=== PATIENT | female | born 1940 | race Caucasian/White ===

== ENCOUNTER 2018-08-25 11:48 | Observation (INO) | payer MEDICARE ==
[2018-08-25] MEDS ORDERED: FEVERALL 650 MG PR PRN (12:15)
--- NOTE | 2018-08-25 12:20 | PCM.HP.ADD ---
Addendum to History & Physical - History & Physical Addendum Addendum to History & Physical: This certifies that the History & Physical in the electronic chart reflects the current health status of the patient. If there are changes in the H&P these changes/exceptions are listed as follows.
[2018-08-25 12:34] LABS: Hematocrit 42.7 % (35-47); Hemoglobin 15.4 gm/dl (12.0-16.0); Mean Cell Volume 86.8 fl (78-100); Mean Corpuscular Hemoglobin 31.3 pg (26-32); Mean Corpuscular Hgb Concent. 36.1 g/dl (32-36); Mean Platelet Volume 9.8 fl (6-9.5); Platelet Count 214 K/mm3 (150-450); Red Blood Count 4.92 M/mm3 (4.1-5.4); Red Cell Distribution Width 13.1 % (11.5-14.0); White Blood Count 10.4 K/mm3 (4.0-10.5)
[2018-08-25] MEDS: Sodium Chloride 0.9% 1000 ML 1,000 ML IV SCH (12:47)
[2018-08-25 12:56] LABS: ALBUMIN 4.8 g/dL (3.5-5.0); ALKALINE PHOSPHATASE 109 U/L (38-126); ANION GAP 19.1 MEQ/L (5-15); BLOOD UREA NITROGEN 17 mg/dL (7-17); CHLORIDE 92 mmol/L (98-107); Calcium 10.4 mg/dL (8.4-10.2); Carbon Dioxide 22 mmol/L (22-30); Creatinine 1 0.95 mg/dL (0.52-1.04); Glucose 108 mg/dL (74-106); NT PRO BNP 66.1 pg/mL (0-1800); Potassium 4.8 mmol/L (3.5-5.1); SGOT/AST 48 U/L (14-36); SGPT/ALT 43 U/L (0-35); SODIUM 127 mmol/L (137-145); Total Protein 8.9 g/dL (6.3-8.2)
[2018-08-25] MEDS: BUMEX 1 MG IV SCH ×2 (13:00→17:23)
[2018-08-25 13:03] LABS: TROPONIN < 0.012 ng/mL (0.000-0.034)
--- NOTE | 2018-08-25 14:30 | XRAY ---
Indication: CHF. Comparison: None PA/lateral chest is clear. Heart is not enlarged with left-sided AICD. Vascularity normal. Bony thorax intact with mild osteopenia and degenerative changes. Impression: Nonacute chest with chronic features.
[2018-08-25] MEDS ORDERED: ZOVIRAX 200 MG PO PRN (17:00)
[2018-08-25] MEDS ORDERED: MEDICATION INTERVENTION PO SCH (17:00)
[2018-08-25] MEDS: THERAGRAN MULTIVITAMIN PO SCH (17:22)
[2018-08-25] MEDS: ZYLOPRIM 100 MG PO SCH (17:22)
[2018-08-25] MEDS: Zocor 10MG PO SCH (17:23)
[2018-08-25] MEDS: ECOTRIN 81 MG PO SCH (17:23)
[2018-08-25] MEDS ORDERED: CANNABIDIOL PO SCH (22:00)
[2018-08-25] MEDS: Coreg 3.125 MG PO SCH (23:36)
[2018-08-25] MEDS: Aldactone 25 MG PO SCH (23:36)
[2018-08-25] MEDS: Ditropan 5 MG PO SCH (23:37)
[2018-08-25] MEDS: Namenda 5 MG PO SCH (23:37)
[2018-08-26 04:18] LABS: Appearance TURBID (CLEAR); Bacteria MODERATE /HPF (NEGATIVE); Bilirubin NEGATIVE (NEGATIVE); Blood SMALL Ery/ul (0-5); Epithelial Cells RARE /HPF (FEW); Glucose NEGATIVE (NEGATIVE); Ketones NEGATIVE (NEGATIVE); Leukocyte Esterase LARGE (NEGATIVE); Nitrite NEGATIVE (NEGATIVE); Protein,Urine Dip 30 (Negative); Specific Gravity 1.006 (1.005-1.025); Urobilinogen NEGATIVE mg/dL (0-1); WBC >100 /HPF (0-5)
[2018-08-26] MEDS: Sodium Chloride 0.9% 1000 ML 1,000 ML IV SCH (08:00)
[2018-08-26] MEDS ORDERED: NON-FORMULARY ITEM (Rosuvastatin Calcium [Rosuvastatin Calcium] 5 MG) PO SCH (10:00)
[2018-08-26] MEDS ORDERED: VITAMIN D2 PO SCH (10:00)
[2018-08-26] MEDS ORDERED: NON-FORMULARY ITEM (Multivitamin [Multivitamins] 1 EACH) PO SCH (10:00)
[2018-08-26] MEDS: THERAGRAN MULTIVITAMIN PO SCH (10:33)
[2018-08-26] MEDS: Coreg 3.125 MG PO SCH ×2 (10:34→22:12)
[2018-08-26] MEDS: ECOTRIN 81 MG PO SCH (10:34)
[2018-08-26] MEDS: ZYLOPRIM 100 MG PO SCH (10:34)
[2018-08-26] MEDS: Namenda 5 MG PO SCH ×2 (10:34→22:12)
[2018-08-26] MEDS: Zocor 10MG PO SCH (10:34)
[2018-08-26] MEDS: Ditropan 5 MG PO SCH ×2 (10:36→22:12)
[2018-08-26] MEDS: Imdur 30 MG PO SCH (10:36)
[2018-08-26] MEDS: Aldactone 25 MG PO SCH ×3 (10:41→22:12)
[2018-08-26] MEDS: BUMEX 1 MG IV SCH ×2 (11:00→17:17)
[2018-08-26 11:30] LABS: ANION GAP 16.2 MEQ/L (5-15); Calcium 9.8 mg/dL (8.4-10.2); Creatinine 1 1.04 mg/dL (0.52-1.04); Potassium 4.5 mmol/L (3.5-5.1)
--- NOTE | 2018-08-26 13:17 | PCM.NOTE ---
Date and Time: 08/26/18 1316 Subjective Assessment: doing better - Review of Systems Constitutional: No Fever, No Chills Eyes: No Symptoms Ears, Nose, & Throat: No Symptoms Respiratory: No Cough, No Short Of Breath Cardiac: No Chest Pain, No Edema, No Syncope Abdominal/Gastrointestinal: No Abdominal Pain, No Nausea, No Vomiting, No Diarrhea Genitourinary Symptoms: No Dysuria Musculoskeletal: No Back Pain, No Neck Pain Skin: No Rash Neurological: No Dizziness, No Focal Weakness, No Sensory Changes Psychological: No Symptoms Endocrine: No Symptoms Hematologic/Lymphatic: No Symptoms Immunological/Allergic: No Symptoms Objective Exam General Appearance: no apparent distress, alert Neurologic Exam: alert, oriented x 3, cooperative, normal mood/affect, nml cerebellar function, sensation nml, No motor deficits Skin Exam: normal color, warm, dry Eye Exam: PERRL, EOMI, eyes nml inspection Ears, Nose, Throat Exam: normal ENT inspection, pharynx normal, moist mucous membranes Neck Exam: normal inspection, non-tender, supple, full range of motion Respiratory Exam: normal breath sounds, lungs clear, No respiratory distress Cardiovascular Exam: regular rate/rhythm, normal heart sounds Gastrointestinal/Abdomen Exam: soft, No tenderness, No mass Extremity Exam: normal inspection, normal range of motion Back Exam: normal inspection, normal range of motion, No CVA tenderness, No vertebral tenderness Pelvic Exam: deferred Rectal Exam: deferred OBJECTIVE DATA Vital Signs: Vital Signs - 24 hr Temp Pulse Resp BP Pulse Ox 08/26/18 12:00 18 08/26/18 11:47 98.1 F 72 18 114/63 96 08/26/18 10:22 88 L 08/26/18 08:00 20 08/26/18 07:25 97.8 F 77 20 129/61 96 08/26/18 06:48 96 08/26/18 04:05 97.6 F 72 20 129/84 94 L 08/26/18 04:00 22 08/26/18 00:00 20 08/25/18 23:38 98.4 F 86 22 119/59 95 08/25/18 23:25 94 L 08/25/18 20:00 22 08/25/18 19:38 97.7 F 80 22 136/70 95 08/25/18 16:03 98.4 F 70 18 117/66 95 08/25/18 13:51 60 18 98 Pain Assessment - Last Documented Pain Intensity 0 Pain Scale Used 0-10 Pain Scale Intake and Output: Intake & Output 08/24/18 08/25/18 08/26/18 08/27/18 11:59 11:59 11:59 11:59 Intake Total 2215 Output Total 2700 Balance -485 Weight 78.2 kg Lab Results: Lab Results-Last 24 Hours 08/26/18 08/26/18 Range/Units 03:58 10:56 Sodium 131 L (137-145) mmol/L Potassium 4.5 (3.5-5.1) mmol/L Chloride 94 L (98-107) mmol/L Carbon Dioxide 25 (22-30) mmol/L Anion Gap 16.2 H (5-15) MEQ/L BUN 23 H (7-17) mg/dL Creatinine 1.04 (0.52-1.04) mg/dL Estimated GFR 54.5 ML/MIN Glucose 123 H (74-106) mg/dL Calcium 9.8 (8.4-10.2) mg/dL Urine Color YELLOW (YELLOW) Urine Appearance TURBID (CLEAR) Urine pH 6.0 (5-6) Ur Specific [place] 1.006 (1.005-1.025) Urine Protein 30 (Negative) Urine Ketones NEGATIVE (NEGATIVE) Urine Blood SMALL (0-5) Joao/ul Urine Nitrite NEGATIVE (NEGATIVE) Urine Bilirubin NEGATIVE (NEGATIVE) Urine Urobilinogen NEGATIVE (0-1) mg/dL Ur Leukocyte Esterase LARGE (NEGATIVE) Urine WBC (Auto) >100 (0-5) /HPF Urine RBC (Auto) 6-10 (0-2) /HPF U Epithel Cells (Auto) RARE (FEW) /HPF Urine Bacteria (Auto) MODERATE (NEGATIVE) /HPF Urine Culture Reflexed YES (NO) Urine Glucose NEGATIVE (NEGATIVE) mg/dL Radiology Exams: Radiology Procedures Category Date Time Status CHEST 2 VIEWS (PA AND LAT) Stat Exams 08/25/18 12:16 Completed Multi-Disciplinary Progress Notes: Multi-Disciplinary Progress Notes 08/26/18 09:34 Respiratory Note by Chrystal Chauhan PATIENTS O2 SAT ON ROOM AIR WHILE AT REST WAS 88%. PATIENT WAS THEN PLACED ON 2 LPM NASAL CANNULA. O2 SAT INCREASED TO 96%. Josh CHAUHAN BAND LINING BANDER Initialized on 08/26/18 09:34 - END OF NOTE Assessment/Plan (1) CHF (congestive heart failure), NYHA class III Current Visit: Yes Status: Acute Code(s): I50.9 - HEART FAILURE, UNSPECIFIED
[2018-08-26] MEDS ORDERED: Miralax Powder 17GM PACKET PO ONE (14:59)
[2018-08-27] MEDS: Sodium Chloride 0.9% 1000 ML 1,000 ML IV SCH (04:34)
[2018-08-27] MEDS: Coreg 3.125 MG PO SCH (09:56)
[2018-08-27] MEDS: Aldactone 25 MG PO SCH (09:57)
[2018-08-27] MEDS: Namenda 5 MG PO SCH (09:57)
[2018-08-27] MEDS: ECOTRIN 81 MG PO SCH (09:57)
[2018-08-27] MEDS: Ditropan 5 MG PO SCH (09:58)
[2018-08-27] MEDS: THERAGRAN MULTIVITAMIN PO SCH (09:59)
[2018-08-27] MEDS: ZYLOPRIM 100 MG PO SCH (09:59)
[2018-08-27] MEDS: Zocor 10MG PO SCH (10:00)
[2018-08-27] MEDS: Imdur 30 MG PO SCH (10:02)
[2018-08-27] MEDS: BUMEX 1 MG IV SCH (10:03)
--- NOTE | 2018-08-27 11:55 | PCM.DS ---
Discharge Summary Date of Admission: 08/25/18 11:48 Admitting Physician: JAZZY RICHTER Consults: Consults on Case 08/25/18 12:15 Nutritional Consult ROUTINE Primary Care Provider: EDDIE RICHTERYESH Allergies Allergies ciprofloxacin [From Cipro] Allergy (Mild, Verified 08/25/18 18:50) Rash donepezil Allergy (Mild, Verified 08/25/18 18:46) Nausea duloxetine [From Cymbalta] Allergy (Mild, Verified 08/25/18 18:50) Rash gabapentin Allergy (Mild, Verified 08/25/18 18:49) Rash Penicillins Allergy (Mild, Verified 02/03/13 10:54) rashes Sulfa (Sulfonamide Antibiotics) Allergy (Mild, Unverified 02/03/13 10:54) Hives cortisone [Cortisone] Allergy (Unknown, Unverified 02/02/13 14:09) omeprazole Allergy (Unknown, Unverified 02/03/13 10:54) Hospital Summary - Vitals & Intake/Output Vital Signs: Vital Signs Temperature 98 F 08/27/18 08:00 Pulse Rate 67 08/27/18 08:00 Respiratory Rate 18 08/27/18 08:00 Blood Pressure 113/61 08/27/18 08:00 O2 Sat by Pulse Oximetry 95 08/27/18 08:00 Oxygen-Last Documented O2 Percentage 2 Liters = 28% Intake & Output: Intake & Output 08/24/18 08/25/18 08/26/18 08/27/18 11:59 11:59 11:59 11:59 Intake Total 2215 2417 Output Total 2700 2950 Balance -485 -533 Weight 78.2 kg 78.7 kg - Lab Result Diagrams: 08/25/18 12:31 08/26/18 10:56 Micro Results-Entire Visit: Microbiology 08/26/18 03:58 Urine Culture - Final Urine, Void MIXED LEVI; 3 OR MORE TYPES. NO PREDOMINANT ORGANISM. NO FURTHER WORKUP. PLEASE RESUBMIT IF CLINICALLY INDICATED. - Radiology Exams Ordered Rad Exams-Entire Visit: Radiology Procedures Category Date Time Status CHEST 2 VIEWS (PA AND LAT) Stat Exams 08/25/18 12:16 Completed - Procedures and Test Procedures and Tests throughout Hospitalization: Therapy Orders & Screens 08/25/18 12:15 EKG STAT Comment: Diagnosis: CHF Oxygen NASAL CANNULA 2 lpm Comment: Diagnosis: CHF Respiratory Therapy Consult ROUTINE Comment: Reason For Exam: 08/26/18 06:52 Respiratory Therapy Assessment DAILY Comment: Diagnosis: CHF Discharge Exam General Appearance: no apparent distress, alert Neurologic Exam: alert, oriented x 3, cooperative, normal mood/affect, nml cerebellar function, sensation nml, No motor deficits Skin Exam: normal color, warm, dry Eye Exam: PERRL, EOMI, eyes nml inspection Ears, Nose, Throat Exam: normal ENT inspection, pharynx normal, moist mucous membranes Neck Exam: normal inspection, non-tender, supple, full range of motion Respiratory Exam: normal breath sounds, lungs clear, No respiratory distress Cardiovascular Exam: regular rate/rhythm, normal heart sounds Gastrointestinal/Abdomen Exam: soft, No tenderness, No mass Extremity Exam: normal inspection, normal range of motion Back Exam: normal inspection, normal range of motion, No CVA tenderness, No vertebral tenderness Pelvic Exam: deferred Rectal Exam: deferred Final Diagnosis/Problem List - Final Discharge Diagnosis/Problem (1) CHF (congestive heart failure), NYHA class III Current Visit: Yes Status: Acute Code(s): I50.9 - HEART FAILURE, UNSPECIFIED (2) HTN (hypertension) Current Visit: Yes Status: Acute Code(s): I10 - ESSENTIAL (PRIMARY) HYPERTENSION (3) CAD (coronary artery disease) Current Visit: Yes Status: Chronic Code(s): I25.10 - ATHSCL HEART DISEASE OF [place] CORONARY ARTERY W/O ANG PCTRS (4) COPD (chronic obstructive pulmonary disease) Current Visit: Yes Status: Acute (5) COPD exacerbation Current Visit: Yes Status: Acute Assessment & Plan: Patient requires 2 liters of Oxygen. Code(s): J44.1 - CHRONIC OBSTRUCTIVE PULMONARY DISEASE W (ACUTE) EXACERBATION - Discharge Discharge Date: 08/27/18 Disposition: HOME HEALTH SERVICE Condition: Stable Prescriptions: Continue Isosorbide Mononitrate 30 mg [Imdur 30 MG] 30 mg PO DAILY Spironolactone 25 mg [Aldactone 25 MG] 50 mg PO TID Aspirin EC 81 mg [Ecotrin 81 mg] 81 mg PO DAILY Ergocalciferol (Vitamin D2) [Vitamin D2] 50,000 unit PO DAILY Oxybutynin Chloride 5 mg [Ditropan 5 MG] 5 mg PO BID Memantine HCl 5 mg PO BID Rosuvastatin Calcium 5 mg PO DAILY Carvedilol 3.125 mg [Coreg 3.125 MG] 3.125 mg PO BID Acyclovir 200 mg Cap [Zovirax 200 mg ] 200 mg PO BID PRN Allopurinol 100 mg [Zyloprim 100 mg] 100 mg PO DAILY Cannabidiol (Cbd) Extract [Epidiolex] 100 ml PO BID Multivitamin [Multivitamins] 1 each PO DAILY Additional Instructions: [place] TO SUPPLY YOUR HOME OXYGEN [facility] WILL CALL YOU TO ARRANGE YOUR FIRST VISIT Follow up with: ISRRAEL HOPKINS [CONSULTING PHYSICIAN] - 1 Week JAZZY RICHTER MD [Primary Care Provider] - 1 Week
[2018-08-27 12:23] VITALS: BP 109/56; PULSE 90; O2SAT 96
[2018-08-27] MEDS ORDERED: SENOKOT 8.6 MG PO ONE (13:53)
[2018-09-19] MEDS ORDERED: VITAMIN D2 PO SCH (10:00)
== END 2018-08-27 15:10 | disposition home health service (06) ==
LOC: MED SURG 11:48
PROVIDERS: ADMIT General Practice; ATTEND General Practice
DX: I50.9 Heart failure, unspecified (principal); I10 Essential (primary) hypertension; I25.10 Atherosclerotic heart disease of native coronary artery without angina pectoris; J44.1 Chronic obstructive pulmonary disease with (acute) exacerbation; E78.5 Hyperlipidemia, unspecified; Z79.899 Other long term (current) drug therapy
CPT/HCPCS: 36415; 71046; 80048; 80053; 81001; 83880; 84484; 85027; 87086; 93005; 93268; 94760; 94762; G0378; A9270-GY

== ENCOUNTER 2018-09-16 18:05 | Observation (INO) | payer MEDICARE ==
[2018-09-16] MEDS ORDERED: Sodium Chloride 0.9% 1000 ML 1,000 ML IV SCH (18:45)
[2018-09-16 18:51] LABS: BASOPHIL % 0.2 % (0.0-0.4); Basophil (Absolute #) 0.02 (0-0.4); Eosinophil % 1.9 % (0.00-5.0); Eosinophil (Absolute #) 0.18 (0-0.5); Granulocyte Absolute (ANC) 5.68 (1.4-6.9); Hematocrit 34.6 % (35-47); Hemoglobin 12.5 gm/dl (12.0-16.0); Lymphocytes % 30.1 % (24.0-44.0); Mean Cell Volume 88.9 fl (78-100); Mean Corpuscular Hemoglobin 32.1 pg (26-32); Mean Corpuscular Hgb Concent. 36.1 g/dl (32-36); Mean Platelet Volume 9.5 fl (6-9.5); Monocyte (Absolute #) 0.85 (0.0-1.3); Monocytes % 8.8 % (0.0-12.0); Platelet Count 239 K/mm3 (150-450); Red Blood Count 3.89 M/mm3 (4.1-5.4); Red Cell Distribution Width 13.1 % (11.5-14.0); White Blood Count 9.6 K/mm3 (4.0-10.5)
[2018-09-16 19:01] LABS: ALBUMIN 4.1 g/dL (3.5-5.0); ALKALINE PHOSPHATASE 87 U/L (38-126); AMYLASE 135 U/L (30-110); ANION GAP 15.8 MEQ/L (5-15); BLOOD UREA NITROGEN 13 mg/dL (7-17); CHLORIDE 88 mmol/L (98-107); Calcium 9.6 mg/dL (8.4-10.2); Carbon Dioxide 27 mmol/L (22-30); Creatinine 1 0.87 mg/dL (0.52-1.04); Glucose 130 mg/dL (74-106); LIPASE 1077 U/L (23-300); Potassium 5.1 mmol/L (3.5-5.1); SGOT/AST 34 U/L (14-36); SGPT/ALT 30 U/L (0-35); SODIUM 125 mmol/L (137-145); Total Protein 7.4 g/dL (6.3-8.2)
[2018-09-16 19:03] LABS: Appearance CLOUDY (CLEAR); Bilirubin NEGATIVE (NEGATIVE); Blood MODERATE Ery/ul (0-5); Glucose NEGATIVE (NEGATIVE); Ketones NEGATIVE (NEGATIVE); Leukocyte Esterase LARGE (NEGATIVE); Nitrite NEGATIVE (NEGATIVE); Protein,Urine Dip 30 (Negative); Specific Gravity 1.003 (1.005-1.025); Urobilinogen NEGATIVE mg/dL (0-1); WBC >100 /HPF (0-5)
[2018-09-16] MEDS ORDERED: Sodium Chloride 0.9% 1000 ML 1,000 ML ONE (19:10)
--- NOTE | 2018-09-16 19:27 | ERPHSYRPT ---
- History of Present Illness Time Seen by Provider: 09/16/18 19:05 Historian: patient, family Exam Limitations: no limitations Patient Subjective Stated Complaint: Pt states "I have been having trouble moving my bowels for the past month. I am taking mirilax every day and I go a little every morning but not much. I feel like my belly is going to explode." Triage Nursing Assessment: Pt presented through the front, alert and oriented X 3, skin pwd. PT ambulates with 2 canes, slowly, facial grimace. PT in no apparent respiratory distress. Physician History: 78 y/o white female patient of Dr. Ang, who has had no prior abd surgeries and chronic intermittent problems with constipation. pt states sx worse in the last month. pt felt as though her abd was going to burst today. pt is on daily miralax and senna. this has only helped a bit. pt has not used enemas or suppositories. pt has an appt to see a pharmacy informatics manager tomorrow in consultation for an upper endoscopy. pt states she has passed a small amt of stool here and flatus and feels a little better. no n/v. pt has had a normal colonoscopy in past but does not recall when. Timing/Duration: intermittent, other (a month) Quality: fullness, pressure Abdominal Pain Onset Location: generalized abdomen Pain Radiation: no radiation Severity of Pain-Max: moderate Severity of Pain-Current: mild Modifying Factors: Improves With: defecating, other (passing flatus helped) Associated Symptoms: No nausea, No vomiting Previous symptoms: same symptoms as today, recently treated Allergies/Adverse Reactions: ciprofloxacin [From Cipro] Allergy (Mild, Verified 08/25/18 18:50) Rash donepezil Allergy (Mild, Verified 08/25/18 18:46) Nausea duloxetine [From Cymbalta] Allergy (Mild, Verified 08/25/18 18:50) Rash gabapentin Allergy (Mild, Verified 08/25/18 18:49) Rash Penicillins Allergy (Mild, Verified 02/03/13 10:54) rashes Sulfa (Sulfonamide Antibiotics) Allergy (Mild, Unverified 02/03/13 10:54) Hives cortisone [Cortisone] Allergy (Unknown, Unverified 02/02/13 14:09) omeprazole Allergy (Unknown, Unverified 02/03/13 10:54) Home Medications: Aspirin EC 81 mg [Ecotrin 81 mg] 81 mg PO DAILY 02/02/13 [History] Isosorbide Mononitrate 30 mg [Imdur 30 MG] 30 mg PO DAILY 02/02/13 [History ] Spironolactone 25 mg [Aldactone 25 MG] 50 mg PO TID 02/02/13 [History] Acyclovir 200 mg Cap [Zovirax 200 mg ] 200 mg PO BID PRN 08/25/18 [ History] Allopurinol 100 mg [Zyloprim 100 mg] 100 mg PO DAILY 08/25/18 [History] Cannabidiol (Cbd) Extract [Epidiolex] 100 ml PO BID 08/25/18 [History] Carvedilol 3.125 mg [Coreg 3.125 MG] 3.125 mg PO BID 08/25/18 [History] Ergocalciferol (Vitamin D2) [Vitamin D2] 50,000 unit PO DAILY 08/25/18 [History] Memantine HCl 5 mg PO BID 08/25/18 [History] Multivitamin [Multivitamins] 1 each PO DAILY 08/25/18 [History] Oxybutynin Chloride 5 mg [Ditropan 5 MG] 5 mg PO BID 08/25/18 [History] Rosuvastatin Calcium 5 mg PO DAILY 08/25/18 [History] Hx Tetanus, Diphtheria Vaccination/Date Given: No Hx Influenza Vaccination/Date Given: Yes Hx Pneumococcal Vaccination/Date Given: Yes Immunizations Up to Date: Yes - Review of Systems Constitutional: No Symptoms Eyes: No Symptoms Ears, Nose, & Throat: No Symptoms Cardiac: No Symptoms Abdominal/Gastrointestinal: Abdominal Pain, Constipation Genitourinary Symptoms: Dysuria Musculoskeletal: No Symptoms Skin: No Symptoms Neurological: No Symptoms Psychological: No Symptoms Endocrine: No Symptoms Hematologic/Lymphatic: No Symptoms Immunological/Allergic: No Symptoms All Other Systems: Reviewed and Negative - Past Medical History Pertinent Past Medical History: Yes Neurological History: Migraines ENT History: Cataracts Cardiac History: Congestive Heart Failure, High Cholesterol, Hypertension Respiratory History: CHF Endocrine Medical History: No Pertinent History Musculoskeletal History: Arthritis, Osteoarthritis GI Medical History: Diverticulosis, GERD, Polyps History: Renal Disease Psycho-Social History: Anxiety Female Reproductive Disorders: Abnormal Uterine Bleeding 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 testing for ovarian cancer - Past Surgical History Past Surgical History: Yes Neuro Surgical History: No Pertinent History Cardiac: Cardiac Catheterization, Internal Defibrillator, Pacemaker Respiratory: No Pertinent History Gastrointestinal: Cholecystectomy Genitourinary: Other Musculoskeletal: Other Female Surgical History: Hysterectomy Other Surgical History: right knee Arthoscopy - Social History Smoking Status: Never smoker Exposure to second hand smoke: No Drug Use: none Patient Lives Alone: Yes - Female History Hx Now: No - Nursing Vital Signs Nursing Vital Signs: Initial Vital Signs Temperature 98.5 F 09/16/18 18:18 Pulse Rate 66 09/16/18 18:18 Respiratory Rate 16 09/16/18 18:18 Blood Pressure 143/64 09/16/18 18:18 O2 Sat by Pulse Oximetry 97 09/16/18 18:18 Pain Scale Pain Intensity 0 - Physical Exam General Appearance: mild distress, alert, anxiety Eye Exam: PERRL/EOMI, eyes nml inspection Ears, Nose, Throat Exam: normal ENT inspection, moist mucous membranes Neck Exam: normal inspection, non-tender, supple, full range of motion Respiratory Exam: normal breath sounds, lungs clear, airway intact, No chest tenderness, No respiratory distress Cardiovascular Exam: regular rate/rhythm, normal heart sounds, normal peripheral pulses Gastrointestinal/Abdomen Exam: soft, normal bowel sounds, No tenderness, No guarding, No rebound Pelvic Exam: not done Rectal Exam: not done Back Exam: normal inspection, normal range of motion, No CVA tenderness, No vertebral tenderness Extremity Exam: normal inspection, normal range of motion, pelvis stable Neurologic Exam: alert, oriented x 3, cooperative, cloth tester quality II-XII nml as tested, normal mood/affect, nml cerebellar function, nml station & gait Skin Exam: normal color, warm, dry Lymphatic Exam: No adenopathy SpO2 Interpretation: normal SpO2: 97 - Course Nursing assessment & vital signs reviewed: Yes Ordered Tests: Active Orders 24 hr Category Date Time Status IV Insertion STAT Care 09/16/18 19:04 Active ABDOMEN AND PELVIS W/0 CONTRAS [CT] Stat Exams 09/16/18 19:28 Taken AMYLASE Stat Lab 09/16/18 18:37 Completed CBC W DIFF Stat Lab 09/16/18 18:37 Completed CMP Stat Lab 09/16/18 18:37 Completed CULTURE,URINE Stat Lab 09/16/18 18:32 Received LIPASE Stat Lab 09/16/18 18:37 Completed Lactic Acid Stat Lab 09/16/18 20:17 Completed UA W/RFX UR CULTURE Stat Lab 09/16/18 18:32 Completed Medication Summary Generic Name Dose Route Start Last Admin Trade Name Freq PRN Reason Stop Dose Admin Sodium Chloride 1,000 mls @ 100 mls/hr 09/16/18 18:45 09/16/18 19:10 Sodium Chloride 0.9% 1000 Ml IV 10/16/18 18:44 100 mls/hr .Q10H NAVIN Administration Discontinued Medications Generic Name Dose Route Start Last Admin Trade Name Freq PRN Reason Stop Dose Admin Hydromorphone HCl 0.5 mg 09/16/18 20:31 09/16/18 20:56 Hydromorphone 1 Mg/Ml Ampule IV 09/16/18 20:32 0.5 mg STAT ONE Administration Hydromorphone HCl Confirm 09/16/18 20:56 Hydromorphone 1 Mg/Ml Ampule Administered 09/16/18 20:57 Dose 1 mg .ROUTE .STK-MED ONE Ceftriaxone Sodium/Dextrose 1 g in 50 mls @ 100 mls/hr 09/16/18 20:32 00:41 Rocephin 1 Gm-D5w 50 Ml Bag IV 09/16/18 21:01 100 mls/hr STAT STA 100 mls/hr Administration Ceftriaxone Sodium/Dextrose Confirm 09/16/18 20:56 Rocephin 1 Gm-D5w 50 Ml Bag Administered 09/16/18 20:57 Dose 1 g in 50 mls @ ud IV .STK-MED ONE Ondansetron HCl 4 mg 09/16/18 20:31 09/17/18 00:41 Zofran 4 Mg/2 Ml Vial IV 09/16/18 20:32 4 mg STAT ONE Administration Ondansetron HCl Confirm 09/17/18 00:36 Zofran 4 Mg/2 Ml Vial Administered 09/17/18 00:37 Dose 4 mg .ROUTE .STK-MED ONE Lab/Rad Data: Laboratory Result Diagrams 09/16/18 18:37 09/16/18 18:37 Laboratory Results 09/16/18 09/16/18 09/16/18 Range/Units 20:17 18:37 18:37 WBC 9.6 (4.0-10.5) K/mm3 RBC 3.89 L (4.1-5.4) M/mm3 Hgb 12.5 (12.0-16.0) gm/dl Hct 34.6 L (35-47) % MCV 88.9 (78-100) fl MCH 32.1 H (26-32) pg MCHC 36.1 H (32-36) g/dl RDW 13.1 (11.5-14.0) % Plt Count 239 (150-450) K/mm3 MPV 9.5 (6-9.5) fl Gran % 59.0 (36.0-66.0) % Eos # (Auto) 0.18 (0-0.5) Absolute Lymphs (auto) 2.90 (1.0-4.6) Absolute Monos (auto) 0.85 (0.0-1.3) Lymphocytes % 30.1 (24.0-44.0) % Monocytes % 8.8 (0.0-12.0) % Eosinophils % 1.9 (0.00-5.0) % Basophils % 0.2 (0.0-0.4) % Absolute Granulocytes 5.68 (1.4-6.9) Basophils # 0.02 (0-0.4) Sodium 125 L (137-145) mmol/L Potassium 5.1 (3.5-5.1) mmol/L Chloride 88 L (98-107) mmol/L Carbon Dioxide 27 (22-30) mmol/L Anion Gap 15.8 H (5-15) MEQ/L BUN 13 (7-17) mg/dL Creatinine 0.87 (0.52-1.04) mg/dL Estimated GFR > 60.0 ML/MIN Glucose 130 H (74-106) mg/dL Lactic Acid 1.7 (0.4-2.0) Calcium 9.6 (8.4-10.2) mg/dL Total Bilirubin 0.40 (0.2-1.3) mg/dL AST 34 (14-36) U/L ALT 30 (0-35) U/L Alkaline Phosphatase 87 (38-126) U/L Serum Total Protein 7.4 (6.3-8.2) g/dL Albumin 4.1 (3.5-5.0) g/dL Amylase 135 H (30-110) U/L Lipase 1077 H (23-300) U/L Urine Color (YELLOW) Urine Appearance (CLEAR) Urine pH (5-6) Ur Specific [place] (1.005-1.025) Urine Protein (Negative) Urine Ketones (NEGATIVE) Urine Blood (0-5) Joao/ul Urine Nitrite (NEGATIVE) Urine Bilirubin (NEGATIVE) Urine Urobilinogen (0-1) mg/dL Ur Leukocyte Esterase (NEGATIVE) Urine WBC (Auto) (0-5) /HPF Urine RBC (Auto) (0-2) /HPF U Epithel Cells (Auto) (FEW) /HPF Urine Bacteria (Auto) (NEGATIVE) /HPF Urine Culture Reflexed (NO) Urine Glucose (NEGATIVE) mg/dL 09/16/18 Range/Units 18:32 WBC (4.0-10.5) K/mm3 RBC (4.1-5.4) M/mm3 Hgb (12.0-16.0) gm/dl Hct (35-47) % MCV (78-100) fl MCH (26-32) pg MCHC (32-36) g/dl RDW (11.5-14.0) % Plt Count (150-450) K/mm3 MPV (6-9.5) fl Gran % (36.0-66.0) % Eos # (Auto) (0-0.5) Absolute Lymphs (auto) (1.0-4.6) Absolute Monos (auto) (0.0-1.3) Lymphocytes % (24.0-44.0) % Monocytes % (0.0-12.0) % Eosinophils % (0.00-5.0) % Basophils % (0.0-0.4) % Absolute Granulocytes (1.4-6.9) Basophils # (0-0.4) Sodium (137-145) mmol/L Potassium (3.5-5.1) mmol/L Chloride (98-107) mmol/L Carbon Dioxide (22-30) mmol/L Anion Gap (5-15) MEQ/L BUN (7-17) mg/dL Creatinine (0.52-1.04) mg/dL Estimated GFR ML/MIN Glucose (74-106) mg/dL Lactic Acid (0.4-2.0) Calcium (8.4-10.2) mg/dL Total Bilirubin (0.2-1.3) mg/dL AST (14-36) U/L ALT (0-35) U/L Alkaline Phosphatase (38-126) U/L Serum Total Protein (6.3-8.2) g/dL Albumin (3.5-5.0) g/dL Amylase (30-110) U/L Lipase (23-300) U/L Urine Color YELLOW (YELLOW) Urine Appearance CLOUDY (CLEAR) Urine pH 7.0 (5-6) Ur Specific [place] 1.003 (1.005-1.025) Urine Protein 30 (Negative) Urine Ketones NEGATIVE (NEGATIVE) Urine Blood MODERATE (0-5) Joao/ul Urine Nitrite NEGATIVE (NEGATIVE) Urine Bilirubin NEGATIVE (NEGATIVE) Urine Urobilinogen NEGATIVE (0-1) mg/dL Ur Leukocyte Esterase LARGE (NEGATIVE) Urine WBC (Auto) >100 (0-5) /HPF Urine RBC (Auto) 6-10 (0-2) /HPF U Epithel Cells (Auto) NONE (FEW) /HPF Urine Bacteria (Auto) NONE (NEGATIVE) /HPF Urine Culture Reflexed YES (NO) Urine Glucose NEGATIVE (NEGATIVE) mg/dL - Progress Progress: improved, re-examined Progress Note: 09/17/18 01:07 ct scan abd/pelvis-distended urinary bladder; mild diffuse fecal stasis. 0030-spoke with dr. ang. ok to give rocephin and ok to place in observation. Discussed with : Juwan Counseled pt/family regarding: lab results, diagnosis, need for follow-up, rad results - Departure Departure Disposition: Observation Clinical Impression: UTI (urinary tract infection), Pancreatitis Condition: Stable Critical Care Time: No Referrals: [facility] [Primary Care Provider] -
[2018-09-16] MEDS ORDERED: Hydromorphone 1 mg/ml Ampule IV ONE (20:31)
[2018-09-16] MEDS ORDERED: Zofran 4 MG/2 ML VIAL IV ONE (20:31)
[2018-09-16] MEDS ORDERED: ROCEPHIN 1 Gm-D5w 50 ml Bag** 1 G/50 ML IVPB IV STA (20:32)
[2018-09-16] MEDS ORDERED: Hydromorphone 1 mg/ml Ampule ONE (20:56)
[2018-09-16] MEDS ORDERED: ROCEPHIN 1 Gm-D5w 50 ml Bag** 1 G/50 ML IVPB IV ONE (20:56)
[2018-09-17] MEDS ORDERED: Zofran 4 MG/2 ML VIAL ONE (00:36)
[2018-09-17] MEDS ORDERED: Sodium Chloride 0.9% 1000 ML 1,000 ML IV STA (02:15)
[2018-09-17] MEDS ORDERED: TYLENOL 325 MG PO PRN (02:15)
[2018-09-17] MEDS ORDERED: Zofran 4 MG/2 ML VIAL IV PRN (02:15)
[2018-09-17 06:31] LABS: BASOPHIL % 0.1 % (0.0-0.4); Basophil (Absolute #) 0.01 (0-0.4); Eosinophil % 1.3 % (0.00-5.0); Eosinophil (Absolute #) 0.13 (0-0.5); Granulocyte Absolute (ANC) 7.03 (1.4-6.9); Granulocytes % 68.3 % (36.0-66.0); Hematocrit 33.6 % (35-47); Hemoglobin 11.9 gm/dl (12.0-16.0); Lymphocyte (Absolute #) 2.41 (1.0-4.6); Lymphocytes % 23.4 % (24.0-44.0); Mean Cell Volume 90.3 fl (78-100); Mean Corpuscular Hgb Concent. 35.4 g/dl (32-36); Mean Platelet Volume 9.6 fl (6-9.5); Monocyte (Absolute #) 0.71 (0.0-1.3); Monocytes % 6.9 % (0.0-12.0); Platelet Count 216 K/mm3 (150-450); Red Blood Count 3.72 M/mm3 (4.1-5.4); Red Cell Distribution Width 13.4 % (11.5-14.0); White Blood Count 10.3 K/mm3 (4.0-10.5)
[2018-09-17 06:39] LABS: Mean Corpuscular Hemoglobin 31.9 pg (26-32)
--- NOTE | 2018-09-17 08:57 | XRAY ---
Indication: Abdomen pain. Constipation. Multiple contiguous axial images obtained through the abdomen and pelvis without contrast as ordered. Comparison: None. Lung bases demonstrate bibasilar dependent atelectasis with fibrosis/scarring. No infiltrate or effusion. Heart is not enlarged. Small hiatal hernia. Noncontrasted stomach and bowel loops appear nonobstructed. Appendix not seen. There is mild diffuse scattered colonic fecal debris throughout. No free fluid/air. Urinary bladder markedly distended concerning for either outlet obstruction versus neurogenic bladder. Previous cholecystectomy and hysterectomy. Left kidney demonstrates a few round low dense lesions, largest 11 mm probable cysts. Remaining liver, pancreas, spleen, adrenal glands, kidneys, ureters, and bladder appear unremarkable for noncontrast exam. Mild scattered aortoiliac calcifications without AAA. Osseous structures demonstrates osteopenia and advanced multilevel degenerative spondylosis including 2-3 mm L5 spondylolisthesis. Additional moderate degenerative changes of both hips. No ventral or inguinal hernias Impression: 1. Diffuse fecal stasis without obstruction. 2. Markedly distended urinary bladder. Rule out outlet obstruction versus neurogenic bladder. 3. Probable left renal cysts. Sonogram may yield further information if clinically warranted. 4. Small hiatal hernia, osteopenia, advanced multilevel degenerative spondylosis including grade 1 L5 spondylolisthesis, and mild degenerative changes of both hips. CT DI 19.19
[2018-09-17 09:14] LABS: AMYLASE 70 U/L (30-110); LIPASE 482 U/L (23-300)
[2018-09-17 10:55] LABS: ALBUMIN 3.5 g/dL (3.5-5.0); ALKALINE PHOSPHATASE 77 U/L (38-126); ANION GAP 14.6 MEQ/L (5-15); BLOOD UREA NITROGEN 11 mg/dL (7-17); CHLORIDE 94 mmol/L (98-107); Calcium 9.2 mg/dL (8.4-10.2); Carbon Dioxide 26 mmol/L (22-30); Glucose 112 mg/dL (74-106); Potassium 4.9 mmol/L (3.5-5.1); SGOT/AST 34 U/L (14-36); SGPT/ALT 31 U/L (0-35); SODIUM 130 mmol/L (137-145); Total Protein 6.7 g/dL (6.3-8.2)
--- NOTE | 2018-09-17 11:59 | PCM.HP ---
History of Present Illness - Chief Complaint Chief Complaint: c/o abdominal pain and weakness for 2-3 days History of Present Illness: is a 78 year old female admitted with c/o abdominal pain for 2-3 days. c /o nausea, - Review of Systems Constitutional: No Fever, No Chills Eyes: No Symptoms Ears, Nose, & Throat: No Symptoms Respiratory: No Cough, No Short Of Breath Cardiac: No Chest Pain, No Edema, No Syncope Abdominal/Gastrointestinal: Abdominal Pain, No Nausea, No Vomiting, No Diarrhea Genitourinary Symptoms: No Dysuria Musculoskeletal: No Back Pain, No Neck Pain Skin: No Rash Neurological: No Dizziness, No Focal Weakness, No Sensory Changes Psychological: No Symptoms Endocrine: No Symptoms Hematologic/Lymphatic: No Symptoms Immunological/Allergic: No Symptoms Medications & Allergies Home Medications: Home Medication List Aspirin EC 81 mg [Ecotrin 81 mg] 81 mg PO DAILY 02/02/13 [History Confirmed 09/17/18] Isosorbide Mononitrate 30 mg [Imdur 30 MG] 30 mg PO DAILY 02/02/13 [ History Confirmed 09/17/18] Spironolactone 25 mg [Aldactone 25 MG] 50 mg PO BID 02/02/13 [History Confirmed 09/17/18] Acyclovir 200 mg Cap [Zovirax 200 mg ] 200 mg PO BID PRN 08/25/18 [ History Confirmed 09/17/18] Allopurinol 100 mg [Zyloprim 100 mg] 100 mg PO DAILY 08/25/18 [History Confirmed 09/17/18] Cannabidiol (Cbd) Extract [Epidiolex] 100 ml PO BID 08/25/18 [History Confirmed 09/16/18] Carvedilol 3.125 mg [Coreg 3.125 MG] 3.125 mg PO BID 08/25/18 [History Confirmed 09/17/18] Ergocalciferol (Vitamin D2) [Vitamin D2] 50,000 unit PO WEEKLY 08/25/18 [ History Confirmed 09/17/18] Memantine HCl 5 mg PO BID 08/25/18 [History Confirmed 09/17/18] Multivitamin [Multivitamins] 1 each PO DAILY 08/25/18 [History Confirmed ] Oxybutynin Chloride 5 mg [Ditropan 5 MG] 5 mg PO BID 08/25/18 [History Confirmed 09/17/18] Rosuvastatin Calcium 5 mg PO DAILY 08/25/18 [History Confirmed 09/17/18] Mirabegron [Myrbetriq] 25 mg PO DAILY 09/17/18 [History Confirmed 09/17/18] Allergies/Adverse Reactions: Allergies Allergy/AdvReac Type Severity Reaction Status Date / Time ciprofloxacin [From Cipro] Allergy Mild Rash Verified 09/17/18 03:00 donepezil Allergy Mild Nausea Verified 09/17/18 03:00 duloxetine [From Cymbalta] Allergy Mild Rash Verified 09/17/18 03:00 gabapentin Allergy Mild Rash Verified 09/17/18 03:00 Penicillins Allergy Mild rashes Verified 09/17/18 03:00 Sulfa (Sulfonamide Allergy Mild Hives Unverified 09/17/18 03:00 Antibiotics) cortisone [Cortisone] Allergy Unknown Unverified 09/17/18 03:00 omeprazole Allergy Unknown Unverified 09/17/18 03:00 - Past Medical History Past Medical History: Yes Neurological History: Migraines ENT History: Cataracts Cardiac History: Congestive Heart Failure, High Cholesterol, Hypertension Respiratory History: CHF Endocrine Medical History: No Pertinent History Musculoskelatal History: Arthritis, Osteoarthritis GI Medical History: Diverticulosis, GERD, Polyps History: Renal Disease Pyscho-Social History: Anxiety Reproductive Disorders: Abnormal Uterine Bleeding Comment: 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 - Female History Are you now?: No - Past Surgical History Past Surgical History: Yes Neuro Surgical History: No Pertinent History Cardiac History: Cardiac Catheterization, Internal Defibrillator, Pacemaker Respiratory Surgery: No Pertinent History GI Surgical History: Cholecystectomy Genitourinary Surgical Hx: Other Musculskeletal Surgical Hx: Other Female Surgical History: Hysterectomy Other Surgical History: right knee Arthoscopy - Social History Smoking Status: Never smoker Exposure to second hand smoke: No Alcohol: None Drug Use: none - Physical Exam Vital Signs: Vital Signs - 24 hr Temp Pulse Resp BP Pulse Ox 09/17/18 11:27 98.1 F 60 16 105/58 98 09/17/18 07:18 98 09/17/18 07:13 98.3 F 60 17 111/55 97 09/17/18 03:58 59 L 18 97 09/17/18 02:43 98.5 F 60 18 131/77 96 09/17/18 01:54 60 20 118/72 98 09/17/18 01:08 97 09/17/18 01:02 60 20 118/86 98 09/16/18 18:18 98.5 F 66 16 143/64 97 Oxygen-Last 24 hours O2 Percentage 2 Liters = 28% O2 Percentage 2 Liters = 28% O2 Percentage 2 Liters = 28% O2 Percentage 2 Liters = 28% O2 Percentage 2 Liters = 28% General Appearance: no apparent distress, alert Neurologic Exam: alert, oriented x 3, cooperative, normal mood/affect, nml cerebellar function, nml station & gait, sensation nml, No motor deficits Eye Exam: PERRL/EOMI, eyes nml inspection Ears, Nose, Throat Exam: normal ENT inspection, TMs normal, pharynx normal, moist mucous membranes Neck Exam: normal inspection, non-tender, supple, full range of motion Respiratory Exam: normal breath sounds, lungs clear, No respiratory distress Cardiovascular Exam: regular rate/rhythm, normal heart sounds, normal peripheral pulses Gastrointestinal/Abdomen Exam: soft, normal bowel sounds, No tenderness, No mass Back Exam: normal inspection, normal range of motion, No CVA tenderness, No vertebral tenderness Extremity Exam: normal inspection, normal range of motion, pelvis stable Skin Exam: normal color, warm, dry, No rash Lymphatic Exam: No adenopathy Results - Labs Lab/Micro Results: Lab Results-Last 24 Hours 09/16/18 09/16/18 09/16/18 Range/Units 18:32 18:37 18:37 WBC 9.6 (4.0-10.5) K/mm3 RBC 3.89 L (4.1-5.4) M/mm3 Hgb 12.5 (12.0-16.0) gm/dl Hct 34.6 L (35-47) % MCV 88.9 (78-100) fl MCH 32.1 H (26-32) pg MCHC 36.1 H (32-36) g/dl RDW 13.1 (11.5-14.0) % Plt Count 239 (150-450) K/mm3 MPV 9.5 (6-9.5) fl Gran % 59.0 (36.0-66.0) % Eos # (Auto) 0.18 (0-0.5) Absolute Lymphs (auto) 2.90 (1.0-4.6) Absolute Monos (auto) 0.85 (0.0-1.3) Lymphocytes % 30.1 (24.0-44.0) % Monocytes % 8.8 (0.0-12.0) % Eosinophils % 1.9 (0.00-5.0) % Basophils % 0.2 (0.0-0.4) % Absolute Granulocytes 5.68 (1.4-6.9) Basophils # 0.02 (0-0.4) Sodium 125 L (137-145) mmol/L Potassium 5.1 (3.5-5.1) mmol/L Chloride 88 L (98-107) mmol/L Carbon Dioxide 27 (22-30) mmol/L Anion Gap 15.8 H (5-15) MEQ/L BUN 13 (7-17) mg/dL Creatinine 0.87 (0.52-1.04) mg/dL Estimated GFR > 60.0 ML/MIN Glucose 130 H (74-106) mg/dL Lactic Acid (0.4-2.0) Calcium 9.6 (8.4-10.2) mg/dL Total Bilirubin 0.40 (0.2-1.3) mg/dL AST 34 (14-36) U/L ALT 30 (0-35) U/L Alkaline Phosphatase 87 (38-126) U/L Serum Total Protein 7.4 (6.3-8.2) g/dL Albumin 4.1 (3.5-5.0) g/dL Amylase 135 H (30-110) U/L Lipase 1077 H (23-300) U/L Urine Color YELLOW (YELLOW) Urine Appearance CLOUDY (CLEAR) Urine pH 7.0 (5-6) Ur Specific [place] 1.003 (1.005-1.025) Urine Protein 30 (Negative) Urine Ketones NEGATIVE (NEGATIVE) Urine Blood MODERATE (0-5) Joao/ul Urine Nitrite NEGATIVE (NEGATIVE) Urine Bilirubin NEGATIVE (NEGATIVE) Urine Urobilinogen NEGATIVE (0-1) mg/dL Ur Leukocyte Esterase LARGE (NEGATIVE) Urine WBC (Auto) >100 (0-5) /HPF Urine RBC (Auto) 6-10 (0-2) /HPF U Epithel Cells (Auto) NONE (FEW) /HPF Urine Bacteria (Auto) NONE (NEGATIVE) /HPF Urine Culture Reflexed YES (NO) Urine Glucose NEGATIVE (NEGATIVE) mg/dL 09/16/18 09/17/18 09/17/18 Range/Units 20:17 06:10 06:10 WBC 10.3 (4.0-10.5) K/mm3 RBC 3.72 L (4.1-5.4) M/mm3 Hgb 11.9 L (12.0-16.0) gm/dl Hct 33.6 L (35-47) % MCV 90.3 (78-100) fl MCH 31.9 (26-32) pg MCHC 35.4 (32-36) g/dl RDW 13.4 (11.5-14.0) % Plt Count 216 (150-450) K/mm3 MPV 9.6 H (6-9.5) fl Gran % 68.3 H (36.0-66.0) % Eos # (Auto) 0.13 (0-0.5) Absolute Lymphs (auto) 2.41 (1.0-4.6) Absolute Monos (auto) 0.71 (0.0-1.3) Lymphocytes % 23.4 L (24.0-44.0) % Monocytes % 6.9 (0.0-12.0) % Eosinophils % 1.3 (0.00-5.0) % Basophils % 0.1 (0.0-0.4) % Absolute Granulocytes 7.03 H (1.4-6.9) Basophils # 0.01 (0-0.4) Sodium 130 L (137-145) mmol/L Potassium 4.9 (3.5-5.1) mmol/L Chloride 94 L (98-107) mmol/L Carbon Dioxide 26 (22-30) mmol/L Anion Gap 14.6 (5-15) MEQ/L BUN 11 (7-17) mg/dL Creatinine 0.80 (0.52-1.04) mg/dL Estimated GFR > 60.0 ML/MIN Glucose 112 H (74-106) mg/dL Lactic Acid 1.7 (0.4-2.0) Calcium 9.2 (8.4-10.2) mg/dL Total Bilirubin 0.50 (0.2-1.3) mg/dL AST 34 (14-36) U/L ALT 31 (0-35) U/L Alkaline Phosphatase 77 (38-126) U/L Serum Total Protein 6.7 (6.3-8.2) g/dL Albumin 3.5 (3.5-5.0) g/dL Amylase (30-110) U/L Lipase (23-300) U/L Urine Color (YELLOW) Urine Appearance (CLEAR) Urine pH (5-6) Ur Specific [place] (1.005-1.025) Urine Protein (Negative) Urine Ketones (NEGATIVE) Urine Blood (0-5) Joao/ul Urine Nitrite (NEGATIVE) Urine Bilirubin (NEGATIVE) Urine Urobilinogen (0-1) mg/dL Ur Leukocyte Esterase (NEGATIVE) Urine WBC (Auto) (0-5) /HPF Urine RBC (Auto) (0-2) /HPF U Epithel Cells (Auto) (FEW) /HPF Urine Bacteria (Auto) (NEGATIVE) /HPF Urine Culture Reflexed (NO) Urine Glucose (NEGATIVE) mg/dL 09/17/18 Range/Units 06:10 WBC (4.0-10.5) K/mm3 RBC (4.1-5.4) M/mm3 Hgb (12.0-16.0) gm/dl Hct (35-47) % MCV (78-100) fl MCH (26-32) pg MCHC (32-36) g/dl RDW (11.5-14.0) % Plt Count (150-450) K/mm3 MPV (6-9.5) fl Gran % (36.0-66.0) % Eos # (Auto) (0-0.5) Absolute Lymphs (auto) (1.0-4.6) Absolute Monos (auto) (0.0-1.3) Lymphocytes % (24.0-44.0) % Monocytes % (0.0-12.0) % Eosinophils % (0.00-5.0) % Basophils % (0.0-0.4) % Absolute Granulocytes (1.4-6.9) Basophils # (0-0.4) Sodium (137-145) mmol/L Potassium (3.5-5.1) mmol/L Chloride (98-107) mmol/L Carbon Dioxide (22-30) mmol/L Anion Gap (5-15) MEQ/L BUN (7-17) mg/dL Creatinine (0.52-1.04) mg/dL Estimated GFR ML/MIN Glucose (74-106) mg/dL Lactic Acid (0.4-2.0) Calcium (8.4-10.2) mg/dL Total Bilirubin (0.2-1.3) mg/dL AST (14-36) U/L ALT (0-35) U/L Alkaline Phosphatase (38-126) U/L Serum Total Protein (6.3-8.2) g/dL Albumin (3.5-5.0) g/dL Amylase 70 (30-110) U/L Lipase 482 H (23-300) U/L Urine Color (YELLOW) Urine Appearance (CLEAR) Urine pH (5-6) Ur Specific [place] (1.005-1.025) Urine Protein (Negative) Urine Ketones (NEGATIVE) Urine Blood (0-5) Joao/ul Urine Nitrite (NEGATIVE) Urine Bilirubin (NEGATIVE) Urine Urobilinogen (0-1) mg/dL Ur Leukocyte Esterase (NEGATIVE) Urine WBC (Auto) (0-5) /HPF Urine RBC (Auto) (0-2) /HPF U Epithel Cells (Auto) (FEW) /HPF Urine Bacteria (Auto) (NEGATIVE) /HPF Urine Culture Reflexed (NO) Urine Glucose (NEGATIVE) mg/dL Microbiology 09/16/18 18:32 Urine Culture - Preliminary Clean Catch Midstream NO GROWTH TO DATE - Radiology Impressions Radiology Exams & Impressions: Radiology Procedures Category Date Time Status ABDOMEN AND PELVIS W/0 CONTRAS [CT] Stat Exams 09/16/18 19:28 Completed MRI ABD W/O CONTRAST [MRI] Routine Exams 09/21/18 06:00 Ordered - Other Procedures and Tests Respiratory Therapy 09/17/18 03:56 Oxygen Nasal Cannula 2 lpm 09/17/18 03:57 Respiratory Therapy Assessment DAILY Assessment/Plan (1) Pancreatitis Current Visit: Yes Status: Acute Qualifiers: Chronicity: acute Pancreatitis type: unspecified pancreatitis type Acute pancreatitis complication: unspecified Qualified Code(s): K85.90 - Acute pancreatitis without necrosis or infection, unspecified Assessment & Plan: Chief Complaint Diagnosis c/o abdominal pain and weakness for 2-3 days Allergies Allergy/AdvReac Type Severity Reaction Status Date / Time ciprofloxacin [From Cipro] Allergy Mild Rash Verified 09/17/18 03:00 donepezil Allergy Mild Nausea Verified 09/17/18 03:00 duloxetine [From Cymbalta] Allergy Mild Rash Verified 09/17/18 03:00 gabapentin Allergy Mild Rash Verified 09/17/18 03:00 Penicillins Allergy Mild rashes Verified 09/17/18 03:00 Sulfa (Sulfonamide Allergy Mild Hives Unverified 09/17/18 03:00 Antibiotics) cortisone [Cortisone] Allergy Unknown Unverified 09/17/18 03:00 omeprazole Allergy Unknown Unverified 09/17/18 03:00 Vital Signs (Last 24 hours) Temp Pulse Resp BP Pulse Ox 09/18/18 07:39 98.3 F 68 18 114/56 99 09/18/18 07:34 82 18 98 09/18/18 04:00 98.1 F 79 15 112/63 97 09/18/18 00:00 98.4 F 64 18 88/48 98 09/17/18 21:11 96 09/17/18 20:00 98.2 F 67 20 98/53 96 09/17/18 16:00 98.1 F 61 17 100/55 98 Home Medications Medication Instructions Recorded Confirmed Last Taken Type Mirabegron [Myrbetriq] 25 mg PO DAILY 09/17/18 09/17/18 09/16/18 History Current Medications Generic Name Dose Route Start Last Admin Trade Name Freq PRN Reason Stop Dose Admin Acetaminophen 650 mg 09/17/18 02:15 Tylenol 325 Mg PO 10/17/18 02:14 Q4H PRN PRN PAIN, FEVER, HEADACHE Acyclovir 200 mg 09/17/18 13:30 Zovirax 200 Mg PO 10/17/18 13:29 BID PRN PRN Allopurinol 100 mg 09/17/18 13:30 09/18/18 08:54 Zyloprim 100 Mg PO 10/17/18 13:29 100 mg DAILY NAVIN Administration Aspirin 81 mg 09/17/18 13:30 09/18/18 08:54 Ecotrin 81 Mg PO 10/17/18 13:29 81 mg DAILY NAVIN Administration Carvedilol 3.125 mg 09/17/18 13:30 09/18/18 08:54 Coreg 3.125 Mg PO 10/17/18 13:29 3.125 mg BID NAVIN Administration Ergocalciferol 50,000 unit 09/21/18 10:00 Vitamin D2 PO 10/21/18 09:59 Q7D NAVIN Ceftriaxone Sodium/Dextrose 1 g in 50 mls @ 100 mls/hr 09/17/18 22:00 21:28 Rocephin 1 Gm-D5w 50 Ml Bag IV 10/17/18 21:59 100 mls/hr Q24H22 NAVIN Administration Isosorbide Mononitrate 30 mg 09/17/18 13:30 09/18/18 08:53 Imdur 30 Mg PO 10/17/18 13:29 30 mg DAILY NAVIN Administration Memantine 5 mg 09/17/18 13:30 09/18/18 08:54 Namenda 5 Mg PO 10/17/18 13:29 5 mg BID NAVIN Administration Miscellaneous Information 1 each 09/17/18 13:30 Medication Intervention PO 10/17/18 13:29 .RN TO CHECK ON [facility] Miscellaneous Information 1 each 09/17/18 13:45 Medication Intervention PO 10/17/18 13:44 .RN TO CHECK ON [facility] Multivitamins Therapeutic 1 tab 09/17/18 13:30 09/18/18 08:54 Theragran Multivitamin PO 10/17/18 13:29 1 tab DAILY NAVIN Administration Ondansetron HCl 4 mg 09/17/18 02:15 Zofran 4 Mg/2 Ml Vial IV 10/17/18 02:14 Q6H PRN PRN NAUSEA/VOMITING Oxybutynin Chloride 5 mg 09/17/18 13:30 09/18/18 08:53 Ditropan 5 Mg PO 10/17/18 13:29 5 mg BID NAVIN Administration Pantoprazole Sodium 40 mg 09/17/18 12:30 09/18/18 08:53 Protonix 40 Mg Iv IV 10/17/18 12:29 40 mg Q24H10 NAVIN Administration Polyethylene Glycol 17 gm 09/17/18 22:00 05/30/19 21:47 Miralax Powder 17gm Packet PO 10/17/18 21:59 17 gm HS NAVIN Administration Simvastatin 10 mg 09/17/18 13:30 09/18/18 08:54 Zocor 10mg PO 10/17/18 13:29 10 mg DAILY NAVIN Administration Spironolactone 50 mg 09/17/18 17:00 09/18/18 08:53 Aldactone 25 Mg PO 10/17/18 16:59 50 mg BID DIURETIC NAVIN Administration Discontinued Medications Generic Name Dose Route Start Last Admin Trade Name Freq PRN Reason Stop Dose Admin Hydromorphone HCl 0.5 mg 09/16/18 20:31 09/16/18 20:56 Hydromorphone 1 Mg/Ml Ampule IV 09/16/18 20:32 0.5 mg STAT ONE Administration Hydromorphone HCl Confirm 09/16/18 20:56 Hydromorphone 1 Mg/Ml Ampule Administered 09/16/18 20:57 Dose 1 mg .ROUTE .STK-MED ONE Sodium Chloride 1,000 mls @ 100 mls/hr 09/16/18 18:45 09/16/18 19:10 Sodium Chloride 0.9% 1000 Ml IV 10/16/18 18:44 100 mls/hr .Q10H NAVIN Administration Ceftriaxone Sodium/Dextrose 1 g in 50 mls @ 100 mls/hr 09/16/18 20:32 00:41 Rocephin 1 Gm-D5w 50 Ml Bag IV 09/16/18 21:01 100 mls/hr STAT STA 100 mls/hr Administration Ceftriaxone Sodium/Dextrose Confirm 09/16/18 20:56 Rocephin 1 Gm-D5w 50 Ml Bag Administered 09/16/18 20:57 Dose 1 g in 50 mls @ ud IV .STK-MED ONE Sodium Chloride Confirm 09/16/18 19:10 Sodium Chloride 0.9% 1000 Ml Administered 09/16/18 19:11 Dose 1,000 mls @ ud .ROUTE .STK-MED ONE Sodium Chloride 1,000 mls @ 75 mls/hr 09/17/18 02:15 09/17/18 08:02 Sodium Chloride 0.9% 1000 Ml IV 09/17/18 15:34 75 mls/hr .[id number] STA Administration Ondansetron HCl 4 mg 09/16/18 20:31 09/17/18 00:41 Zofran 4 Mg/2 Ml Vial IV 09/16/18 20:32 4 mg STAT ONE Administration Ondansetron HCl Confirm 09/17/18 00:36 Zofran 4 Mg/2 Ml Vial Administered 09/17/18 00:37 Dose 4 mg .ROUTE .STK-MED ONE Intake & Output (Last 24 hours) 09/16/18 09/17/18 09/18/18 09/19/18 11:59 11:59 11:59 11:59 Intake Total 423 2599 Output Total 800 3000 Balance -377 -401 Weight 78.3 kg Microbiology Results (Last 24 hours) 09/16/18 18:32 Clean Catch Midstream Urine Culture - Final <10K NORMAL SKIN LEVI PROBABLE SKIN CONTAMINANT Orders (Last 24 hours) Category Date Time Status MRI ABD W/O CONTRAST [MRI] Routine Exams 09/21/18 06:00 Ordered Acyclovir 200 mg Cap [Zovirax 200 mg ] Med 09/17/18 13:30 Active 200 mg PO BID PRN PRN Allopurinol 100 mg [Zyloprim 100 mg] Med 09/17/18 13:30 Active 100 mg PO DAILY Aspirin EC 81 mg [Ecotrin 81 mg] Med 09/17/18 13:30 Active 81 mg PO DAILY Carvedilol 3.125 mg [Coreg 3.125 MG] Med 09/17/18 13:30 Active 3.125 mg PO BID Ceftriaxone 1 GM/50 ML PREMIX* [ROCEPHIN 1 Gm-D5w 50 ml Med 09/17/18 22:00 Active Bag] 1 g in 50 ml IV Q24H22 Ergocalciferol (Vitamin D2) [Vitamin D2] Med 09/21/18 10:00 Active 50,000 unit PO Q7D Isosorbide Mononitrate 30 mg [Imdur 30 MG] Med 09/17/18 13:30 Active 30 mg PO DAILY Medication Intervention Med 09/17/18 13:30 Active 1 each PO .RN TO CHECK ON Medication Intervention Med 09/17/18 13:45 Active 1 each PO .RN TO CHECK ON Memantine HCl 5 mg [Namenda 5 MG] Med 09/17/18 13:30 Active 5 mg PO BID Multivitamins,Therapeutic Tab* [Theragran Multivitamin* Med 09/17/18 13:30 Active ] 1 tab PO DAILY Oxybutynin Chloride 5 mg [Ditropan 5 MG] Med 09/17/18 13:30 Active 5 mg PO BID Pantoprazole 40 mg [Protonix 40 mg IV] Med 09/17/18 12:30 Active 40 mg IV Q24H10 Polyethylene Glycol 3350 17 gm [Miralax Powder 17GM Med 09/17/18 22:00 Active PACKET] 17 gm PO HS Simvastatin 10 mg [Zocor 10MG] Med 09/17/18 13:30 Active 10 mg PO DAILY Spironolactone 25 mg [Aldactone 25 MG] Med 09/17/18 17:00 Active 50 mg PO BID DIURETIC Patient Care Notes (Last 24 hours) 09/17/18 18:00 MANAGER BUSINESS CONTINUITY Note by Ina Toth ambulated pt in hallway. pt walked 120 feet using her canes while on 2 liters of oxygen Initialized on 09/17/18 18:00 - END OF NOTE 09/17/18 14:37 Case Management Note by Nelda Ernst CALL TO [facility] TO REPORT THAT PT IS HERE IN OBSERVATION BED. WILL FAX INFO ON DISCHARGE. Initialized on 09/17/18 14:37 - END OF NOTE Code(s): K85.90 - ACUTE PANCREATITIS WITHOUT NECROSIS OR INFECTION, UNSP (2) UTI (urinary tract infection) Current Visit: Yes Status: Acute Code(s): N39.0 - URINARY TRACT INFECTION, SITE NOT SPECIFIED (3) CHF (congestive heart failure), NYHA class III Current Visit: No Status: Acute Code(s): I50.9 - HEART FAILURE, UNSPECIFIED (4) COPD (chronic obstructive pulmonary disease) Current Visit: No Status: Acute (5) CAD (coronary artery disease) Current Visit: No Status: Chronic Code(s): I25.10 - ATHSCL HEART DISEASE OF [place] CORONARY ARTERY W/O ANG PCTRS
[2018-09-17] MEDS: PROTONIX 40 MG IV IV SCH (13:27)
[2018-09-17] MEDS ORDERED: MEDICATION INTERVENTION PO SCH ×2 (13:30→13:45)
[2018-09-17] MEDS ORDERED: ZOVIRAX 200 MG PO PRN (13:30)
[2018-09-17] MEDS: Imdur 30 MG PO SCH (16:36)
[2018-09-17] MEDS: Namenda 5 MG PO SCH ×2 (16:36→21:28)
[2018-09-17] MEDS: Ditropan 5 MG PO SCH ×2 (16:36→21:29)
[2018-09-17] MEDS: ECOTRIN 81 MG PO SCH (16:37)
[2018-09-17] MEDS: Coreg 3.125 MG PO SCH ×2 (16:37→21:04)
[2018-09-17] MEDS: ZYLOPRIM 100 MG PO SCH (16:37)
[2018-09-17] MEDS: Zocor 10MG PO SCH (16:37)
[2018-09-17] MEDS: THERAGRAN MULTIVITAMIN PO SCH (16:37)
[2018-09-17] MEDS: Aldactone 25 MG PO SCH (17:51)
[2018-09-17] MEDS ORDERED: ROCEPHIN 1 Gm-D5w 50 ml Bag** 1 G/50 ML IVPB IV SCH (22:00)
[2018-09-17] MEDS ORDERED: CANNABIDIOL PO SCH (22:00)
[2018-09-17] MEDS ORDERED: Miralax Powder 17GM PACKET PO SCH (22:00)
[2018-09-18] MEDS: Ditropan 5 MG PO SCH (08:53)
[2018-09-18] MEDS: Aldactone 25 MG PO SCH (08:53)
[2018-09-18] MEDS: PROTONIX 40 MG IV IV SCH (08:53)
[2018-09-18] MEDS: Imdur 30 MG PO SCH (08:53)
[2018-09-18] MEDS: ECOTRIN 81 MG PO SCH (08:54)
[2018-09-18] MEDS: ZYLOPRIM 100 MG PO SCH (08:54)
[2018-09-18] MEDS: Namenda 5 MG PO SCH (08:54)
[2018-09-18] MEDS: Zocor 10MG PO SCH (08:54)
[2018-09-18] MEDS: Coreg 3.125 MG PO SCH (08:54)
[2018-09-18] MEDS: THERAGRAN MULTIVITAMIN PO SCH (08:54)
[2018-09-18] MEDS ORDERED: NON-FORMULARY ITEM (Multivitamin [Multivitamins] 1 EACH) PO SCH (10:00)
[2018-09-18] MEDS ORDERED: NON-FORMULARY ITEM (Rosuvastatin Calcium [Rosuvastatin Calcium] 5 MG) PO SCH (10:00)
--- NOTE | 2018-09-18 12:55 | PCM.DS ---
Discharge Summary Date of Admission: 09/17/18 02:09 Admitting Physician: JAZZY RICHTER Primary Care Provider: [facility] Allergies Allergies ciprofloxacin [From Cipro] Allergy (Mild, Verified 09/17/18 03:00) Rash donepezil Allergy (Mild, Verified 09/17/18 03:00) Nausea duloxetine [From Cymbalta] Allergy (Mild, Verified 09/17/18 03:00) Rash gabapentin Allergy (Mild, Verified 09/17/18 03:00) Rash Penicillins Allergy (Mild, Verified 09/17/18 03:00) rashes Sulfa (Sulfonamide Antibiotics) Allergy (Mild, Unverified 09/17/18 03:00) Hives cortisone [Cortisone] Allergy (Unknown, Unverified 09/17/18 03:00) omeprazole Allergy (Unknown, Unverified 09/17/18 03:00) Hospital Summary - Hospital Course Hospital Course: Chief Complaint Diagnosis c/o abdominal pain and weakness for 2-3 days Allergies Allergy/AdvReac Type Severity Reaction Status Date / Time ciprofloxacin [From Cipro] Allergy Mild Rash Verified 09/17/18 03:00 donepezil Allergy Mild Nausea Verified 09/17/18 03:00 duloxetine [From Cymbalta] Allergy Mild Rash Verified 09/17/18 03:00 gabapentin Allergy Mild Rash Verified 09/17/18 03:00 Penicillins Allergy Mild rashes Verified 09/17/18 03:00 Sulfa (Sulfonamide Allergy Mild Hives Unverified 09/17/18 03:00 Antibiotics) cortisone [Cortisone] Allergy Unknown Unverified 09/17/18 03:00 omeprazole Allergy Unknown Unverified 09/17/18 03:00 Vital Signs (Last 24 hours) Temp Pulse Resp BP Pulse Ox 09/18/18 07:39 98.3 F 68 18 114/56 99 09/18/18 07:34 82 18 98 09/18/18 04:00 98.1 F 79 15 112/63 97 09/18/18 00:00 98.4 F 64 18 88/48 98 09/17/18 21:11 96 09/17/18 20:00 98.2 F 67 20 98/53 96 09/17/18 16:00 98.1 F 61 17 100/55 98 Home Medications Medication Instructions Recorded Confirmed Last Taken Type Mirabegron [Myrbetriq] 25 mg PO DAILY 09/17/18 09/17/18 09/16/18 History Current Medications Generic Name Dose Route Start Last Admin Trade Name Allen PRN Reason Stop Dose Admin Acetaminophen 650 mg 09/17/18 02:15 Tylenol 325 Mg PO 10/17/18 02:14 Q4H PRN PRN PAIN, FEVER, HEADACHE Acyclovir 200 mg 09/17/18 13:30 Zovirax 200 Mg PO 10/17/18 13:29 BID PRN PRN Allopurinol 100 mg 09/17/18 13:30 09/18/18 08:54 Zyloprim 100 Mg PO 10/17/18 13:29 100 mg DAILY NAVIN Administration Aspirin 81 mg 09/17/18 13:30 09/18/18 08:54 Ecotrin 81 Mg PO 10/17/18 13:29 81 mg DAILY NAVIN Administration Carvedilol 3.125 mg 09/17/18 13:30 09/18/18 08:54 Coreg 3.125 Mg PO 10/17/18 13:29 3.125 mg BID NAVIN Administration Ergocalciferol 50,000 unit 09/21/18 10:00 Vitamin D2 PO 10/21/18 09:59 Q7D NAVIN Ceftriaxone Sodium/Dextrose 1 g in 50 mls @ 100 mls/hr 09/17/18 22:00 21:28 Rocephin 1 Gm-D5w 50 Ml Bag IV 10/17/18 21:59 100 mls/hr Q24H22 NAVIN Administration Isosorbide Mononitrate 30 mg 09/17/18 13:30 09/18/18 08:53 Imdur 30 Mg PO 10/17/18 13:29 30 mg DAILY NAVIN Administration Memantine 5 mg 09/17/18 13:30 09/18/18 08:54 Namenda 5 Mg PO 10/17/18 13:29 5 mg BID NAVIN Administration Miscellaneous Information 1 each 09/17/18 13:30 Medication Intervention PO 10/17/18 13:29 .RN TO CHECK ON [facility] Miscellaneous Information 1 each 09/17/18 13:45 Medication Intervention PO 10/17/18 13:44 .RN TO CHECK ON NAVIN Multivitamins Therapeutic 1 tab 09/17/18 13:30 09/18/18 08:54 Theragran Multivitamin PO 10/17/18 13:29 1 tab DAILY NAVIN Administration Ondansetron HCl 4 mg 09/17/18 02:15 Zofran 4 Mg/2 Ml Vial IV 10/17/18 02:14 Q6H PRN PRN NAUSEA/VOMITING Oxybutynin Chloride 5 mg 09/17/18 13:30 09/18/18 08:53 Ditropan 5 Mg PO 10/17/18 13:29 5 mg BID NAVIN Administration Pantoprazole Sodium 40 mg 09/17/18 12:30 09/18/18 08:53 Protonix 40 Mg Iv IV 10/17/18 12:29 40 mg Q24H10 NAVIN Administration Polyethylene Glycol 17 gm 09/17/18 22:00 09/17/18 21:47 Miralax Powder 17gm Packet PO 10/17/18 21:59 17 gm HS NAVIN Administration Simvastatin 10 mg 09/17/18 13:30 09/18/18 08:54 Zocor 10mg PO 10/17/18 13:29 10 mg DAILY NAVIN Administration Spironolactone 50 mg 09/17/18 17:00 09/18/18 08:53 Aldactone 25 Mg PO 10/17/18 16:59 50 mg BID DIURETIC NAVIN Administration Discontinued Medications Generic Name Dose Route Start Last Admin Trade Name Freq PRN Reason Stop Dose Admin Hydromorphone HCl 0.5 mg 09/16/18 20:31 09/16/18 20:56 Hydromorphone 1 Mg/Ml Ampule IV 09/16/18 20:32 0.5 mg STAT ONE Administration Hydromorphone HCl Confirm 09/16/18 20:56 Hydromorphone 1 Mg/Ml Ampule Administered 09/16/18 20:57 Dose 1 mg .ROUTE .STK-MED ONE Sodium Chloride 1,000 mls @ 100 mls/hr 09/16/18 18:45 09/16/18 19:10 Sodium Chloride 0.9% 1000 Ml IV 10/16/18 18:44 100 mls/hr .Q10H NAVIN Administration Ceftriaxone Sodium/Dextrose 1 g in 50 mls @ 100 mls/hr 09/16/18 20:32 00:41 Rocephin 1 Gm-D5w 50 Ml Bag IV 09/16/18 21:01 100 mls/hr STAT STA 100 mls/hr Administration Ceftriaxone Sodium/Dextrose Confirm 09/16/18 20:56 Rocephin 1 Gm-D5w 50 Ml Bag Administered 09/16/18 20:57 Dose 1 g in 50 mls @ ud IV .STK-MED ONE Sodium Chloride Confirm 09/16/18 19:10 Sodium Chloride 0.9% 1000 Ml Administered 09/16/18 19:11 Dose 1,000 mls @ ud .ROUTE .STK-MED ONE Sodium Chloride 1,000 mls @ 75 mls/hr 09/17/18 02:15 09/17/18 08:02 Sodium Chloride 0.9% 1000 Ml IV 09/17/18 15:34 75 mls/hr .[id number] STA Administration Ondansetron HCl 4 mg 09/16/18 20:31 09/17/18 00:41 Zofran 4 Mg/2 Ml Vial IV 09/16/18 20:32 4 mg STAT ONE Administration Ondansetron HCl Confirm 09/17/18 00:36 Zofran 4 Mg/2 Ml Vial Administered 09/17/18 00:37 Dose 4 mg .ROUTE .STK-MED ONE Intake & Output (Last 24 hours) 09/16/18 09/17/18 09/18/18 09/19/18 11:59 11:59 11:59 11:59 Intake Total 423 2599 Output Total 800 3000 Balance -377 -401 Weight 78.3 kg Microbiology Results (Last 24 hours) 09/16/18 18:32 Clean Catch Midstream Urine Culture - Final <10K NORMAL SKIN LEVI PROBABLE SKIN CONTAMINANT Orders (Last 24 hours) Category Date Time Status MRI ABD W/O CONTRAST [MRI] Routine Exams 09/21/18 06:00 Ordered Acyclovir 200 mg Cap [Zovirax 200 mg ] Med 09/17/18 13:30 Active 200 mg PO BID PRN PRN Allopurinol 100 mg [Zyloprim 100 mg] Med 09/17/18 13:30 Active 100 mg PO DAILY Aspirin EC 81 mg [Ecotrin 81 mg] Med 09/17/18 13:30 Active 81 mg PO DAILY Carvedilol 3.125 mg [Coreg 3.125 MG] Med 09/17/18 13:30 Active 3.125 mg PO BID Ceftriaxone 1 GM/50 ML PREMIX* [ROCEPHIN 1 Gm-D5w 50 ml Med 09/17/18 22:00 Active Bag] 1 g in 50 ml IV Q24H22 Ergocalciferol (Vitamin D2) [Vitamin D2] Med 09/21/18 10:00 Active 50,000 unit PO Q7D Isosorbide Mononitrate 30 mg [Imdur 30 MG] Med 09/17/18 13:30 Active 30 mg PO DAILY Medication Intervention Med 09/17/18 13:30 Active 1 each PO .RN TO CHECK ON Medication Intervention Med 09/17/18 13:45 Active 1 each PO .RN TO CHECK ON Memantine HCl 5 mg [Namenda 5 MG] Med 09/17/18 13:30 Active 5 mg PO BID Multivitamins,Therapeutic Tab* [Theragran Multivitamin* Med 09/17/18 13:30 Active ] 1 tab PO DAILY Oxybutynin Chloride 5 mg [Ditropan 5 MG] Med 09/17/18 13:30 Active 5 mg PO BID Pantoprazole 40 mg [Protonix 40 mg IV] Med 09/17/18 12:30 Active 40 mg IV Q24H10 Polyethylene Glycol 3350 17 gm [Miralax Powder 17GM Med 09/17/18 22:00 Active PACKET] 17 gm PO HS Simvastatin 10 mg [Zocor 10MG] Med 09/17/18 13:30 Active 10 mg PO DAILY Spironolactone 25 mg [Aldactone 25 MG] Med 09/17/18 17:00 Active 50 mg PO BID DIURETIC Patient Care Notes (Last 24 hours) 09/17/18 18:00 [employer] Note by Ina Toth ambulated pt in hallway. pt walked 120 feet using her canes while on 2 liters of oxygen Initialized on 09/17/18 18:00 - END OF NOTE 09/17/18 14:37 Case Management Note by Nelda Ernst CALL TO [facility] TO REPORT THAT PT IS HERE IN OBSERVATION BED. WILL FAX INFO ON DISCHARGE. Initialized on 09/17/18 14:37 - END OF NOTE - Vitals & Intake/Output Vital Signs: Vital Signs Temperature 98.3 F 09/18/18 07:39 Pulse Rate 68 09/18/18 07:39 Respiratory Rate 18 09/18/18 07:39 Blood Pressure 114/56 09/18/18 07:39 O2 Sat by Pulse Oximetry 99 09/18/18 07:39 Oxygen-Last Documented O2 Percentage 2 Liters = 28% Intake & Output: Intake & Output 09/16/18 09/17/18 09/18/18 09/19/18 11:59 11:59 11:59 11:59 Intake Total 423 2599 Output Total 800 3000 Balance -377 -401 Weight 78.3 kg - Lab Result Diagrams: 09/17/18 06:10 09/17/18 06:10 Micro Results-Entire Visit: Microbiology 09/16/18 18:32 Urine Culture - Final Clean Catch Midstream <10K NORMAL SKIN LEVI PROBABLE SKIN CONTAMINANT - Radiology Exams Ordered Rad Exams-Entire Visit: Radiology Procedures Category Date Time Status ABDOMEN AND PELVIS W/0 CONTRAS [CT] Stat Exams 09/16/18 19:28 Completed MRI ABD W/O CONTRAST [MRI] Routine Exams 09/21/18 06:00 Ordered - Procedures and Test Procedures and Tests throughout Hospitalization: Therapy Orders & Screens 09/17/18 02:57 RT Screen per Nursing Assess Comment: Protocol Order Physician Instructions: Greater than 3 points order RT Admission Screen Reason For Exam: Triggered on Admission Diagnosis: UTI; Pancreatitis Diagnosis: UTI; Pancreatitis Pneumonia: No Home O2: Yes Asthma: No CHF: Yes Home Nebs/MDI: No Total Points: 8 09/17/18 03:56 Oxygen Nasal Cannula 2 lpm Comment: Diagnosis: UTI; Pancreatitis 09/17/18 03:57 Respiratory Therapy Assessment DAILY Comment: Diagnosis: UTI; Pancreatitis Discharge Exam General Appearance: no apparent distress, alert Neurologic Exam: alert, oriented x 3, cooperative, normal mood/affect, nml cerebellar function, sensation nml, No motor deficits Eye Exam: PERRL, EOMI, eyes nml inspection Ears, Nose, Throat Exam: normal ENT inspection, pharynx normal, moist mucous membranes Neck Exam: normal inspection, non-tender, supple, full range of motion Respiratory Exam: normal breath sounds, lungs clear, No respiratory distress Cardiovascular Exam: regular rate/rhythm, normal heart sounds Gastrointestinal/Abdomen Exam: soft, No tenderness, No mass Pelvic Exam: deferred Rectal Exam: deferred Back Exam: normal inspection, normal range of motion, No CVA tenderness, No vertebral tenderness Extremity Exam: normal inspection, normal range of motion Skin Exam: normal color, warm, dry Final Diagnosis/Problem List - Final Discharge Diagnosis/Problem (1) Pancreatitis Current Visit: Yes Status: Resolved Code(s): K85.90 - ACUTE PANCREATITIS WITHOUT NECROSIS OR INFECTION, UNSP (2) UTI (urinary tract infection) Current Visit: Yes Status: Resolved Code(s): N39.0 - URINARY TRACT INFECTION , SITE NOT SPECIFIED (3) CHF (congestive heart failure), NYHA class III Current Visit: No Status: Chronic Code(s): I50.9 - HEART FAILURE, UNSPECIFIED (4) COPD (chronic obstructive pulmonary disease) Current Visit: No Status: Chronic (5) CAD (coronary artery disease) Current Visit: No Status: Chronic Code(s): I25.10 - ATHSCL HEART DISEASE OF [place] CORONARY ARTERY W/O ANG PCTRS - Discharge Discharge Date: 09/18/18 Disposition: Home, Self-Care Condition: Stable Prescriptions: Continue Isosorbide Mononitrate 30 mg [Imdur 30 MG] 30 mg PO DAILY Spironolactone 25 mg [Aldactone 25 MG] 50 mg PO BID Aspirin EC 81 mg [Ecotrin 81 mg] 81 mg PO DAILY Ergocalciferol (Vitamin D2) [Vitamin D2] 50,000 unit PO WEEKLY Oxybutynin Chloride 5 mg [Ditropan 5 MG] 5 mg PO BID Memantine HCl 5 mg PO BID Rosuvastatin Calcium 5 mg PO DAILY Carvedilol 3.125 mg [Coreg 3.125 MG] 3.125 mg PO BID Acyclovir 200 mg Cap [Zovirax 200 mg ] 200 mg PO BID PRN Allopurinol 100 mg [Zyloprim 100 mg] 100 mg PO DAILY Cannabidiol (Cbd) Extract [Epidiolex] 100 ml PO BID Multivitamin [Multivitamins] 1 each PO DAILY Mirabegron [Myrbetriq] 25 mg PO DAILY Follow up with: [facility] [Primary Care Provider] - 1 Week JAZZY RICHTER MD [ACTIVE STAFF] - 1 Week
[2018-09-18 16:45] VITALS: BP 119/57; PULSE 70; O2SAT 97
[2018-09-21] MEDS ORDERED: VITAMIN D2 PO SCH (10:00)
== END 2018-09-18 17:30 | disposition home or self-care (01) ==
LOC: ED 18:05 → MED SURG 09-17 02:09
PROVIDERS: ADMIT General Practice; ATTEND General Practice
DX: K85.90 Acute pancreatitis without necrosis or infection, unspecified (principal); N39.0 Urinary tract infection, site not specified; I50.9 Heart failure, unspecified; J44.9 Chronic obstructive pulmonary disease, unspecified; I25.10 Atherosclerotic heart disease of native coronary artery without angina pectoris; I10 Essential (primary) hypertension; E78.00 Pure hypercholesterolemia, unspecified; R53.1 Weakness
CPT/HCPCS: 36000; 36415; 74176; 80053; 81001; 82150; 83605; 83690; 85025; 87086; 94760; 96360; 96361; 96365; 96374; 96375; 99285; G0378; J0696; J1170; J2405; A9270-GY

== ENCOUNTER 2019-12-04 12:15 | Observation (INO) | payer MEDICARE ==
[2019-12-04] MEDS ORDERED: TYLENOL 325 MG PO STA (12:43)
[2019-12-04] MEDS ORDERED: TYLENOL 325 MG ONE (12:52)
[2019-12-04 13:55] LABS: ALBUMIN 4.3 g/dL (3.5-5.0); ANION GAP 15.5 MEQ/L (5-15); BILIRUBIN,TOTAL 0.7 mg/dL (0.2-1.3); Calcium 9.4 mg/dL (8.4-10.2); Creatinine 1 1.04 mg/dL (0.52-1.04); Potassium 4.1 mmol/L (3.5-5.1); Total Protein 7.6 g/dL (6.3-8.2)
[2019-12-04 13:58] LABS: BASOPHIL % 0.3 % (0.0-0.4); Basophil (Absolute #) 0.02 (0-0.4); Eosinophil % 0.6 % (0.00-5.0); Eosinophil (Absolute #) 0.04 (0-0.5); Hematocrit 38.9 % (35-47); Hemoglobin 13.2 gm/dl (12.0-16.0); Lymphocyte (Absolute #) 2.03 (1.0-4.6); Lymphocytes % 30.2 % (24.0-44.0); Mean Cell Volume 95.1 fl (78-100); Mean Corpuscular Hemoglobin 32.3 pg (26-32); Mean Corpuscular Hgb Concent. 33.9 g/dl (32-36); Mean Platelet Volume 10.5 fl (7.5-11.0); Monocyte (Absolute #) 0.84 (0.0-1.3); Monocytes % 12.5 % (0.0-12.0); Neutrophil % 56.4 % (36.0-66.0); Platelet Count 164 K/mm3 (150-450); Red Blood Count 4.09 M/mm3 (4.1-5.4); Red Cell Distribution Width 13.7 % (11.5-14.0); White Blood Count 6.7 K/mm3 (4.0-10.5)
[2019-12-04 14:13] LABS: Appearance CLEAR (CLEAR); Bilirubin NEGATIVE (NEGATIVE); Blood MODERATE Ery/ul (0-5); Glucose NEGATIVE (NEGATIVE); Ketones NEGATIVE (NEGATIVE); Leukocyte Esterase NEGATIVE (NEGATIVE); Nitrite NEGATIVE (NEGATIVE); Protein,Urine Dip NEGATIVE (Negative); Urobilinogen NEGATIVE mg/dL (0-1)
[2019-12-04 14:21] LABS: INFLUENZA A NEGATIVE (NEGATIVE); INFLUENZA B NEGATIVE (NEGATIVE); RESPIRATORY SYNCTIAL VIRUS NEGATIVE (Negative)
[2019-12-04] MEDS ORDERED: Sodium Chloride 0.9% 1000 ML 1,000 ML IV STA (14:32)
[2019-12-04] MEDS ORDERED: Azactam 1 GM/100 ML D5W 1 GM/100 ML IVPB IV ONE (14:35)
[2019-12-04] MEDS ORDERED: Zithromax 500 MG/ 250 ML NaCl Premix 500 MG/250 ML IVPB IV STA (14:36)
--- NOTE | 2019-12-04 14:47 | ERPHSYRPT ---
- History of Present Illness Time Seen by Provider: 12/04/19 12:41 Source: patient Exam Limitations: no limitations Patient Subjective Stated Complaint: Pt states "I feel bad. I have a fever and am weak. My grandson tested positive for the virus and my other one is waiting for a result." Triage Nursing Assessment: Pt presented alert and oriented X 3, skin pwd. pt ambutes slowly with a cane. Pt slightly tachypneic. Pt warm to touch. Pt in no apparant respiratory distress. pt resting comfortably on cot. Physician History: 79 years old female with history of hypertension, hyperlipidemia presented in the ER with chief complaint of generalized body aches, low-grade fever with chills and generalized weakness/fatigue gradual onset since yesterday with progressive worsening. Patient reports she feels weak all over and ambulation makes it related worse and has tendency to fall although she did not have an actual fall. She has chronic cough which is not any worse than usual. Denies any chest pain palpitations or shortness of breath. No abdominal pain nausea or vomiting. Patient reports having grandson positive for COVID-19 and she has been tested outpatient yesterday but is still pending. 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 Associated Symptoms: cough, muscle aches, weakness, No abdominal pain, No chest pain, No confusion, No diaphoresis, No nausea/vomiting, No shortness of breath, No sore throat, No stiff neck, No syncope Allergies/Adverse Reactions: ciprofloxacin [From Cipro] Allergy (Mild, Verified 09/17/18 03:00) Rash donepezil Allergy (Mild, Verified 09/17/18 03:00) Nausea duloxetine [From Cymbalta] Allergy (Mild, Verified 09/17/18 03:00) Rash gabapentin Allergy (Mild, Verified 09/17/18 03:00) Rash Penicillins Allergy (Mild, Verified 09/17/18 03:00) rashes Sulfa (Sulfonamide Antibiotics) Allergy (Mild, Verified 12/04/19 13:08) Hives cortisone [Cortisone] Allergy (Unknown, Verified 12/04/19 13:08) omeprazole Allergy (Unknown, Verified 12/04/19 13:08) Home Medications: Aspirin EC 81 mg [Ecotrin 81 mg] 81 mg PO DAILY 10/15/13 [History] Isosorbide Mononitrate 30 mg [Imdur 30 MG] 30 mg PO DAILY 02/02/13 [History] Spironolactone 25 mg [Aldactone 25 MG] 50 mg PO BID 02/02/13 [History] Acyclovir 200 mg Cap [Zovirax 200 mg ] 200 mg PO BID PRN 08/25/18 [History] Allopurinol 100 mg [Zyloprim 100 mg] 100 mg PO DAILY 08/25/18 [History] Cannabidiol (Cbd) [Epidiolex] 100 ml PO BID 08/25/18 [History] Carvedilol 3.125 mg [Coreg 3.125 MG] 3.125 mg PO BID 08/25/18 [History] Ergocalciferol (Vitamin D2) [Vitamin D2] 50,000 unit PO WEEKLY 08/25/18 [History] Memantine HCl 5 mg PO BID 08/25/18 [History] Multivitamin [Multivitamins] 1 each PO DAILY 08/25/18 [History] Oxybutynin Chloride 5 mg [Ditropan 5 MG] 5 mg PO BID 08/25/18 [History] Rosuvastatin Calcium 5 mg PO DAILY 08/25/18 [History] Mirabegron [Myrbetriq] 25 mg PO DAILY 09/17/18 [History] Hx Tetanus, Diphtheria Vaccination/Date Given: Yes Hx Influenza Vaccination/Date Given: Yes Hx Pneumococcal Vaccination/Date Given: Yes Immunizations Up to Date: Yes Travel Risk - International Travel Have you traveled outside of the country in past 3 weeks: No - Coronavirus Screening Close contact with a COVID-19 positive Pt in past 14-21 Days: Yes - Review of Systems Constitutional: Fever, Chills, Fatigue, Weakness Eyes: No Symptoms Ears, Nose, & Throat: No Symptoms Respiratory: Cough Cardiac: No Symptoms Abdominal/Gastrointestinal: No Symptoms Genitourinary Symptoms: No Symptoms Musculoskeletal: Myalgias Neurological: No Symptoms Psychological: No Symptoms Endocrine: No Symptoms Hematologic/Lymphatic: No Symptoms Immunological/Allergic: No Symptoms - Past Medical History Pertinent Past Medical History: Yes Neurological History: Migraines ENT History: Cataracts Cardiac History: Congestive Heart Failure, High Cholesterol, Hypertension Respiratory History: CHF Endocrine Medical History: No Pertinent History Musculoskeletal History: Arthritis, Osteoarthritis GI Medical History: Diverticulosis, GERD, Polyps History: Renal Disease Psycho-Social History: Anxiety Female Reproductive Disorders: Abnormal Uterine Bleeding 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 - Past Surgical History Past Surgical History: Yes Neuro Surgical History: No Pertinent History Cardiac: Cardiac Catheterization, Internal Defibrillator, Pacemaker Respiratory: No Pertinent History Gastrointestinal: Cholecystectomy Genitourinary: Other Musculoskeletal: Other Female Surgical History: Hysterectomy Other Surgical History: right knee Arthoscopy - Social History Smoking Status: Never smoker Exposure to second hand smoke: No Drug Use: none Patient Lives Alone: No - Nursing Vital Signs Nursing Vital Signs: Initial Vital Signs Temperature 100.8 F 12/04/19 12:15 Pulse Rate 72 12/04/19 12:15 Respiratory Rate 22 12/04/19 12:15 Blood Pressure 135/78 12/04/19 12:15 O2 Sat by Pulse Oximetry 94 L 12/04/19 12:15 Pain Scale Pain Intensity 0 - Physical Exam General Appearance: no apparent distress, alert Eye Exam: PERRL/EOMI, eyes nml inspection ENT Exam: normal ENT inspection, hearing grossly normal, pharyngeal erythema Neck Exam: normal inspection, supple, full range of motion Respiratory Exam: normal breath sounds, chest non-tender, lungs clear Cardiovascular/Chest Exam: normal heart sounds, regular rate/rhythm Gastrointestinal/Abdominal Exam: soft, non tender, no distention Extremity Exam: non-tender, normal range of motion Neurologic Exam: alert, oriented x 3, cooperative, 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 nml as tested, normal mood/affect Skin Exam: normal color SpO2 Interpretation: normal SpO2: 94 O2 Delivery: Room Air - Course Nursing assessment & vital signs reviewed: Yes Ordered Tests: Active Orders 24 hr Category Date Time Status IV Insertion STAT Care 12/04/19 12:42 Active CHEST 1 VIEW (PORTABLE) Stat Exams 12/04/19 12:42 Taken BLOOD CULTURE Stat Lab 12/04/19 13:20 Received CBC W DIFF Stat Lab 12/04/19 13:20 Completed CMP Stat Lab 12/04/19 13:20 Completed Lactic Acid Stat Lab 12/04/19 12:42 Completed MAGNESIUM Stat Lab 12/04/19 13:20 Completed UA W/RFX UR CULTURE Stat Lab 12/04/19 13:31 Completed Medication Summary Generic Name Dose Route Start Last Admin Trade Name Freq PRN Reason Stop Dose Admin Sodium Chloride 1,000 mls @ 499 mls/hr 12/04/19 14:32 Sodium Chloride 0.9% 1000 Ml IV 12/04/19 16:32 .Q2H1M STA Aztreonam 1 gm in 100 mls @ 200 mls/hr 12/04/19 14:35 Azactam 1 Gm/100 Ml D5w IV 12/04/19 15:04 STAT ONE Azithromycin 500 mg in 250 mls @ 250 mls/hr 12/04/19 14:36 Zithromax 500 Mg/ 250 Ml Nacl Premix IV 12/04/19 15:35 STAT STA Discontinued Medications Generic Name Dose Route Start Last Admin Trade Name Freq PRN Reason Stop Dose Admin Acetaminophen 975 mg 12/04/19 12:43 12/04/19 12:54 Tylenol 325 Mg PO 12/04/19 12:44 975 mg STAT STA Administration Acetaminophen Confirm 12/04/19 12:52 Tylenol 325 Mg Administered 12/04/19 12:53 Dose 975 mg .ROUTE .STK-MED ONE Lab/Rad Data: Laboratory Result Diagrams 12/04/19 13:20 12/04/19 13:20 Laboratory Results 12/04/19 12/04/19 12/04/19 Range/Units 13:31 13:31 13:20 WBC (4.0-10.5) K/mm3 RBC (4.1-5.4) M/mm3 Hgb (12.0-16.0) gm/dl Hct (35-47) % MCV (78-100) fl MCH (26-32) pg MCHC (32-36) g/dl RDW (11.5-14.0) % Plt Count (150-450) K/mm3 MPV (7.5-11.0) fl Gran % (36.0-66.0) % Eos # (Auto) (0-0.5) Absolute Lymphs (auto) (1.0-4.6) Absolute Monos (auto) (0.0-1.3) Lymphocytes % (24.0-44.0) % Monocytes % (0.0-12.0) % Eosinophils % (0.00-5.0) % Basophils % (0.0-0.4) % Absolute Granulocytes (1.4-6.9) Basophils # (0-0.4) Sodium 126 L (137-145) mmol/L Potassium 4.1 (3.5-5.1) mmol/L Chloride 92 L (98-107) mmol/L Carbon Dioxide 23 (22-30) mmol/L Anion Gap 15.5 H (5-15) MEQ/L BUN 16 (7-17) mg/dL Creatinine 1.04 (0.52-1.04) mg/dL Estimated GFR 54.3 ML/MIN Glucose 118 H (74-106) mg/dL Lactic Acid (0.4-2.0) Calcium 9.4 (8.4-10.2) mg/dL Magnesium 2.0 (1.6-2.3) mg/dL Total Bilirubin 0.70 (0.2-1.3) mg/dL AST 69 H (14-36) U/L ALT 45 H (0-35) U/L Alkaline Phosphatase 85 (38-126) U/L Serum Total Protein 7.6 (6.3-8.2) g/dL Albumin 4.3 (3.5-5.0) g/dL Urine Color YELLOW (YELLOW) Urine Appearance CLEAR (CLEAR) Urine pH 6.0 (5-6) Ur Specific [place] 1.010 (1.005-1.025) Urine Protein NEGATIVE (Negative) Urine Ketones NEGATIVE (NEGATIVE) Urine Blood MODERATE (0-5) Joao/ul Urine Nitrite NEGATIVE (NEGATIVE) Urine Bilirubin NEGATIVE (NEGATIVE) Urine Urobilinogen NEGATIVE (0-1) mg/dL Ur Leukocyte Esterase NEGATIVE (NEGATIVE) Urine WBC (Auto) NONE (0-5) /HPF Urine RBC (Auto) 3-5 (0-2) /HPF U Epithel Cells (Auto) NONE (FEW) /HPF Urine Culture Reflexed NO (NO) Urine Glucose NEGATIVE (NEGATIVE) mg/dL Influenza Type A Ag NEGATIVE (NEGATIVE) Influenza Type B Ag NEGATIVE (NEGATIVE) RSV (PCR) NEGATIVE (Negative) 12/04/19 12/04/19 Range/Units 13:20 12:42 WBC 6.7 (4.0-10.5) K/mm3 RBC 4.09 L (4.1-5.4) M/mm3 Hgb 13.2 (12.0-16.0) gm/dl Hct 38.9 (35-47) % MCV 95.1 (78-100) fl MCH 32.3 H (26-32) pg MCHC 33.9 (32-36) g/dl RDW 13.7 (11.5-14.0) % Plt Count 164 (150-450) K/mm3 MPV 10.5 (7.5-11.0) fl Gran % 56.4 (36.0-66.0) % Eos # (Auto) 0.04 (0-0.5) Absolute Lymphs (auto) 2.03 (1.0-4.6) Absolute Monos (auto) 0.84 (0.0-1.3) Lymphocytes % 30.2 (24.0-44.0) % Monocytes % 12.5 H (0.0-12.0) % Eosinophils % 0.6 (0.00-5.0) % Basophils % 0.3 (0.0-0.4) % Absolute Granulocytes 3.80 (1.4-6.9) Basophils # 0.02 (0-0.4) Sodium (137-145) mmol/L Potassium (3.5-5.1) mmol/L Chloride (98-107) mmol/L Carbon Dioxide (22-30) mmol/L Anion Gap (5-15) MEQ/L BUN (7-17) mg/dL Creatinine (0.52-1.04) mg/dL Estimated GFR ML/MIN Glucose (74-106) mg/dL Lactic Acid 1.1 (0.4-2.0) Calcium (8.4-10.2) mg/dL Magnesium (1.6-2.3) mg/dL Total Bilirubin (0.2-1.3) mg/dL AST (14-36) U/L ALT (0-35) U/L Alkaline Phosphatase (38-126) U/L Serum Total Protein (6.3-8.2) g/dL Albumin (3.5-5.0) g/dL Urine Color (YELLOW) Urine Appearance (CLEAR) Urine pH (5-6) Ur Specific [place] (1.005-1.025) Urine Protein (Negative) Urine Ketones (NEGATIVE) Urine Blood (0-5) Joao/ul Urine Nitrite (NEGATIVE) Urine Bilirubin (NEGATIVE) Urine Urobilinogen (0-1) mg/dL Ur Leukocyte Esterase (NEGATIVE) Urine WBC (Auto) (0-5) /HPF Urine RBC (Auto) (0-2) /HPF U Epithel Cells (Auto) (FEW) /HPF Urine Culture Reflexed (NO) Urine Glucose (NEGATIVE) mg/dL Influenza Type A Ag (NEGATIVE) Influenza Type B Ag (NEGATIVE) RSV (PCR) (Negative) - Progress Progress: improved, re-examined Progress Note: 12/04/19 14:45 79 years old is evaluated for generalized weakness fatigue with body aches and fever since yesterday. She had a fever of 100.6 in the ER which improved with Tylenol. She has normal white count, chemistry profile showed hypo-natremia and mildly elevated transaminases. Chest x-ray did not show any focal consolidat ions. She is given a small bolus of fluid and will continue with maintenance. I have all ready given her a dose of antibiotics. Discussed with Dr. Mojica and patient is being admitted to COVID-19 floor. Counseled pt/family regarding: lab results, diagnosis, rad results - Departure Departure Disposition: Observation Clinical Impression: Febrile illness, acute, Suspected COVID-19 virus infection, Hyponatremia, Generalized weakness Condition: Stable Critical Care Time: No Referrals: JAZZY RICHTER MD [Primary Care Provider] -
[2019-12-04] MEDS ORDERED: Sodium Chloride 0.9% 1000 ML 1,000 ML ONE (14:58)
[2019-12-04] MEDS ORDERED: Zithromax 500 MG/ 250 ML NaCl Premix 500 MG/250 ML IVPB IV ONE (14:58)
[2019-12-04] MEDS ORDERED: Sodium Chloride 0.9% W/ 20 mEq KCl/LITER 1,000 ML IV SCH (15:59)
[2019-12-04] MEDS ORDERED: DUONEB 0.5-3 MG/3 ml Neb IH PRN (15:59)
[2019-12-04] MEDS ORDERED: Zofran 4 MG/2 ML VIAL IV PRN (15:59)
[2019-12-04] MEDS ORDERED: TYLENOL 325 MG PO PRN (15:59)
--- NOTE | 2019-12-04 17:17 | XRAY ---
Indication: Fever and weakness. Suspect Covid 19. Comparison: August 25, 2018. Portable chest less inflated with left AICD partially obscuring left lung base. Remaining lungs clear. Heart is not enlarged. Bony thorax intact again with mild degenerative changes. Impression: Nonacute chest with chronic features.
[2019-12-04] MEDS ORDERED: D5w 100ML Mini Bag 100 ML 100 ML IV ONE (20:48)
[2019-12-04] MEDS ORDERED: AZACTAM 1 GM ONE (20:49)
[2019-12-04] MEDS: Aldactone 25 MG PO SCH (21:47)
[2019-12-04] MEDS: Namenda 5 MG PO SCH (21:48)
[2019-12-04] MEDS: Azactam 1 GM/100 ML D5W 1 GM/100 ML IVPB IV SCH (21:48)
[2019-12-04] MEDS: ZOVIRAX 200 MG PO SCH (21:49)
[2019-12-04] MEDS: Pepcid 20 MG VIAL IV SCH (21:49)
[2019-12-04] MEDS ORDERED: Zocor 10MG PO SCH (22:00)
[2019-12-04] MEDS ORDERED: Coreg 3.125 MG PO SCH (22:00)
[2019-12-05 05:46] LABS: Absolute Neutrophil Ct (ANC) 2.59 (1.4-6.9); BASOPHIL % 0.2 % (0.0-0.4); Basophil (Absolute #) 0.01 (0-0.4); Eosinophil % 0.8 % (0.00-5.0); Eosinophil (Absolute #) 0.04 (0-0.5); Hematocrit 38.2 % (35-47); Hemoglobin 12.7 gm/dl (12.0-16.0); Lymphocyte (Absolute #) 1.61 (1.0-4.6); Mean Cell Volume 96.5 fl (78-100); Mean Corpuscular Hemoglobin 32.1 pg (26-32); Mean Corpuscular Hgb Concent. 33.2 g/dl (32-36); Mean Platelet Volume 10.1 fl (7.5-11.0); Monocyte (Absolute #) 0.78 (0.0-1.3); Monocytes % 15.5 % (0.0-12.0); Neutrophil % 51.5 % (36.0-66.0); Platelet Count 143 K/mm3 (150-450); Red Blood Count 3.96 M/mm3 (4.1-5.4); Red Cell Distribution Width 13.7 % (11.5-14.0)
[2019-12-05] MEDS: Azactam 1 GM/100 ML D5W 1 GM/100 ML IVPB IV SCH (05:53)
[2019-12-05 06:09] LABS: ALBUMIN 3.8 g/dL (3.5-5.0); ANION GAP 12.3 MEQ/L (5-15); BILIRUBIN,TOTAL 0.4 mg/dL (0.2-1.3); Calcium 8.8 mg/dL (8.4-10.2); Creatinine 1 1.1 mg/dL (0.52-1.04); Potassium 4.2 mmol/L (3.5-5.1); Total Protein 6.7 g/dL (6.3-8.2)
[2019-12-05 07:57] VITALS: BP 131/65
[2019-12-05 08:10] VITALS: O2SAT 90
[2019-12-05] MEDS: ZOVIRAX 200 MG PO SCH (09:46)
[2019-12-05] MEDS: Namenda 5 MG PO SCH (09:46)
[2019-12-05] MEDS: Aldactone 25 MG PO SCH (09:46)
[2019-12-05] MEDS: Pepcid 20 MG VIAL IV SCH (09:47)
[2019-12-05] MEDS ORDERED: NON-FORMULARY ITEM (Multivitamin [Multivitamins] 1 EACH) PO SCH (10:00)
[2019-12-05] MEDS ORDERED: ECOTRIN 81 MG PO SCH (10:00)
[2019-12-05] MEDS ORDERED: THERAGRAN MULTIVITAMIN PO SCH (10:00)
[2019-12-05] MEDS ORDERED: ZYLOPRIM 100 MG PO SCH (10:00)
[2019-12-05] MEDS ORDERED: MYRBETRIQ PO SCH (10:00)
[2019-12-05] MEDS ORDERED: Imdur 30 MG PO SCH (10:00)
[2019-12-05] MEDS ORDERED: Zithromax 500 MG/ 250 ML NaCl Premix 500 MG/250 ML IVPB IV SCH (10:00)
[2019-12-05 10:55] VITALS: PULSE 76
--- NOTE | 2019-12-08 10:43 | SSS ---
DISCHARGE DIAGNOSES: 1) COVID. 2) CONGESTIVE HEART FAILURE. CHIEF COMPLAINT: Achiness, fatigue, exposure to COVID. HISTORY OF PRESENT ILLNESS: The patient is a 79 year old white female with history of congestive heart failure. Today, she has kind of ached all over. She has had no fever. She has numerous members in the family, children, who have COVID who live close by so she has been exposed. She has numerous grandchildren one who had gotten a heart transplant and has been kept away from her and do not have any infection. She felt like she had a fever and felt bad. She had a COVID test done probably now 48 hours ago and we are awaiting results. She was not sick enough that they had to send one of the quick tests. She has no GI symptoms except chronic constipation. No real cough. No high fever, chills or sweats. PAST MEDICAL HISTORY: Hyperlipidemia, coronary artery disease with stent for blockage of the LAD. She has no chest pain but she has had fatigue for years secondary to heart problems. PAST SURGICAL HISTORY: Cataract surgery. Pacemaker placed two years ago. Atrial fibrillation. D&C. Cholecystectomy. Hysterectomy. Right knee arthroscope. MEDICATIONS: ASA 81, Imdur 80, Spironolactone 25, acyclovir 200 b.i.d. PRN fever blisters, Allopurinol 100 q.d., Epidiolex 100 b.i.d., carvedilol 3.125 b.i.d., vitamin D weekly, memantine 5 b.i.d., Ditropan 5 q.d., rosuvastatin 5 q.d., Myrbetriq 25 q.d. ALLERGIES: GABAPENTIN. PENICILLIN. SULFA. CORTISONE. PRILOSEC. TRAVEL HISTORY: None, has not been out of her backyard but has been in contact with grandchildren who have it and apparently great-grandchildren go to school who she is in touch with also. REVIEW OF SYSTEMS: HEENT: Seems to hear and see fairly well. CHEST: Short of breath on exertion. No chest pain. CVS: History of congestive heart failure, coronary artery disease stable. ABDOMEN: No nausea or vomiting. No abdominal pain. EXTREMITIES: The patient can walk but is short of breath on walking. She does not do any housework or cooking anymore. PHYSICAL EXAMINATION: This morning this patient is afebrile 98.8F, pulse 80, respirations 20. Delightful to talk to. She is well oriented and wants to go home. She is a very pleasant lady. HEENT: Pupils equal and reactive to light. Decreased hearing. NECK: Supple without adenopathy. CHEST: Clear. CVS: S4 gallop. ABDOMEN: No tenderness or organomegaly. EXTREMITIES: No edema. LAB DATA AND TESTS: Lab work: Sodium down to 126 secondary to heart failure. CBC is normal, hemoglobin 13, white count 6.7. Chest x-ray no pneumonia. IMPRESSION: The patient was observed overnight due to exposure to COVID. Test pending. Low grade body aches, low grade fever and chilling slightly. She feels much better today and temperature is down. She wants to go home and it is felt that she should go home so she will not be exposed here. She has everybody involved making sure she has food and care in her family. Pulse oxygen levels were normal. PLAN: Discharge on home medications. Return if she gets more short of breath or GI symptoms such as diarrhea. PROGNOSIS: Fair.
[2019-12-21] MEDS ORDERED: VITAMIN D2 PO SCH (08:00)
== END 2019-12-05 12:38 | disposition home or self-care (01) ==
LOC: ED 12:15 → MED SURG 15:52
PROVIDERS: ADMIT Family Medicine; ATTEND Family Medicine
DX: U07.1 COVID-19 (principal); I50.9 Heart failure, unspecified; R53.83 Other fatigue; E78.5 Hyperlipidemia, unspecified; I25.10 Atherosclerotic heart disease of native coronary artery without angina pectoris; Z95.0 Presence of cardiac pacemaker
CPT/HCPCS: 36000; 36415; 71045; 80053; 81001; 83605; 83735; 85025; 87040; 87631; 93268; 94762; 96365; 99285; G0378; J0456; A9270-GY

== ENCOUNTER 2019-12-08 12:40 | Observation (INO) | payer MEDICARE ==
--- NOTE | 2019-12-08 12:44 | ERPHSYRPT ---
- History of Present Illness Time Seen by Provider: 12/08/19 12:44 Historian: patient Exam Limitations: no limitations Physician History: This is a 79-year-old white female who was seen at this facility and admitted for 24 hours on Friday prior to this evaluation today. Patient was having symptoms of fever, vomiting and diarrhea. Her COVID-19 test was negative. Jeornimo nobles has history of chronic shortness of air and it was worse over the last several days. Patient was discharged to home. Her symptoms have not improved or resolved. Patient was told to return to the emergency department for evaluation and management. Patient denies chest pain. She denies significant abdominal pain. Timing/Duration: day(s) (Several) Quality: cramping Abdominal Pain Onset Location: generalized abdomen Severity of Pain-Max: mild Severity of Pain-Current: mild Associated Symptoms: denies symptoms Previous symptoms: same symptoms as today, recently seen, recent hospitalization, recently treated Allergies/Adverse Reactions: ciprofloxacin [From Cipro] Allergy (Mild, Verified 12/08/19 12:58) Rash donepezil Allergy (Mild, Verified 12/08/19 12:58) Nausea duloxetine [From Cymbalta] Allergy (Mild, Verified 12/08/19 12:58) Rash gabapentin Allergy (Mild, Verified 12/08/19 12:58) Rash Penicillins Allergy (Mild, Verified 12/08/19 12:58) rashes Sulfa (Sulfonamide Antibiotics) Allergy (Mild, Verified 12/08/19 12:58) Hives cortisone [Cortisone] Allergy (Unknown, Verified 12/08/19 12:58) omeprazole Allergy (Unknown, Verified 12/08/19 12:58) Home Medications: Aspirin EC 81 mg [Ecotrin 81 mg] 81 mg PO DAILY 02/02/13 [History] Isosorbide Mononitrate 30 mg [Imdur 30 MG] 30 mg PO DAILY 02/02/13 [History] Spironolactone 25 mg [Aldactone 25 MG] 50 mg PO BID 02/02/13 [History] Acyclovir 200 mg Cap [Zovirax 200 mg ] 400 mg PO BID 08/25/18 [History] Allopurinol 100 mg [Zyloprim 100 mg] 100 mg PO DAILY 08/25/18 [History] Carvedilol 3.125 mg [Coreg 3.125 MG] 3.125 mg PO HS 08/25/18 [History] Ergocalciferol (Vitamin D2) [Vitamin D2] 50,000 unit PO UD 08/25/18 [History] Memantine HCl 10 mg PO BID 08/25/18 [History] Multivitamin [Multivitamins] 1 each PO DAILY 08/25/18 [History] Rosuvastatin Calcium 5 mg PO HS 08/25/18 [History] Mirabegron [Myrbetriq] 25 mg PO DAILY 09/17/18 [History] Hx Tetanus, Diphtheria Vaccination/Date Given: Yes Hx Influenza Vaccination/Date Given: Yes Hx Pneumococcal Vaccination/Date Given: Yes Travel Risk - International Travel Have you traveled outside of the country in past 3 weeks: No - Coronavirus Screening Are you exhibiting any of the following symptoms?: Yes Symptoms: Shortness of Breath, Vomiting/Diarrhea Close contact with a COVID-19 positive Pt in past 14-21 Days: No - Review of Systems Constitutional: Fever, Weakness Eyes: No Symptoms Ears, Nose, & Throat: No Symptoms Respiratory: No Symptoms Cardiac: No Symptoms Abdominal/Gastrointestinal: No Symptoms, Nausea, Vomiting, Diarrhea Genitourinary Symptoms: No Symptoms Musculoskeletal: No Symptoms Skin: No Symptoms Neurological: No Symptoms Psychological: No Symptoms Endocrine: No Symptoms Hematologic/Lymphatic: No Symptoms Immunological/Allergic: No Symptoms All Other Systems: Reviewed and Negative - Past Medical History Pertinent Past Medical History: Yes Neurological History: Migraines ENT History: Cataracts Cardiac History: Arrhythmia, Congestive Heart Failure, High Cholesterol, Hypertension Respiratory History: CHF Endocrine Medical History: No Pertinent History Musculoskeletal History: Arthritis, Osteoarthritis GI Medical History: Diverticulosis, GERD, Polyps History: Renal Disease Psycho-Social History: Anxiety Female Reproductive Disorders: Abnormal Uterine Bleeding 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 - Past Surgical History Past Surgical History: Yes Neuro Surgical History: No Pertinent History Cardiac: Cardiac Catheterization, Internal Defibrillator, Pacemaker Respiratory: No Pertinent History Gastrointestinal: Cholecystectomy Genitourinary: Other Musculoskeletal: Other Female Surgical History: Hysterectomy Other Surgical History: right knee Arthoscopy - Social History Smoking Status: Never smoker Exposure to second hand smoke: No Drug Use: none Patient Lives Alone: No - Nursing Vital Signs Nursing Vital Signs: Initial Vital Signs Temperature 98.1 F 12/08/19 12:58 Pulse Rate 76 12/08/19 12:58 Respiratory Rate 18 12/08/19 12:58 Blood Pressure 135/77 12/08/19 12:58 O2 Sat by Pulse Oximetry 94 L 12/08/19 12:58 Pain Scale Pain Intensity 0 - Physical Exam General Appearance: mild distress, alert, anxiety Eye Exam: PERRL/EOMI, eyes nml inspection Ears, Nose, Throat Exam: normal ENT inspection, dry mucous membranes Neck Exam: normal inspection, non-tender, supple, full range of motion Respiratory Exam: normal breath sounds, lungs clear, airway intact, No chest tenderness, No respiratory distress Cardiovascular Exam: regular rate/rhythm, normal heart sounds, normal peripheral pulses Gastrointestinal/Abdomen Exam: soft, normal bowel sounds, No tenderness, No guarding Pelvic Exam: not done Rectal Exam: not done Back Exam: normal inspection, normal range of motion, No CVA tenderness, No vertebral tenderness Extremity Exam: normal inspection, normal range of motion, pelvis stable Neurologic Exam: alert, oriented x 3, cooperative, body line finisher II-XII nml as tested, normal mood/affect, nml cerebellar function, nml station & gait, sensation nml Skin Exam: normal color, warm, dry Lymphatic Exam: No adenopathy SpO2 Interpretation: borderline oxygenation O2 Delivery: Room Air Ordered Tests: Active Orders 24 hr Category Date Time Status IV Insertion STAT Care 12/08/19 13:02 Active CHEST 1 VIEW (PORTABLE) Stat Exams 12/08/19 13:16 Completed AMYLASE Stat Lab 12/08/19 13:20 Completed CBC W DIFF Stat Lab 12/08/19 13:02 Completed CMP Stat Lab 12/08/19 13:20 Completed CULTURE,URINE Stat Lab 12/08/19 13:04 Received LIPASE Stat Lab 12/08/19 13:20 Completed Lactic Acid Stat Lab 12/08/19 13:02 Completed TROPONIN Q3H Lab 12/08/19 13:20 Completed TROPONIN Q3H Lab 12/08/19 16:15 Ordered TROPONIN Q3H Lab 12/08/19 19:15 Ordered TROPONIN Q3H Lab 12/08/19 22:15 Ordered TROPONIN Q3H Lab 12/09/19 01:15 Ordered UA W/RFX UR CULTURE Stat Lab 12/08/19 13:04 Completed Transfer Order Routine Transfer 12/08/19 Ordered Medication Summary Generic Name Dose Route Start Last Admin Trade Name Allen PRN Reason Stop Dose Admin Sodium Chloride 1,000 mls @ 100 mls/hr 12/08/19 13:15 12/08/19 13:12 Sodium Chloride 0.9% 1000 Ml IV 01/07/20 13:14 100 mls/hr .Q10H NAVIN Administration Ceftriaxone Sodium/Dextrose 1 g in 50 mls @ 100 mls/hr 12/08/19 14:17 Rocephin 1 Gm-D5w 50 Ml Bag IV 12/08/19 14:46 STAT STA Discontinued Medications Generic Name Dose Route Start Last Admin Trade Name Allen PRN Reason Stop Dose Admin Famotidine 20 mg 12/08/19 13:02 12/08/19 13:12 Pepcid 20 Mg Vial IV 12/08/19 13:03 20 mg STAT ONE Administration Famotidine Confirm 12/08/19 13:11 Pepcid 20 Mg Vial Administered 12/08/19 13:12 Dose 20 mg IV .STK-MED ONE Ondansetron HCl 4 mg 12/08/19 13:02 12/08/19 13:12 Zofran 4 Mg/2 Ml Vial IV 12/08/19 13:03 4 mg STAT ONE Administration Ondansetron HCl Confirm 12/08/19 13:10 Zofran 4 Mg/2 Ml Vial Administered 12/08/19 13:11 Dose 4 mg .ROUTE .STK-MED ONE Lab/Rad Data: Laboratory Result Diagrams 12/08/19 13:02 12/08/19 13:20 Laboratory Results 12/08/19 12/08/19 12/08/19 Range/Units 13:20 13:20 13:04 WBC (4.0-10.5) K/mm3 RBC (4.1-5.4) M/mm3 Hgb (12.0-16.0) gm/dl Hct (35-47) % MCV (78-100) fl MCH (26-32) pg MCHC (32-36) g/dl RDW (11.5-14.0) % Plt Count (150-450) K/mm3 MPV (7.5-11.0) fl Gran % (36.0-66.0) % Eos # (Auto) (0-0.5) Absolute Lymphs (auto) (1.0-4.6) Absolute Monos (auto) (0.0-1.3) Lymphocytes % (24.0-44.0) % Monocytes % (0.0-12.0) % Eosinophils % (0.00-5.0) % Basophils % (0.0-0.4) % Absolute Granulocytes (1.4-6.9) Basophils # (0-0.4) Sodium 128 L (137-145) mmol/L Potassium 4.6 (3.5-5.1) mmol/L Chloride 96 L (98-107) mmol/L Carbon Dioxide 23 (22-30) mmol/L Anion Gap 14.1 (5-15) MEQ/L BUN 19 H (7-17) mg/dL Creatinine 0.96 (0.52-1.04) mg/dL Estimated GFR 59.6 ML/MIN Glucose 130 H (74-106) mg/dL Lactic Acid (0.4-2.0) Calcium 9.4 (8.4-10.2) mg/dL Total Bilirubin 0.50 (0.2-1.3) mg/dL AST 64 H (14-36) U/L ALT 49 H (0-35) U/L Alkaline Phosphatase 81 (38-126) U/L Troponin I < 0.012 (0.000-0.034) ng/mL Serum Total Protein 7.4 (6.3-8.2) g/dL Albumin 4.2 (3.5-5.0) g/dL Amylase 79 (30-110) U/L Lipase 181 (23-300) U/L Urine Color YELLOW (YELLOW) Urine Appearance SLIGHTLY CLOUDY (CLEAR) Urine pH 6.0 (5-6) Ur Specific [place] 1.016 (1.005-1.025) Urine Protein 30 (Negative) Urine Ketones NEGATIVE (NEGATIVE) Urine Blood SMALL (0-5) Joao/ul Urine Nitrite NEGATIVE (NEGATIVE) Urine Bilirubin NEGATIVE (NEGATIVE) Urine Urobilinogen NEGATIVE (0-1) mg/dL Ur Leukocyte Esterase TRACE (NEGATIVE) Urine WBC (Auto) 26-50 (0-5) /HPF Urine RBC (Auto) 3-5 (0-2) /HPF U Hyaline Cast (Auto) 3-5 (0-2) /LPF U Epithel Cells (Auto) NONE (FEW) /HPF Urine Bacteria (Auto) FEW (NEGATIVE) /HPF Urine Mucus (Auto) SLIGHT (NEGATIVE) /HPF Urine Culture Reflexed YES (NO) Urine Glucose NEGATIVE (NEGATIVE) mg/dL 12/08/19 12/08/19 Range/Units 13:02 13:02 WBC 4.9 (4.0-10.5) K/mm3 RBC 4.17 (4.1-5.4) M/mm3 Hgb 13.3 (12.0-16.0) gm/dl Hct 39.1 (35-47) % MCV 93.8 (78-100) fl MCH 31.9 (26-32) pg MCHC 34.0 (32-36) g/dl RDW 13.4 (11.5-14.0) % Plt Count 146 L (150-450) K/mm3 MPV 10.0 (7.5-11.0) fl Gran % 63.2 (36.0-66.0) % Eos # (Auto) 0.01 (0-0.5) Absolute Lymphs (auto) 1.43 (1.0-4.6) Absolute Monos (auto) 0.37 (0.0-1.3) Lymphocytes % 28.9 (24.0-44.0) % Monocytes % 7.5 (0.0-12.0) % Eosinophils % 0.2 (0.00-5.0) % Basophils % 0.2 (0.0-0.4) % Absolute Granulocytes 3.12 (1.4-6.9) Basophils # 0.01 (0-0.4) Sodium (137-145) mmol/L Potassium (3.5-5.1) mmol/L Chloride (98-107) mmol/L Carbon Dioxide (22-30) mmol/L Anion Gap (5-15) MEQ/L BUN (7-17) mg/dL Creatinine (0.52-1.04) mg/dL Estimated GFR ML/MIN Glucose (74-106) mg/dL Lactic Acid 0.8 (0.4-2.0) Calcium (8.4-10.2) mg/dL Total Bilirubin (0.2-1.3) mg/dL AST (14-36) U/L ALT (0-35) U/L Alkaline Phosphatase (38-126) U/L Troponin I (0.000-0.034) ng/mL Serum Total Protein (6.3-8.2) g/dL Albumin (3.5-5.0) g/dL Amylase (30-110) U/L Lipase (23-300) U/L Urine Color (YELLOW) Urine Appearance (CLEAR) Urine pH (5-6) Ur Specific [place] (1.005-1.025) Urine Protein (Negative) Urine Ketones (NEGATIVE) Urine Blood (0-5) Joao/ul Urine Nitrite (NEGATIVE) Urine Bilirubin (NEGATIVE) Urine Urobilinogen (0-1) mg/dL Ur Leukocyte Esterase (NEGATIVE) Urine WBC (Auto) (0-5) /HPF Urine RBC (Auto) (0-2) /HPF U Hyaline Cast (Auto) (0-2) /LPF U Epithel Cells (Auto) (FEW) /HPF Urine Bacteria (Auto) (NEGATIVE) /HPF Urine Mucus (Auto) (NEGATIVE) /HPF Urine Culture Reflexed (NO) Urine Glucose (NEGATIVE) mg/dL - Departure Departure Disposition: In-patient Admission Clinical Impression: UTI (urinary tract infection), Weakness Condition: Stable Critical Care Time: No Referrals: JAZZY RICHTER MD [Primary Care Provider] -
[2019-12-08] MEDS ORDERED: Pepcid 20 MG VIAL IV ONE ×2 (13:02→13:11)
[2019-12-08] MEDS ORDERED: Zofran 4 MG/2 ML VIAL IV ONE (13:02)
[2019-12-08] MEDS ORDERED: Zofran 4 MG/2 ML VIAL ONE (13:10)
[2019-12-08] MEDS ORDERED: Sodium Chloride 0.9% 1000 ML 1,000 ML IV SCH (13:15)
[2019-12-08 13:20] LABS: Absolute Neutrophil Ct (ANC) 3.12 (1.4-6.9); BASOPHIL % 0.2 % (0.0-0.4); Basophil (Absolute #) 0.01 (0-0.4); Eosinophil % 0.2 % (0.00-5.0); Eosinophil (Absolute #) 0.01 (0-0.5); Hematocrit 39.1 % (35-47); Hemoglobin 13.3 gm/dl (12.0-16.0); Lymphocyte (Absolute #) 1.43 (1.0-4.6); Lymphocytes % 28.9 % (24.0-44.0); Mean Cell Volume 93.8 fl (78-100); Mean Corpuscular Hemoglobin 31.9 pg (26-32); Monocyte (Absolute #) 0.37 (0.0-1.3); Monocytes % 7.5 % (0.0-12.0); Neutrophil % 63.2 % (36.0-66.0); Platelet Count 146 K/mm3 (150-450); Red Blood Count 4.17 M/mm3 (4.1-5.4); Red Cell Distribution Width 13.4 % (11.5-14.0); White Blood Count 4.9 K/mm3 (4.0-10.5)
[2019-12-08 13:32] LABS: ALBUMIN 4.2 g/dL (3.5-5.0); ANION GAP 14.1 MEQ/L (5-15); BILIRUBIN,TOTAL 0.5 mg/dL (0.2-1.3); Calcium 9.4 mg/dL (8.4-10.2); Creatinine 1 0.96 mg/dL (0.52-1.04); Potassium 4.6 mmol/L (3.5-5.1); Total Protein 7.4 g/dL (6.3-8.2)
[2019-12-08 13:47] LABS: Appearance SLIGHTLY CLOUDY (CLEAR); Bacteria FEW /HPF (NEGATIVE); Bilirubin NEGATIVE (NEGATIVE); Blood SMALL Ery/ul (0-5); Glucose NEGATIVE (NEGATIVE); Ketones NEGATIVE (NEGATIVE); Leukocyte Esterase TRACE (NEGATIVE); Mucus SLIGHT /HPF (NEGATIVE); Nitrite NEGATIVE (NEGATIVE); Protein,Urine Dip 30 (Negative); Specific Gravity 1.016 (1.005-1.025); Urobilinogen NEGATIVE mg/dL (0-1); WBC 26-50 /HPF (0-5)
--- NOTE | 2019-12-08 13:59 | XRAY ---
Indication: Short of breath and weakness for months. Comparison: December 04, 2019. Portable chest continues to demonstrate normal heart and lungs with left-sided AICD. No new or acute cardiopulmonary abnormalities.
[2019-12-08] MEDS ORDERED: ROCEPHIN 1 Gm-D5w 50 ml Bag** 1 G/50 ML IVPB IV STA (14:17)
[2019-12-08] MEDS ORDERED: ROCEPHIN 1 Gm-D5w 50 ml Bag** 1 G/50 ML IVPB IV ONE (14:21)
[2019-12-08] MEDS ORDERED: Zofran 4 MG/2 ML VIAL IV PRN (15:09)
[2019-12-08] MEDS ORDERED: Aldactone 25 MG PO SCH (22:00)
[2019-12-08] MEDS: Zocor 10MG PO SCH (22:35)
[2019-12-08] MEDS: Coreg 3.125 MG PO SCH (22:35)
[2019-12-08] MEDS: Namenda 5 MG PO SCH (22:36)
[2019-12-08] MEDS: ZOVIRAX 200 MG PO SCH (22:39)
[2019-12-08] MEDS: TYLENOL 325 MG PO PRN (22:40)
[2019-12-09] MEDS: Sodium Chloride 0.9% 1000 ML 1,000 ML IV SCH ×2 (00:06→13:35)
[2019-12-09 05:18] LABS: Absolute Neutrophil Ct (ANC) 1.56 (1.4-6.9); BASOPHIL % 0.3 % (0.0-0.4); Basophil (Absolute #) 0.01 (0-0.4); Eosinophil % 0.8 % (0.00-5.0); Eosinophil (Absolute #) 0.03 (0-0.5); Hemoglobin 12.2 gm/dl (12.0-16.0); Lymphocytes % 44.6 % (24.0-44.0); Mean Cell Volume 95.5 fl (78-100); Mean Corpuscular Hemoglobin 32.4 pg (26-32); Mean Corpuscular Hgb Concent. 33.9 g/dl (32-36); Mean Platelet Volume 10.6 fl (7.5-11.0); Monocyte (Absolute #) 0.39 (0.0-1.3); Monocytes % 10.9 % (0.0-12.0); Neutrophil % 43.4 % (36.0-66.0); Platelet Count 126 K/mm3 (150-450); Red Blood Count 3.77 M/mm3 (4.1-5.4); Red Cell Distribution Width 13.6 % (11.5-14.0); White Blood Count 3.6 K/mm3 (4.0-10.5)
[2019-12-09 05:33] LABS: ALBUMIN 3.5 g/dL (3.5-5.0); ANION GAP 9.8 MEQ/L (5-15); BILIRUBIN,TOTAL 0.5 mg/dL (0.2-1.3); Calcium 8.8 mg/dL (8.4-10.2); Creatinine 1 0.99 mg/dL (0.52-1.04); Potassium 4.5 mmol/L (3.5-5.1); Total Protein 6.5 g/dL (6.3-8.2)
[2019-12-09] MEDS: TYLENOL 325 MG PO PRN (07:20)
[2019-12-09] MEDS ORDERED: TORAdol 30 mg Injection IV ONE (07:24)
[2019-12-09] MEDS: ROCEPHIN 1 Gm-D5w 50 ml Bag** 1 G/50 ML IVPB IV SCH (09:31)
[2019-12-09] MEDS: Namenda 5 MG PO SCH ×2 (09:31→21:26)
[2019-12-09] MEDS: Aldactone 25 MG PO SCH ×2 (09:37→21:25)
[2019-12-09] MEDS: THERAGRAN MULTIVITAMIN PO SCH (09:37)
[2019-12-09] MEDS: Imdur 30 MG PO SCH (09:37)
[2019-12-09] MEDS: ECOTRIN 81 MG PO SCH (09:37)
[2019-12-09] MEDS: ZYLOPRIM 100 MG PO SCH (09:37)
[2019-12-09] MEDS: ZOVIRAX 200 MG PO SCH ×2 (09:37→21:27)
[2019-12-09] MEDS ORDERED: NON-FORMULARY ITEM (Multivitamin [Multivitamins] 1 EACH) PO SCH (10:00)
[2019-12-09] MEDS: MYRBETRIQ PO SCH (10:42)
--- NOTE | 2019-12-09 17:10 | PCM.HP ---
History of Present Illness - Chief Complaint Chief Complaint: UTI, WEAKNESS for 3 days History of Present Illness: is a 79-year-old white female who was seen at this facility and admitted for 24 hours on Friday prior to this evaluation today. Patient was having symptoms of fever, vomiting and diarrhea. Her COVID-19 test was negative. Patient has history of chronic shortness of air and it was worse over the last several days. Patient was discharged to home. Her symptoms have not improved or resolved. Patient was told to return to the emergency department for evaluation and management. Patient denies chest pain. She denies significant abdominal pain. - Review of Systems Constitutional: Weakness, No Fever, No Chills Eyes: No Symptoms Ears, Nose, & Throat: No Symptoms Respiratory: No Cough, No Short Of Breath Cardiac: No Chest Pain, No Edema, No Syncope Abdominal/Gastrointestinal: No Abdominal Pain, No Nausea, No Vomiting, No Diarrhea Genitourinary Symptoms: No Dysuria Musculoskeletal: No Back Pain, No Neck Pain Skin: No Rash Neurological: No Dizziness, No Focal Weakness, No Sensory Changes Psychological: No Symptoms Endocrine: No Symptoms Hematologic/Lymphatic: No Symptoms Immunological/Allergic: No Symptoms Medications & Allergies Home Medications: Home Medication List Aspirin EC 81 mg [Ecotrin 81 mg] 81 mg PO DAILY 02/02/13 [History Confirmed 12/08/19] Isosorbide Mononitrate 30 mg [Imdur 30 MG] 30 mg PO DAILY 02/02/13 [History Confirmed 12/08/19] Spironolactone 25 mg [Aldactone 25 MG] 50 mg PO BID 02/02/13 [History Confirmed 12/08/19] Acyclovir 200 mg Cap [Zovirax 200 mg ] 400 mg PO BID 08/25/18 [History Confirmed 12/08/19] Allopurinol 100 mg [Zyloprim 100 mg] 100 mg PO DAILY 08/25/18 [History Confirmed 12/08/19] Carvedilol 3.125 mg [Coreg 3.125 MG] 3.125 mg PO HS 08/25/18 [History Confirmed 12/08/19] Ergocalciferol (Vitamin D2) [Vitamin D2] 50,000 unit PO UD 08/25/18 [History Confirmed 12/08/19] Memantine HCl 10 mg PO BID 08/25/18 [History Confirmed 12/08/19] Multivitamin [Multivitamins] 1 each PO DAILY 08/25/18 [History Confirmed 12/08/19] Rosuvastatin Calcium 5 mg PO HS 08/25/18 [History Confirmed 12/08/19] Mirabegron [Myrbetriq] 25 mg PO DAILY 09/17/18 [History Confirmed 12/08/19] Allergies/Adverse Reactions: Allergies Allergy/AdvReac Type Severity Reaction Status Date / Time ciprofloxacin [From Cipro] Allergy Mild Rash Verified 12/08/19 12:58 donepezil Allergy Mild Nausea Verified 12/08/19 12:58 duloxetine [From Cymbalta] Allergy Mild Rash Verified 12/08/19 12:58 gabapentin Allergy Mild Rash Verified 12/08/19 12:58 Penicillins Allergy Mild rashes Verified 12/08/19 12:58 Sulfa (Sulfonamide Allergy Mild Hives Verified 12/08/19 12:58 Antibiotics) cortisone [Cortisone] Allergy Unknown Verified 12/08/19 12:58 omeprazole Allergy Unknown Verified 12/08/19 12:58 - Past Medical History Past Medical History: Yes Neurological History: Migraines ENT History: Cataracts Cardiac History: Arrhythmia, Congestive Heart Failure, High Cholesterol, Hypertension Respiratory History: CHF Endocrine Medical History: No Pertinent History Musculoskelatal History: Arthritis, Osteoarthritis GI Medical History: Diverticulosis, GERD, Polyps History: Renal Disease Pyscho-Social History: Anxiety Reproductive Disorders: Abnormal Uterine Bleeding Comment: 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 - Female History Are you now?: No - Past Surgical History Past Surgical History: Yes Neuro Surgical History: No Pertinent History Cardiac History: Cardiac Catheterization, Internal Defibrillator, Pacemaker Respiratory Surgery: No Pertinent History GI Surgical History: Cholecystectomy Genitourinary Surgical Hx: Other Musculskeletal Surgical Hx: Other Female Surgical History: Hysterectomy Other Surgical History: right knee Arthoscopy - Social History Smoking Status: Never smoker Exposure to second hand smoke: No Alcohol: None Drug Use: none - Physical Exam Vital Signs: Vital Signs - 24 hr Temp Pulse Resp BP Pulse Ox 12/09/19 13:00 104/57 12/09/19 12:00 98.5 F 63 20 85/49 93 L 12/09/19 07:46 97.9 F 71 18 117/57 95 12/09/19 03:51 98.6 F 86 18 123/61 94 L 12/08/19 23:35 98.6 F 76 20 135/65 95 12/08/19 20:00 98.6 F 72 18 132/65 94 L General Appearance: no apparent distress, alert Neurologic Exam: alert, oriented x 3, cooperative, normal mood/affect, nml cerebellar function, nml station & gait, sensation nml, No motor deficits Eye Exam: PERRL/EOMI, eyes nml inspection Ears, Nose, Throat Exam: normal ENT inspection, TMs normal, pharynx normal, moist mucous membranes Neck Exam: normal inspection, non-tender, supple, full range of motion Respiratory Exam: normal breath sounds, lungs clear, No respiratory distress Cardiovascular Exam: regular rate/rhythm, normal heart sounds, normal peripheral pulses Gastrointestinal/Abdomen Exam: soft, normal bowel sounds, No tenderness, No mass Back Exam: normal inspection, normal range of motion, No CVA tenderness, No vertebral tenderness Extremity Exam: normal inspection, normal range of motion, pelvis stable Skin Exam: normal color, warm, dry, No rash Lymphatic Exam: No adenopathy Results - Labs Lab/Micro Results: Lab Results-Last 24 Hours 12/08/19 12/08/19 12/09/19 Range/Units 19:15 21:40 01:15 WBC (4.0-10.5) K/mm3 RBC (4.1-5.4) M/mm3 Hgb (12.0-16.0) gm/dl Hct (35-47) % MCV (78-100) fl MCH (26-32) pg MCHC (32-36) g/dl RDW (11.5-14.0) % Plt Count (150-450) K/mm3 MPV (7.5-11.0) fl Gran % (36.0-66.0) % Eos # (Auto) (0-0.5) Absolute Lymphs (auto) (1.0-4.6) Absolute Monos (auto) (0.0-1.3) Lymphocytes % (24.0-44.0) % Monocytes % (0.0-12.0) % Eosinophils % (0.00-5.0) % Basophils % (0.0-0.4) % Absolute Granulocytes (1.4-6.9) Basophils # (0-0.4) Sodium (137-145) mmol/L Potassium (3.5-5.1) mmol/L Chloride (98-107) mmol/L Carbon Dioxide (22-30) mmol/L Anion Gap (5-15) MEQ/L BUN (7-17) mg/dL Creatinine (0.52-1.04) mg/dL Estimated GFR ML/MIN Glucose (74-106) mg/dL Calcium (8.4-10.2) mg/dL Total Bilirubin (0.2-1.3) mg/dL AST (14-36) U/L ALT (0-35) U/L Alkaline Phosphatase (38-126) U/L Troponin I < 0.012 0.014 0.017 (0.000-0.034) ng/mL NT-Pro-B Natriuret Pep (0-1800) pg/mL Serum Total Protein (6.3-8.2) g/dL Albumin (3.5-5.0) g/dL 12/09/19 12/09/19 12/09/19 Range/Units 04:30 04:32 04:32 WBC 3.6 L (4.0-10.5) K/mm3 RBC 3.77 L (4.1-5.4) M/mm3 Hgb 12.2 (12.0-16.0) gm/dl Hct 36.0 (35-47) % MCV 95.5 (78-100) fl MCH 32.4 H (26-32) pg MCHC 33.9 (32-36) g/dl RDW 13.6 (11.5-14.0) % Plt Count 126 L (150-450) K/mm3 MPV 10.6 (7.5-11.0) fl Gran % 43.4 (36.0-66.0) % Eos # (Auto) 0.03 (0-0.5) Absolute Lymphs (auto) 1.60 (1.0-4.6) Absolute Monos (auto) 0.39 (0.0-1.3) Lymphocytes % 44.6 H (24.0-44.0) % Monocytes % 10.9 (0.0-12.0) % Eosinophils % 0.8 (0.00-5.0) % Basophils % 0.3 (0.0-0.4) % Absolute Granulocytes 1.56 (1.4-6.9) Basophils # 0.01 (0-0.4) Sodium 131 L (137-145) mmol/L Potassium 4.5 (3.5-5.1) mmol/L Chloride 99 (98-107) mmol/L Carbon Dioxide 27 (22-30) mmol/L Anion Gap 9.8 (5-15) MEQ/L BUN 16 (7-17) mg/dL Creatinine 0.99 (0.52-1.04) mg/dL Estimated GFR 57.5 ML/MIN Glucose 98 (74-106) mg/dL Calcium 8.8 (8.4-10.2) mg/dL Total Bilirubin 0.50 (0.2-1.3) mg/dL AST 53 H (14-36) U/L ALT 38 H (0-35) U/L Alkaline Phosphatase 60 (38-126) U/L Troponin I (0.000-0.034) ng/mL NT-Pro-B Natriuret Pep 169 (0-1800) pg/mL Serum Total Protein 6.5 (6.3-8.2) g/dL Albumin 3.5 (3.5-5.0) g/dL Microbiology 12/08/19 13:04 Urine Culture - Preliminary Clean Catch Midstream NO GROWTH TO DATE - Radiology Impressions Radiology Exams & Impressions: Radiology Procedures Category Date Time Status CHEST 1 VIEW (PORTABLE) Stat Exams 12/08/19 13:16 Completed Assessment/Plan (1) UTI (urinary tract infection) Current Visit: Yes Status: Acute Qualifiers: Urinary tract infection type: acute pyelonephritis Qualified Code(s): N10 - Acute pyelonephritis Assessment & Plan: Chief Complaint Diagnosis UTI, WEAKNESS Allergies Allergy/AdvReac Type Severity Reaction Status Date / Time ciprofloxacin [From Cipro] Allergy Mild Rash Verified 12/08/19 12:58 donepezil Allergy Mild Nausea Verified 12/08/19 12:58 duloxetine [From Cymbalta] Allergy Mild Rash Verified 12/08/19 12:58 gabapentin Allergy Mild Rash Verified 12/08/19 12:58 Penicillins Allergy Mild rashes Verified 12/08/19 12:58 Sulfa (Sulfonamide Allergy Mild Hives Verified 12/08/19 12:58 Antibiotics) cortisone [Cortisone] Allergy Unknown Verified 12/08/19 12:58 omeprazole Allergy Unknown Verified 12/08/19 12:58 Vital Signs (Last 24 hours) Temp Pulse Resp BP Pulse Ox 12/09/19 13:00 104/57 12/09/19 12:00 98.5 F 63 20 85/49 93 L 12/09/19 07:46 97.9 F 71 18 117/57 95 12/09/19 03:51 98.6 F 86 18 123/61 94 L 12/08/19 23:35 98.6 F 76 20 135/65 95 12/08/19 20:00 98.6 F 72 18 132/65 94 L Current Medications Generic Name Dose Route Start Last Admin Trade Name Freq PRN Reason Stop Dose Admin Acetaminophen 650 mg 12/08/19 15:09 12/09/19 07:20 Tylenol 325 Mg PO 01/07/20 15:08 650 mg Q4H PRN PRN Administration PAIN, FEVER, HEADACHE Acyclovir 400 mg 12/08/19 22:00 12/09/19 09:37 Zovirax 200 Mg PO 01/07/20 21:59 400 mg BID NAVIN Administration Allopurinol 100 mg 12/09/19 10:00 12/09/19 09:37 Zyloprim 100 Mg PO 01/08/20 09:59 100 mg DAILY NAVIN Administration Aspirin 81 mg 12/09/19 10:00 12/09/19 09:37 Ecotrin 81 Mg PO 01/08/20 09:59 81 mg DAILY NAVIN Administration Carvedilol 3.125 mg 12/08/19 22:00 12/08/19 22:35 Coreg 3.125 Mg PO 01/07/20 21:59 3.125 mg HS NAVIN Administration Ergocalciferol 50,000 unit 12/21/19 07:00 Vitamin D2 PO 01/20/20 06:59 Q30D NAVIN Sodium Chloride 1,000 mls @ 75 mls/hr 12/08/19 15:09 12/09/19 13:35 Sodium Chloride 0.9% 1000 Ml IV 01/07/20 15:08 75 mls/hr .[id number] NAVIN Administration Ceftriaxone Sodium/Dextrose 1 g in 50 mls @ 100 mls/hr 12/09/19 10:00 12/09/19 09:31 Rocephin 1 Gm-D5w 50 Ml Bag IV 01/08/20 09:59 100 mls/hr Q24H10 NAVIN Administration Isosorbide Mononitrate 30 mg 12/09/19 10:00 12/09/19 09:37 Imdur 30 Mg PO 01/08/20 09:59 30 mg DAILY NAVIN Administration Memantine 10 mg 12/08/19 22:00 12/09/19 09:31 Namenda 5 Mg PO 01/07/20 21:59 10 mg BID NAVIN Administration Mirabegron 25 mg 12/09/19 10:00 12/09/19 10:42 Myrbetriq PO 01/08/20 09:59 25 mg DAILY NAVIN Administration Multivitamins Therapeutic 1 tab 12/09/19 10:00 12/09/19 09:37 Theragran Multivitamin PO 01/08/20 09:59 1 tab DAILY NAVIN Administration Ondansetron HCl 4 mg 12/08/19 15:09 Zofran 4 Mg/2 Ml Vial IV 01/07/20 15:08 Q6H PRN PRN NAUSEA/VOMITING Simvastatin 10 mg 12/08/19 22:00 12/08/19 22:35 Zocor 10mg PO 01/07/20 21:59 10 mg HS NAVIN Administration Spironolactone 50 mg 12/09/19 10:00 12/09/19 09:37 Aldactone 25 Mg PO 01/08/20 09:59 50 mg BID NAVIN Administration Discontinued Medications Generic Name Dose Route Start Last Admin Trade Name Freq PRN Reason Stop Dose Admin Famotidine 20 mg 12/08/19 13:02 12/08/19 13:12 Pepcid 20 Mg Vial IV 12/08/19 13:03 20 mg STAT ONE Administration Famotidine Confirm 12/08/19 13:11 Pepcid 20 Mg Vial Administered 12/08/19 13:12 Dose 20 mg IV .STK-MED ONE Sodium Chloride 1,000 mls @ 100 mls/hr 12/08/19 13:15 12/08/19 13:12 Sodium Chloride 0.9% 1000 Ml IV 01/07/20 13:14 100 mls/hr .Q10H NAVIN Administration Ceftriaxone Sodium/Dextrose 1 g in 50 mls @ 100 mls/hr 12/08/19 14:17 12/08/19 14:59 Rocephin 1 Gm-D5w 50 Ml Bag IV 12/08/19 14:46 Infused STAT STA Infusion Ceftriaxone Sodium/Dextrose Confirm 12/08/19 14:21 Rocephin 1 Gm-D5w 50 Ml Bag Administered 12/08/19 14:22 Dose 1 g in 50 mls @ ud IV .STK-MED ONE Ketorolac Tromethamine 30 mg 12/09/19 07:24 12/09/19 07:31 Toradol 30 Mg Injection IV 12/09/19 07:25 30 mg STAT ONE Administration Ondansetron HCl 4 mg 12/08/19 13:02 12/08/19 13:12 Zofran 4 Mg/2 Ml Vial IV 12/08/19 13:03 4 mg STAT ONE Administration Ondansetron HCl Confirm 12/08/19 13:10 Zofran 4 Mg/2 Ml Vial Administered 12/08/19 13:11 Dose 4 mg .ROUTE .STK-MED ONE Spironolactone 25 mg 12/08/19 22:00 12/08/19 22:34 Aldactone 25 Mg PO 01/07/20 21:59 25 mg BID NAVIN Administration Intake & Output (Last 24 hours) 12/07/19 12/08/19 12/09/19 12/10/19 11:59 11:59 11:59 11:59 Intake Total 2564 240 Output Total 3100 Balance -536 240 Weight 79.8 kg Microbiology Results (Last 24 hours) 12/08/19 13:04 Clean Catch Midstream Urine Culture - Preliminary NO GROWTH TO DATE Laboratory Results (Last 24 hours) 12/09/19 12/09/19 12/09/19 04:32 04:32 04:30 WBC 3.6 L RBC 3.77 L Hgb 12.2 Hct 36.0 MCV 95.5 MCH 32.4 H MCHC 33.9 RDW 13.6 Plt Count 126 L MPV 10.6 Gran % 43.4 Eos # (Auto) 0.03 Absolute Lymphs (auto) 1.60 Absolute Monos (auto) 0.39 Lymphocytes % 44.6 H Monocytes % 10.9 Eosinophils % 0.8 Basophils % 0.3 Absolute Granulocytes 1.56 Basophils # 0.01 Sodium 131 L Potassium 4.5 Chloride 99 Carbon Dioxide 27 Anion Gap 9.8 BUN 16 Creatinine 0.99 Estimated GFR 57.5 Glucose 98 Calcium 8.8 Total Bilirubin 0.50 AST 53 H ALT 38 H Alkaline Phosphatase 60 Troponin I NT-Pro-B Natriuret Pep 169 Serum Total Protein 6.5 Albumin 3.5 12/09/19 12/08/19 12/08/19 01:15 21:40 19:15 WBC RBC Hgb Hct MCV MCH MCHC RDW Plt Count MPV Gran % Eos # (Auto) Absolute Lymphs (auto) Absolute Monos (auto) Lymphocytes % Monocytes % Eosinophils % Basophils % Absolute Granulocytes Basophils # Sodium Potassium Chloride Carbon Dioxide Anion Gap BUN Creatinine Estimated GFR Glucose Calcium Total Bilirubin AST ALT Alkaline Phosphatase Troponin I 0.017 0.014 < 0.012 NT-Pro-B Natriuret Pep Serum Total Protein Albumin Orders (Last 24 hours) Category Date Time Status Infection Control Consult ROUTINE Cons 12/08/19 17:46 Active Vat Skimmer/Discharge Plan ROUTINE Cons 12/08/19 17:46 Active BNP [NT PRO BNP] Urgent Lab 12/09/19 04:30 Completed CBC W DIFF AM.LAB Lab 12/09/19 04:32 Completed CMP AM.LAB Lab 12/09/19 04:32 Completed TROPONIN Q3H Lab 12/08/19 16:15 Completed TROPONIN Q3H Lab 12/08/19 19:15 Completed TROPONIN Q3H Lab 12/08/19 21:40 Completed TROPONIN Q3H Lab 12/09/19 01:15 Completed Acyclovir 200 mg Cap [Zovirax 200 mg ] Med 12/08/19 22:00 Active 400 mg PO BID Allopurinol 100 mg [Zyloprim 100 mg] Med 12/09/19 10:00 Active 100 mg PO DAILY Aspirin EC 81 mg [Ecotrin 81 mg] Med 12/09/19 10:00 Active 81 mg PO DAILY Carvedilol 3.125 mg [Coreg 3.125 MG] Med 12/08/19 22:00 Active 3.125 mg PO HS Ceftriaxone 1 GM/50 ML PREMIX* [ROCEPHIN 1 Gm-D5w 50 ml Med 12/09/19 10:00 Active Bag] 1 g in 50 ml IV Q24H10 Ergocalciferol (Vitamin D2) [Vitamin D2] Med 12/21/19 07:00 Active 50,000 unit PO Q30D Isosorbide Mononitrate 30 mg [Imdur 30 MG] Med 12/09/19 10:00 Active 30 mg PO DAILY KETOROLAC trometh 30 mg Inj [TORAdol 30 mg Injection Med 12/09/19 07:24 Discontinued ] 30 mg IV STAT ONE Memantine HCl 5 mg [Namenda 5 MG] Med 12/08/19 22:00 Active 10 mg PO BID Mirabegron [Myrbetriq] Med 12/09/19 10:00 Active 25 mg PO DAILY Multivitamins,Therapeutic Tab* [Theragran Multivitamin* Med 12/09/19 10:00 Active ] 1 tab PO DAILY Simvastatin 10 mg [Zocor 10MG] Med 12/08/19 22:00 Active 10 mg PO HS Spironolactone 25 mg [Aldactone 25 MG] Med 12/08/19 22:00 Discontinued 25 mg PO BID Spironolactone 25 mg [Aldactone 25 MG] Med 12/09/19 10:00 Active 50 mg PO BID OT Screen per Nursing Assess ONCE OT 12/08/19 17:46 Active PT Eval & Treat (MD Order) ROUTINE PT 12/09/19 08:45 Completed PT Screen per Nursing Assess ONCE PT 12/08/19 17:46 Completed Patient Care Notes (Last 24 hours) 12/09/19 13:08 Case Management Note by Solange Cisneros S/W [facility] AT [facility]. SHE REPORTS ALL THAT IS NEEDED FOR [facility] IS TO NOTIFY THEM AT [place] AT [phone]. THEY WILL NEED FAXED THE DC INSTRUCTIONS, DC MED LIST AND DC (SUMMARY IF AVAILABLE) TO [phone] AT TIME OF DC Initialized on 12/09/19 13:08 - END OF NOTE 12/09/19 00:14 Nursing Note by Eli Avila LATE ENTRY: pt refused Acyclovir this evening during med pass. pt states she takes 400mg of Acyclovir only once per day and that is in the morning. pt stated she did not want the night-time dose. designer writer will pass on to day shift. acyclovir returned to [facility]. Initialized on 12/09/19 00:14 - END OF NOTE Code(s): N39.0 - URINARY TRACT INFECTION, SITE NOT SPECIFIED (2) Osteoarthritis Current Visit: Yes Status: Acute Qualifiers: Osteoarthritis location: multiple joints Osteoarthritis type: primary Qualified Code(s): M89.49 - Other hypertrophic osteoarthropathy, multiple sites Code(s): M19.90 - UNSPECIFIED OSTEOARTHRITIS, UNSPECIFIED SITE (3) Generalized weakness Current Visit: Yes Status: Acute Code(s): R53.1 - WEAKNESS
[2019-12-09] MEDS: solu-MEDROL 40 MG IV SCH (18:39)
[2019-12-09] MEDS: Coreg 3.125 MG PO SCH (21:24)
[2019-12-09] MEDS: Zocor 10MG PO SCH (21:26)
[2019-12-10] MEDS: solu-MEDROL 40 MG IV SCH ×2 (02:43→11:03)
[2019-12-10] MEDS: Sodium Chloride 0.9% 1000 ML 1,000 ML IV SCH (03:00)
[2019-12-10] MEDS: ROCEPHIN 1 Gm-D5w 50 ml Bag** 1 G/50 ML IVPB IV SCH (10:00)
[2019-12-10] MEDS: Aldactone 25 MG PO SCH (10:01)
[2019-12-10] MEDS: ZOVIRAX 200 MG PO SCH (10:01)
[2019-12-10] MEDS: Namenda 5 MG PO SCH (10:02)
[2019-12-10] MEDS: ECOTRIN 81 MG PO SCH (10:02)
[2019-12-10] MEDS: THERAGRAN MULTIVITAMIN PO SCH (10:02)
[2019-12-10] MEDS: MYRBETRIQ PO SCH (10:02)
[2019-12-10] MEDS: Imdur 30 MG PO SCH (10:02)
[2019-12-10] MEDS: ZYLOPRIM 100 MG PO SCH (10:02)
[2019-12-10 15:43] VITALS: BP 127/58; PULSE 67; O2SAT 94
[2019-12-21] MEDS ORDERED: VITAMIN D2 PO SCH (07:00)
== END 2019-12-10 15:02 | disposition home or self-care (01) ==
LOC: ED 12:40 → MED SURG 14:59 → INTOOBSV 14:59
PROVIDERS: ADMIT General Practice; ATTEND General Practice
DX: N39.0 Urinary tract infection, site not specified (principal); R53.1 Weakness; R06.02 Shortness of breath; M19.90 Unspecified osteoarthritis, unspecified site; Z79.899 Other long term (current) drug therapy
CPT/HCPCS: 36000; 36415; 71045; 80053; 81001; 82150; 83605; 83690; 83880; 84484; 85025; 87086; 96360; 96365; 96374; 96375; 99285; G0378; J0696; J1885; J2405; J2920; A9270-GY

== ENCOUNTER 2019-12-13 10:37 | Observation (INO) | payer MEDICARE ==
[2019-12-13] MEDS ORDERED: Sodium Chloride 0.9% 1000 ML 1,000 ML IV SCH ×2 (11:00→15:45)
[2019-12-13] MEDS ORDERED: Sodium Chloride 0.9% 1000 ML 1,000 ML ONE (11:07)
--- NOTE | 2019-12-13 11:37 | XRAY ---
Indication: Short of breath and weakness. Comparison: December 08, 2019. Portable chest demonstrates new mild left base infiltrate/atelectasis with tiny effusion. Remaining heart and right lung normal again with left AICD.
[2019-12-13 11:51] LABS: Hemoglobin 13.7 gm/dl (12.0-16.0); Mean Cell Volume 94.9 fl (78-100); Mean Corpuscular Hemoglobin 31.7 pg (26-32); Mean Corpuscular Hgb Concent. 33.4 g/dl (32-36); Mean Platelet Volume 10.2 fl (7.5-11.0); Platelet Count 179 K/mm3 (150-450); Red Blood Count 4.32 M/mm3 (4.1-5.4); Red Cell Distribution Width 13.7 % (11.5-14.0); White Blood Count 5.1 K/mm3 (4.0-10.5)
[2019-12-13 11:55] LABS: Appearance CLEAR (CLEAR); Bilirubin NEGATIVE (NEGATIVE); Blood SMALL Ery/ul (0-5); Glucose NEGATIVE (NEGATIVE); Ketones NEGATIVE (NEGATIVE); Leukocyte Esterase NEGATIVE (NEGATIVE); Nitrite NEGATIVE (NEGATIVE); Protein,Urine Dip NEGATIVE (Negative); Specific Gravity 1.012 (1.005-1.025); Urobilinogen NEGATIVE mg/dL (0-1)
[2019-12-13 11:59] LABS: INR 1.06 (0.8-3.0)
[2019-12-13 12:02] LABS: PTT 25.9 SECONDS (25.3-37.0)
[2019-12-13 12:25] LABS: Group A Strep NOT DETECTED (NEGATIVE)
[2019-12-13 12:31] LABS: INFLUENZA A NEGATIVE (NEGATIVE); INFLUENZA B NEGATIVE (NEGATIVE); RESPIRATORY SYNCTIAL VIRUS NEGATIVE (Negative)
[2019-12-13 12:40] LABS: ALBUMIN 4.1 g/dL (3.5-5.0); ALKALINE PHOSPHATASE 73 U/L (38-126); AMYLASE 81 U/L (30-110); ANION GAP 11.4 MEQ/L (5-15); BLOOD UREA NITROGEN 16 mg/dL (7-17); CHLORIDE 94 mmol/L (98-107); CK-Creatinine Phosphokinase 45 U/L (30-135); Calcium 9.4 mg/dL (8.4-10.2); Carbon Dioxide 29 mmol/L (22-30); Creatinine 1 0.91 mg/dL (0.52-1.04); EST GLOMERULAR FILTRATION RATE > 60.0 ML/MIN; Ferritin 227 ng/mL (11.1-264); Glucose 106 mg/dL (74-106); LDH-LACTATE DEHYDROGENASE 205 U/L (120-246); LIPASE 140 U/L (23-300); MAGNESIUM 1.7 mg/dL (1.6-2.3); NT PRO BNP 273 pg/mL (0-1800); Potassium 3.9 mmol/L (3.5-5.1); SGOT/AST 43 U/L (14-36); SGPT/ALT 31 U/L (0-35); SODIUM 131 mmol/L (137-145); Total Protein 7.3 g/dL (6.3-8.2)
--- NOTE | 2019-12-13 13:50 | ERPHSYRPT ---
- History of Present Illness Time Seen by Provider: 12/13/19 10:55 Source: patient Exam Limitations: no limitations Patient Subjective Stated Complaint: Pt states "My kids want me to have a rapid covid test. I have been tested once and it came back negative but I am not any better. I just feel horrible. I am weak and tired." Triage Nursing Assessment: Pt presented alert and oriented X 3, skin pwd Pt ambulates with assistance. Pt in no apparent respiratory distress. PT has generalized weakness and is moaning. Physician History: Patient is a 79-year-old female who has been tested for COVID recently and was negative during her brief hospital stay last Friday. She repeats her visit to the ER today because she is feeling no better and the family wants her to have another COVID test. She was admitted to [facility] on the . She also complains of body aches and fever. She has had some vomiting and diarrhea. She was slightly hyponatremic when she was here before and she did have a urinary tract infection when she was here before. Timing/Duration: day(s) (6) Activities at Onset: none Severity of Dyspnea-Max: mild Severity of Dyspnea-Current: mild Possible Cause: occasional episodes Modifying Factors: Improves With: exertion Associated Symptoms: cough, insomnia, loss of appetite, weakness Allergies/Adverse Reactions: ciprofloxacin [From Cipro] Allergy (Mild, Verified 12/08/19 12:58) Rash donepezil Allergy (Mild, Verified 12/08/19 12:58) Nausea duloxetine [From Cymbalta] Allergy (Mild, Verified 12/08/19 12:58) Rash gabapentin Allergy (Mild, Verified 12/08/19 12:58) Rash Penicillins Allergy (Mild, Verified 12/08/19 12:58) rashes Sulfa (Sulfonamide Antibiotics) Allergy (Mild, Verified 12/08/19 12:58) Hives cortisone [Cortisone] Allergy (Unknown, Verified 12/08/19 12:58) omeprazole Allergy (Unknown, Verified 12/08/19 12:58) Home Medications: Aspirin EC 81 mg [Ecotrin 81 mg] 81 mg PO DAILY 02/02/13 [History] Isosorbide Mononitrate 30 mg [Imdur 30 MG] 30 mg PO DAILY 02/02/13 [History] Spironolactone 25 mg [Aldactone 25 MG] 50 mg PO BID 02/02/13 [History] Allopurinol 100 mg [Zyloprim 100 mg] 100 mg PO DAILY 08/25/18 [History] Carvedilol 3.125 mg [Coreg 3.125 MG] 3.125 mg PO HS 08/25/18 [History] Ergocalciferol (Vitamin D2) [Vitamin D2] 50,000 unit PO UD 08/25/18 [History] Memantine HCl 10 mg PO BID 08/25/18 [History] Multivitamin [Multivitamins] 1 each PO DAILY 08/25/18 [History] Rosuvastatin Calcium 5 mg PO HS 08/25/18 [History] Mirabegron [Myrbetriq] 25 mg PO DAILY 09/17/18 [History] Hx Tetanus, Diphtheria Vaccination/Date Given: Yes Hx Influenza Vaccination/Date Given: Yes Hx Pneumococcal Vaccination/Date Given: Yes Immunizations Up to Date: Yes Travel Risk - International Travel Have you traveled outside of the country in past 3 weeks: No - Coronavirus Screening Are you exhibiting any of the following symptoms?: Yes Symptoms: Fever Close contact with a COVID-19 positive Pt in past 14-21 Days: No - Review of Systems Constitutional: Fever, Lethargy, Malaise, Weakness, No Chills Eyes: No Symptoms Ears, Nose, & Throat: No Symptoms Respiratory: Cough, Dyspnea Cardiac: No Chest Pain, No Edema, No Syncope Abdominal/Gastrointestinal: No Abdominal Pain, No Nausea, No Vomiting, No Diarrhea Genitourinary Symptoms: No Dysuria Musculoskeletal: No Back Pain, No Neck Pain Skin: No Rash Neurological: No Dizziness, No Focal Weakness, No Sensory Changes Psychological: No Symptoms Endocrine: No Symptoms All Other Systems: Reviewed and Negative - Past Medical History Pertinent Past Medical History: Yes Neurological History: Migraines ENT History: Cataracts Cardiac History: Arrhythmia, Congestive Heart Failure, High Cholesterol, Hypertension Respiratory History: CHF Endocrine Medical History: No Pertinent History Musculoskeletal History: Arthritis, Osteoarthritis GI Medical History: Diverticulosis, GERD, Polyps History: Renal Disease Psycho-Social History: Anxiety Female Reproductive Disorders: Abnormal Uterine Bleeding 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 - Past Surgical History Past Surgical History: Yes Neuro Surgical History: No Pertinent History Cardiac: Cardiac Catheterization, Internal Defibrillator, Pacemaker Respiratory: No Pertinent History Gastrointestinal: Cholecystectomy Genitourinary: Other Musculoskeletal: Other Female Surgical History: Hysterectomy Other Surgical History: right knee Arthoscopy - Social History Smoking Status: Never smoker Exposure to second hand smoke: No Drug Use: none Patient Lives Alone: No - Nursing Vital Signs Nursing Vital Signs: Initial Vital Signs Temperature 99.7 F 12/13/19 10:54 Pulse Rate 76 12/13/19 10:54 Respiratory Rate 22 12/13/19 10:54 Blood Pressure 138/69 12/13/19 10:54 O2 Sat by Pulse Oximetry 94 L 12/13/19 10:54 Pain Scale Pain Intensity 0 - Physical Exam General Appearance: moderate distress, alert Eye Exam: PERRL/EOMI Neck Exam: normal inspection, supple Respiratory Exam: diminished breath sounds, crackles/rales (Left base) Cardiovascular/Chest Exam: normal heart sounds, regular rate/rhythm Abdominal/Gastrointestinal Exam: soft, No tenderness, No distention, No mass Extremity Exam: non-tender, normal range of motion, normal inspection, no calf tenderness, no pedal edema Peripheral Pulses Exam: carotid (R): 2+, carotid (L): 2+ Neurologic Exam: alert, oriented x 3, cooperative, public speaking teacher II-XII nml as tested, sensation nml, No motor deficits Skin Exam: normal color, warm, No dry SpO2 Interpretation: normal SpO2: 97 O2 Delivery: Room Air - Course Nursing assessment & vital signs reviewed: Yes EKG Interpreted by Me: RATE (History rhythm no other interpretation possible) - Radiology Exams Chest X-ray Interpretation: Reviewed by me, Pneumonia (Chest x-ray shows a new developing left lower lobe infiltrate) Ordered Tests: Active Orders 24 hr Category Date Time Status Printing Manager STAT Care 12/13/19 10:59 Active EKG-ER Only STAT Care 12/13/19 11:00 Active Pulse Oximetry (ED) STAT Care 12/13/19 10:58 Active CHEST 1 VIEW (PORTABLE) Stat Exams 12/13/19 10:59 Completed AMYLASE Stat Lab 12/13/19 11:30 Completed BLOOD CULTURE Stat Lab 12/13/19 11:40 Received CBC W DIFF Stat Lab 12/13/19 10:58 Completed CK-Creatinine Phosphokinase Stat Lab 12/13/19 11:30 Completed CMP Stat Lab 12/13/19 11:30 Completed Ferritin Stat Lab 12/13/19 11:30 Completed LDH-LACTATE DEHYDROGENASE Stat Lab 12/13/19 11:30 Completed LIPASE Stat Lab 12/13/19 11:30 Completed Lactic Acid Stat Lab 12/13/19 10:58 Completed MAGNESIUM Stat Lab 12/13/19 11:30 Completed Manual Differential NC Stat Lab 12/13/19 10:58 Completed [place] Screen Stat Lab 12/13/19 11:30 Completed NT PRO BNP Stat Lab 12/13/19 11:30 Completed PROTIME WITH INR Stat Lab 12/13/19 11:30 Completed PTT Stat Lab 12/13/19 11:30 Completed TROPONIN Q3H Lab 12/13/19 11:30 Completed TROPONIN Q3H Lab 12/13/19 14:15 Ordered TROPONIN Q3H Lab 12/13/19 17:15 Ordered TROPONIN Q3H Lab 12/13/19 20:15 Ordered TROPONIN Q3H Lab 12/13/19 23:15 Ordered UA W/RFX UR CULTURE Stat Lab 12/13/19 11:05 Completed Medication Summary Generic Name Dose Route Start Last Admin Trade Name Freq PRN Reason Stop Dose Admin Sodium Chloride 1,000 mls @ 100 mls/hr 12/13/19 11:00 12/13/19 11:08 Sodium Chloride 0.9% 1000 Ml IV 01/12/20 10:59 100 mls/hr .Q10H NAVIN Administration Lab/Rad Data: Laboratory Result Diagrams 12/13/19 10:58 12/13/19 11:30 Laboratory Results 12/13/19 12/13/19 12/13/19 Range/Units 11:42 11:30 11:30 WBC (4.0-10.5) K/mm3 RBC (4.1-5.4) M/mm3 Hgb (12.0-16.0) gm/dl Hct (35-47) % MCV (78-100) fl MCH (26-32) pg MCHC (32-36) g/dl RDW (11.5-14.0) % Plt Count (150-450) K/mm3 MPV (7.5-11.0) fl PT (9.95-12.35) SECONDS INR (0.8-3.0) APTT (25.3-37.0) SECONDS Sodium (137-145) mmol/L Potassium (3.5-5.1) mmol/L Chloride (98-107) mmol/L Carbon Dioxide (22-30) mmol/L Anion Gap (5-15) MEQ/L BUN (7-17) mg/dL Creatinine (0.52-1.04) mg/dL Estimated GFR ML/MIN Glucose (74-106) mg/dL Lactic Acid (0.4-2.0) Calcium (8.4-10.2) mg/dL Magnesium (1.6-2.3) mg/dL Ferritin (11.1-264) ng/mL Total Bilirubin (0.2-1.3) mg/dL AST (14-36) U/L ALT (0-35) U/L Alkaline Phosphatase (38-126) U/L Lactate Dehydrogenase (120-246) U/L Creatine Kinase (30-135) U/L Troponin I 0.017 (0.000-0.034) ng/mL NT-Pro-B Natriuret Pep (0-1800) pg/mL Serum Total Protein (6.3-8.2) g/dL Albumin (3.5-5.0) g/dL Amylase (30-110) U/L Lipase (23-300) U/L Urine Color (YELLOW) Urine Appearance (CLEAR) Urine pH (5-6) Ur Specific [place] (1.005-1.025) Urine Protein (Negative) Urine Ketones (NEGATIVE) Urine Blood (0-5) Joao/ul Urine Nitrite (NEGATIVE) Urine Bilirubin (NEGATIVE) Urine Urobilinogen (0-1) mg/dL Ur Leukocyte Esterase (NEGATIVE) Urine WBC (Auto) (0-5) /HPF Urine RBC (Auto) (0-2) /HPF U Epithel Cells (Auto) (FEW) /HPF Urine Bacteria (Auto) (NEGATIVE) /HPF Urine Culture Reflexed (NO) Urine Glucose (NEGATIVE) mg/dL Monoscreen NEGATIVE (Negative) Influenza Type A Ag NEGATIVE (NEGATIVE) Influenza Type B Ag NEGATIVE (NEGATIVE) RSV (PCR) NEGATIVE (Negative) Group A Strep Antibody NOT DETECTED (NEGATIVE) 12/13/19 12/13/19 12/13/19 Range/Units 11:30 11:30 11:05 WBC (4.0-10.5) K/mm3 RBC (4.1-5.4) M/mm3 Hgb (12.0-16.0) gm/dl Hct (35-47) % MCV (78-100) fl MCH (26-32) pg MCHC (32-36) g/dl RDW (11.5-14.0) % Plt Count (150-450) K/mm3 MPV (7.5-11.0) fl PT 12.0 (9.95-12.35) SECONDS INR 1.06 (0.8-3.0) APTT 25.9 (25.3-37.0) SECONDS Sodium 131 L (137-145) mmol/L Potassium 3.9 (3.5-5.1) mmol/L Chloride 94 L (98-107) mmol/L Carbon Dioxide 29 (22-30) mmol/L Anion Gap 11.4 (5-15) MEQ/L BUN 16 (7-17) mg/dL Creatinine 0.91 (0.52-1.04) mg/dL Estimated GFR > 60.0 ML/MIN Glucose 106 (74-106) mg/dL Lactic Acid (0.4-2.0) Calcium 9.4 (8.4-10.2) mg/dL Magnesium 1.7 (1.6-2.3) mg/dL Ferritin 227 (11.1-264) ng/mL Total Bilirubin 0.70 (0.2-1.3) mg/dL AST 43 H (14-36) U/L ALT 31 (0-35) U/L Alkaline Phosphatase 73 (38-126) U/L Lactate Dehydrogenase 205 (120-246) U/L Creatine Kinase 45 (30-135) U/L Troponin I (0.000-0.034) ng/mL NT-Pro-B Natriuret Pep 273 (0-1800) pg/mL Serum Total Protein 7.3 (6.3-8.2) g/dL Albumin 4.1 (3.5-5.0) g/dL Amylase 81 (30-110) U/L Lipase 140 (23-300) U/L Urine Color YELLOW (YELLOW) Urine Appearance CLEAR (CLEAR) Urine pH 6.0 (5-6) Ur Specific [place] 1.012 (1.005-1.025) Urine Protein NEGATIVE (Negative) Urine Ketones NEGATIVE (NEGATIVE) Urine Blood SMALL (0-5) Joao/ul Urine Nitrite NEGATIVE (NEGATIVE) Urine Bilirubin NEGATIVE (NEGATIVE) Urine Urobilinogen NEGATIVE (0-1) mg/dL Ur Leukocyte Esterase NEGATIVE (NEGATIVE) Urine WBC (Auto) NONE (0-5) /HPF Urine RBC (Auto) NONE (0-2) /HPF U Epithel Cells (Auto) NONE (FEW) /HPF Urine Bacteria (Auto) NONE (NEGATIVE) /HPF Urine Culture Reflexed NO (NO) Urine Glucose NEGATIVE (NEGATIVE) mg/dL Monoscreen (Negative) Influenza Type A Ag (NEGATIVE) Influenza Type B Ag (NEGATIVE) RSV (PCR) (Negative) Group A Strep Antibody (NEGATIVE) 12/13/19 12/13/19 Range/Units 10:58 10:58 WBC 5.1 (4.0-10.5) K/mm3 RBC 4.32 (4.1-5.4) M/mm3 Hgb 13.7 (12.0-16.0) gm/dl Hct 41.0 (35-47) % MCV 94.9 (78-100) fl MCH 31.7 (26-32) pg MCHC 33.4 (32-36) g/dl RDW 13.7 (11.5-14.0) % Plt Count 179 (150-450) K/mm3 MPV 10.2 (7.5-11.0) fl PT (9.95-12.35) SECONDS INR (0.8-3.0) APTT (25.3-37.0) SECONDS Sodium (137-145) mmol/L Potassium (3.5-5.1) mmol/L Chloride (98-107) mmol/L Carbon Dioxide (22-30) mmol/L Anion Gap (5-15) MEQ/L BUN (7-17) mg/dL Creatinine (0.52-1.04) mg/dL Estimated GFR ML/MIN Glucose (74-106) mg/dL Lactic Acid 1.2 (0.4-2.0) Calcium (8.4-10.2) mg/dL Magnesium (1.6-2.3) mg/dL Ferritin (11.1-264) ng/mL Total Bilirubin (0.2-1.3) mg/dL AST (14-36) U/L ALT (0-35) U/L Alkaline Phosphatase (38-126) U/L Lactate Dehydrogenase (120-246) U/L Creatine Kinase (30-135) U/L Troponin I (0.000-0.034) ng/mL NT-Pro-B Natriuret Pep (0-1800) pg/mL Serum Total Protein (6.3-8.2) g/dL Albumin (3.5-5.0) g/dL Amylase (30-110) U/L Lipase (23-300) U/L Urine Color (YELLOW) Urine Appearance (CLEAR) Urine pH (5-6) Ur Specific [place] (1.005-1.025) Urine Protein (Negative) Urine Ketones (NEGATIVE) Urine Blood (0-5) Joao/ul Urine Nitrite (NEGATIVE) Urine Bilirubin (NEGATIVE) Urine Urobilinogen (0-1) mg/dL Ur Leukocyte Esterase (NEGATIVE) Urine WBC (Auto) (0-5) /HPF Urine RBC (Auto) (0-2) /HPF U Epithel Cells (Auto) (FEW) /HPF Urine Bacteria (Auto) (NEGATIVE) /HPF Urine Culture Reflexed (NO) Urine Glucose (NEGATIVE) mg/dL Monoscreen (Negative) Influenza Type A Ag (NEGATIVE) Influenza Type B Ag (NEGATIVE) RSV (PCR) (Negative) Group A Strep Antibody (NEGATIVE) - Progress Progress: unchanged Air Movement: fair Blood Culture(s) Obtained: Yes Antibiotics given: Yes - Departure Departure Disposition: Observation Clinical Impression: Pneumonia, Suspected COVID-19 virus infection Condition: Fair Critical Care Time: No Referrals: JAZZY RICHTER MD [Primary Care Provider] -
[2019-12-13] MEDS ORDERED: ROCEPHIN 1 Gm-D5w 50 ml Bag** 1 G/50 ML IVPB IV STA (14:34)
[2019-12-13] MEDS ORDERED: Zithromax 500 MG/ 250 ML NaCl Premix 500 MG/250 ML IVPB IV ONE ×2 (14:35→15:07)
[2019-12-13] MEDS ORDERED: ROCEPHIN 1 Gm-D5w 50 ml Bag** 1 G/50 ML IVPB IV ONE (15:07)
[2019-12-13] MEDS ORDERED: DILAUDID 2 MG INJECTION IV PRN ×2 (15:45→16:22)
[2019-12-13] MEDS ORDERED: Zofran 4 MG/2 ML VIAL IV PRN ×2 (15:45→16:22)
[2019-12-13 16:33] LABS: Lymphocytes 19 % (24-44); Monocyte 6 % (0.0-12.0); Neutrophils 75 % (36.0-66.0); Total Cells Counted 100
[2019-12-13 16:34] LABS: Platelet Estimate NORMAL (NORMAL)
[2019-12-13] MEDS ORDERED: TYLENOL 325 MG PO PRN (16:58)
[2019-12-13] MEDS: Namenda 5 MG PO SCH (21:11)
[2019-12-13] MEDS: Zocor 10MG PO SCH (21:12)
[2019-12-13] MEDS: Aldactone 25 MG PO SCH (21:12)
[2019-12-13] MEDS: Coreg 3.125 MG PO SCH (21:12)
[2019-12-13] MEDS: DELTASONE 5 MG PO SCH (21:13)
[2019-12-13] MEDS ORDERED: NON-FORMULARY ITEM (Rosuvastatin Calcium [Rosuvastatin Calcium] 5 MG) PO SCH (22:00)
[2019-12-14 05:40] LABS: ALBUMIN 3.5 g/dL (3.5-5.0); ALKALINE PHOSPHATASE 65 U/L (38-126); BLOOD UREA NITROGEN 15 mg/dL (7-17); CHLORIDE 95 mmol/L (98-107); Calcium 8.6 mg/dL (8.4-10.2); Carbon Dioxide 26 mmol/L (22-30); Creatinine 1 0.83 mg/dL (0.52-1.04); EST GLOMERULAR FILTRATION RATE > 60.0 ML/MIN; Glucose 135 mg/dL (74-106); Hematocrit 39.1 % (35-47); Hemoglobin 13.3 gm/dl (12.0-16.0); Mean Cell Volume 94.2 fl (78-100); Mean Platelet Volume 10.3 fl (7.5-11.0); Platelet Count 177 K/mm3 (150-450); Potassium 3.7 mmol/L (3.5-5.1); Red Blood Count 4.15 M/mm3 (4.1-5.4); Red Cell Distribution Width 13.7 % (11.5-14.0); SGOT/AST 40 U/L (14-36); SGPT/ALT 27 U/L (0-35); SODIUM 128 mmol/L (137-145); Total Protein 6.7 g/dL (6.3-8.2); White Blood Count 5.4 K/mm3 (4.0-10.5)
[2019-12-14 07:27] LABS: ATYPICAL LYMPHS 2 %; BAND 1 % (0.0-2.0); Lymphocytes 30 % (24-44); Monocyte 8 % (0.0-12.0); Neutrophils 59 % (36.0-66.0); Total Cells Counted 100
[2019-12-14 07:28] LABS: Absolute Neutrophil Ct (ANC) 3.23 (1.4-6.9); Platelet Estimate NORMAL (NORMAL)
[2019-12-14] MEDS: Miralax Powder 17GM PACKET PO SCH (09:18)
[2019-12-14] MEDS: ROCEPHIN 1 Gm-D5w 50 ml Bag** 1 G/50 ML IVPB IV SCH (09:19)
[2019-12-14] MEDS: THERAGRAN MULTIVITAMIN PO SCH (09:20)
[2019-12-14] MEDS: Imdur 30 MG PO SCH (09:20)
[2019-12-14] MEDS: Namenda 5 MG PO SCH ×2 (09:20→21:28)
[2019-12-14] MEDS: ZYLOPRIM 100 MG PO SCH (09:20)
[2019-12-14] MEDS: Aldactone 25 MG PO SCH ×2 (09:21→21:27)
[2019-12-14] MEDS: ECOTRIN 81 MG PO SCH (09:21)
[2019-12-14] MEDS: DELTASONE 5 MG PO SCH ×2 (09:21→21:28)
[2019-12-14] MEDS ORDERED: ROCEPHIN 1 Gm-D5w 50 ml Bag** 1 G/50 ML IVPB IV SCH (10:00)
[2019-12-14] MEDS ORDERED: NON-FORMULARY ITEM (Multivitamin [Multivitamins] 1 EACH) PO SCH (10:00)
[2019-12-14] MEDS ORDERED: Zithromax 500 MG/ 250 ML NaCl Premix 500 MG/250 ML IVPB IV SCH (10:00)
[2019-12-14] MEDS: Lexapro 10 MG PO SCH (11:12)
[2019-12-14] MEDS: MYRBETRIQ PO SCH (11:13)
[2019-12-14] MEDS: Coreg 3.125 MG PO SCH (21:27)
[2019-12-14] MEDS: Zocor 10MG PO SCH (21:28)
[2019-12-15 07:21] VITALS: PULSE 74
[2019-12-15] MEDS: Aldactone 25 MG PO SCH (10:47)
[2019-12-15] MEDS: DELTASONE 5 MG PO SCH (10:48)
[2019-12-15] MEDS: Namenda 5 MG PO SCH (10:48)
[2019-12-15] MEDS: Lexapro 10 MG PO SCH (10:48)
[2019-12-15] MEDS: MYRBETRIQ PO SCH (10:49)
[2019-12-15] MEDS: Imdur 30 MG PO SCH (10:49)
[2019-12-15] MEDS: THERAGRAN MULTIVITAMIN PO SCH (10:49)
[2019-12-15] MEDS: ECOTRIN 81 MG PO SCH (10:49)
[2019-12-15] MEDS: Miralax Powder 17GM PACKET PO SCH (10:49)
[2019-12-15] MEDS: ZYLOPRIM 100 MG PO SCH (10:49)
[2019-12-15] MEDS: ROCEPHIN 1 Gm-D5w 50 ml Bag** 1 G/50 ML IVPB IV SCH ×2 (10:50→11:04)
[2019-12-15] MEDS ORDERED: ZOFRAN ODT 4 MG PO PRN (11:36)
[2019-12-15 11:57] VITALS: BP 114/56; O2SAT 92
--- NOTE | 2019-12-15 12:04 | PCM.SSS ---
History of Present Illness - Chief Complaint Chief Complaint: Pneumonia History of Present Illness: is a 79-year-old female who has been tested for COVID recently and was negative during her brief hospital stay last Friday. She repeats her visit to the ER today because she is feeling no better and the family wants her to have another COVID test. She was admitted to [facility] on the . She also complains of body aches and fever. She has had some vomiting and diarrhea. She was sli ghtly hyponatremic when she was here before and she did have a urinary tract infection when she was here before. Timing/Duration: day(s) (6) Activities at Onset: none Severity of Dyspnea-Max: mild Severity of Dyspnea-Current: mild Possible Cause: occasional episodes Modifying Factors: Improves With: exertion Associated Symptoms: cough, insomnia, loss of appetite, weakness - Review of Systems Constitutional: Lethargy, No Fever, No Chills Eyes: No Symptoms Ears, Nose, & Throat: No Symptoms Respiratory: Cough, Orthopnea, Short Of Breath Cardiac: No Chest Pain, No Edema, No Syncope Abdominal/Gastrointestinal: No Abdominal Pain, No Nausea, No Vomiting, No D iarrhea Genitourinary Symptoms: No Dysuria Musculoskeletal: No Back Pain, No Neck Pain Skin: No Rash Neurological: No Dizziness, No Focal Weakness, No Sensory Changes Psychological: No Symptoms Endocrine: No Symptoms Hematologic/Lymphatic: No Symptoms Immunological/Allergic: No Symptoms Medications & Allergies Home Medications: Home Medication List Aspirin EC 81 mg [Ecotrin 81 mg] 81 mg PO DAILY 02/02/13 [History Confirmed 12/13/19] Isosorbide Mononitrate 30 mg [Imdur 30 MG] 30 mg PO DAILY 02/02/13 [History Confirmed 12/13/19] Spironolactone 25 mg [Aldactone 25 MG] 50 mg PO BID 02/02/13 [History Confirmed 12/13/19] Allopurinol 100 mg [Zyloprim 100 mg] 100 mg PO DAILY 08/25/18 [History Confirmed 12/13/19] Carvedilol 3.125 mg [Coreg 3.125 MG] 3.125 mg PO HS 08/25/18 [History Confirmed 12/13/19] Ergocalciferol (Vitamin D2) [Vitamin D2] 50,000 unit PO UD 08/25/18 [History Confirmed 12/13/19] Memantine HCl 10 mg PO BID 08/25/18 [History Confirmed 12/13/19] Multivitamin [Multivitamins] 1 each PO DAILY 08/25/18 [History Confirmed 12/13/19] Rosuvastatin Calcium 5 mg PO HS 08/25/18 [History Confirmed 12/13/19] Mirabegron [Myrbetriq] 25 mg PO DAILY 09/17/18 [History Confirmed 12/13/19] Prednisone 5 mg [Deltasone 5 mg] 5 mg PO BID 10 Days #20 tablet 12/10/19 [Rx Confirmed 12/13/19] Albuterol/Ipratropium 3ml Neb* [DUONEB 0.5-3 MG/3 ml Neb] 3 ml IH TID 30 Days #42 ampul.neb 12/15/19 [Rx] Cephalexin Mh 500 mg [Keflex 500 mg] 500 mg PO TID 7 Days #30 capsule 12/15/19 [Rx] Allergies/Adverse Reactions: Allergies Allergy/AdvReac Type Severity Reaction Status Date / Time azithromycin [From Zithromax] Allergy Mild Itching Verified 12/13/19 17:22 ciprofloxacin [From Cipro] Allergy Mild Rash Verified 12/08/19 12:58 donepezil Allergy Mild Nausea Verified 12/08/19 12:58 duloxetine [From Cymbalta] Allergy Mild Rash Verified 12/08/19 12:58 gabapentin Allergy Mild Rash Verified 12/08/19 12:58 Penicillins Allergy Mild rashes Verified 12/08/19 12:58 Sulfa (Sulfonamide Allergy Mild Hives Verified 12/08/19 12:58 Antibiotics) cortisone [Cortisone] Allergy Unknown Verified 12/08/19 12:58 omeprazole Allergy Unknown Verified 12/08/19 12:58 - Past Medical History Past Medical History: Yes Neurological History: Migraines ENT History: Cataracts Cardiac History: Arrhythmia, Congestive Heart Failure, High Cholesterol, Hypertension Respiratory History: CHF Endocrine Medical History: No Pertinent History Musculoskelatal History: Arthritis, Osteoarthritis GI Medical History: Diverticulosis, GERD, Polyps History: Renal Disease Pyscho-Social History: Anxiety Reproductive Disorders: Abnormal Uterine Bleeding Comment: 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 - Female History Are you now?: No - Past Surgical History Past Surgical History: Yes Neuro Surgical History: No Pertinent History Cardiac History: Cardiac Catheterization, Internal Defibrillator, Pacemaker Respiratory Surgery: No Pertinent History GI Surgical History: Cholecystectomy Genitourinary Surgical Hx: No Pertinent History Musculskeletal Surgical Hx: Other Female Surgical History: Hysterectomy Other Surgical History: right knee Arthoscopy - Social History Smoking Status: Never smoker Exposure to second hand smoke: No Alcohol: None Drug Use: none - Physical Exam Vital Signs: Vital Signs - 24 hr Temp Pulse Resp BP Pulse Ox 12/15/19 11:56 98.8 F 74 16 114/56 92 L 12/15/19 07:20 98.9 F 74 16 116/68 97 12/15/19 04:45 99.0 F 73 17 121/56 94 L 12/15/19 00:53 98.1 F 110 H 19 110/65 94 L 12/14/19 20:54 98.5 F 84 19 95/50 94 L 12/14/19 16:56 98.5 F 79 20 102/57 92 L 12/14/19 13:00 98.4 F 79 20 103/54 91 L General Appearance: no apparent distress, alert Neurologic Exam: alert, oriented x 3, cooperative, normal mood/affect, nml cerebellar function, nml station & gait, sensation nml, No motor deficits Eye Exam: PERRL/EOMI, eyes nml inspection Ears, Nose, Throat Exam: normal ENT inspection, TMs normal, pharynx normal, moist mucous membranes Neck Exam: normal inspection, non-tender, supple, full range of motion Respiratory Exam: normal breath sounds, crackles/rales, rhonchi, No respiratory distress Cardiovascular Exam: regular rate/rhythm, normal heart sounds, normal peripheral pulses Gastrointestinal/Abdomen Exam: soft, normal bowel sounds, No tenderness, No mass Back Exam: normal inspection, normal range of motion, No CVA tenderness, No vertebral tenderness Extremity Exam: normal inspection, normal range of motion, pelvis stable Skin Exam: normal color, warm, dry, No rash Lymphatic Exam: No adenopathy Results - Labs Lab/Micro Results: Microbiology 12/13/19 11:40 Blood Culture - Preliminary Blood NO GROWTH TO DATE 08/24/20 11:30 Blood Culture - Preliminary Blood NO GROWTH TO DATE Assessment/Plan (1) Debility, unspecified Current Visit: Yes Status: Acute Code(s): R53.81 - OTHER MALAISE (2) Pneumonia Current Visit: Yes Status: Acute Qualifiers: Laterality: right Lung location: lower lobe of lung Code(s): J18.9 - PNEUMONIA, UNSPECIFIED ORGANISM (3) Suspected COVID-19 virus infection Current Visit: Yes Status: Acute Code(s): Z20.828 - CONTACT W AND EXPOSURE TO OTH VIRAL COMMUNICABLE DISEASES (4) HTN (hypertension) Current Visit: No Status: Acute Code(s): I10 - ESSENTIAL (PRIMARY) HYPERTENSION (5) Osteoarthritis Current Visit: No Status: Acute Qualifiers: Code(s): M19.90 - UNSPECIFIED OSTEOARTHRITIS, UNSPECIFIED SITE Hospital Summary - Hospital Course Hospital Course: Chief Complaint Diagnosis Pneumonia Allergies Allergy/AdvReac Type Severity Reaction Status Date / Time azithromycin [From Zithromax] Allergy Mild Itching Verified 12/13/19 17:22 ciprofloxacin [From Cipro] Allergy Mild Rash Verified 12/08/19 12:58 donepezil Allergy Mild Nausea Verified 12/08/19 12:58 duloxetine [From Cymbalta] Allergy Mild Rash Verified 12/08/19 12:58 gabapentin Allergy Mild Rash Verified 12/08/19 12:58 Penicillins Allergy Mild rashes Verified 12/08/19 12:58 Sulfa (Sulfonamide Allergy Mild Hives Verified 12/08/19 12:58 Antibiotics) cortisone [Cortisone] Allergy Unknown Verified 12/08/19 12:58 omeprazole Allergy Unknown Verified 12/08/19 12:58 Vital Signs (Last 24 hours) Temp Pulse Resp BP Pulse Ox 12/15/19 11:56 98.8 F 74 16 114/56 92 L 12/15/19 07:20 98.9 F 74 16 116/68 97 12/15/19 04:45 99.0 F 73 17 121/56 94 L 12/15/19 00:53 98.1 F 110 H 19 110/65 94 L 12/14/19 20:54 98.5 F 84 19 95/50 94 L 12/14/19 16:56 98.5 F 79 20 102/57 92 L 12/14/19 13:00 98.4 F 79 20 103/54 91 L Home Medications Medication Instructions Recorded Confirmed Last Taken Type Albuterol/Ipratropium 3ml Neb* 3 ml IH TID 30 Days #42 ampul.neb 12/15/19 Unknown Rx [DUONEB 0.5-3 MG/3 ml Neb] Cephalexin Mh 500 mg [Keflex 500 500 mg PO TID 7 Days #30 capsule 12/15/19 Unknown Rx mg] Current Medications Generic Name Dose Route Start Last Admin Trade Name Freq PRN Reason Stop Dose Admin Acetaminophen 650 mg 12/13/19 16:58 12/14/19 00:30 Tylenol 325 Mg PO 01/12/20 16:57 650 mg Q4H PRN PRN Administration PAIN AND/OR FEVER Allopurinol 100 mg 12/14/19 10:00 12/15/19 10:49 Zyloprim 100 Mg PO 01/13/20 09:59 100 mg DAILY NAVIN Administration Aspirin 81 mg 12/14/19 10:00 12/15/19 10:49 Ecotrin 81 Mg PO 01/13/20 09:59 81 mg DAILY NAVIN Administration Carvedilol 3.125 mg 12/13/19 22:00 12/14/19 21:27 Coreg 3.125 Mg PO 01/12/20 21:59 Not Given HS NAVIN Ergocalciferol 50,000 unit 12/21/19 10:00 Vitamin D2 PO 01/20/20 09:59 Q30D NAVIN Escitalopram Oxalate 10 mg 12/14/19 10:00 12/15/19 10:48 Lexapro 10 Mg PO 01/13/20 09:59 10 mg QAM NAVIN Administration Hydromorphone HCl 0.5 mg 12/13/19 16:22 Dilaudid 2 Mg Injection IV 12/18/19 16:21 Q4H PRN PRN PAIN Ceftriaxone Sodium/Dextrose 1 g in 50 mls @ 100 mls/hr 12/14/19 10:00 12/15/19 11:04 Rocephin 1 Gm-D5w 50 Ml Bag IV 01/13/20 09:59 Not Given Q24H10 NAVIN Isosorbide Mononitrate 30 mg 12/14/19 10:00 12/15/19 10:49 Imdur 30 Mg PO 01/13/20 09:59 30 mg DAILY NAVIN Administration Memantine 10 mg 12/13/19 22:00 12/15/19 10:48 Namenda 5 Mg PO 01/12/20 21:59 10 mg BID NAVIN Administration Mirabegron 25 mg 12/14/19 10:00 12/15/19 10:49 Myrbetriq PO 01/13/20 09:59 25 mg DAILY NAVIN Administration Multivitamins Therapeutic 1 tab 12/14/19 10:00 12/15/19 10:49 Theragran Multivitamin PO 01/13/20 09:59 1 tab DAILY NAVIN Administration Ondansetron HCl 4 mg 12/13/19 16:22 Zofran 4 Mg/2 Ml Vial IV 01/12/20 16:21 Q6H PRN PRN NAUSEA/VOMITING Ondansetron HCl 4 mg 12/15/19 11:36 12/15/19 11:43 Zofran Odt 4 Mg PO 01/14/20 11:35 4 mg Q6H PRN PRN Administration NAUSEA/VOMITING Polyethylene Glycol 17 gm 12/14/19 10:00 12/15/19 10:49 Miralax Powder 17gm Packet PO 01/13/20 09:59 17 gm DAILY NAVIN Administration Prednisone 5 mg 12/13/19 22:00 12/15/19 10:48 Deltasone 5 Mg PO 01/12/20 21:59 5 mg BID NAVIN Administration Simvastatin 10 mg 12/13/19 22:00 12/14/19 21:28 Zocor 10mg PO 01/12/20 21:59 10 mg HS NAVIN Administration Spironolactone 50 mg 12/13/19 22:00 12/15/19 10:47 Aldactone 25 Mg PO 01/12/20 21:59 50 mg BID NAVIN Administration Discontinued Medications Generic Name Dose Route Start Last Admin Trade Name Freq PRN Reason Stop Dose Admin Hydromorphone HCl 0.5 mg 12/13/19 15:45 Dilaudid 2 Mg Injection IV 12/18/19 15:44 Q4H PRN PRN PAIN Sodium Chloride 1,000 mls @ 100 mls/hr 12/13/19 11:00 12/13/19 11:08 Sodium Chloride 0.9% 1000 Ml IV 01/12/20 10:59 100 mls/hr .Q10H NAVIN Administration Ceftriaxone Sodium/Dextrose 1 g in 50 mls @ 100 mls/hr 12/13/19 14:34 12/13/19 15:21 Rocephin 1 Gm-D5w 50 Ml Bag IV 12/13/19 15:03 100 mls/hr STAT STA 100 mls/hr Administration Azithromycin 500 mg in 250 mls @ 250 mls/hr 12/13/19 14:35 12/13/19 15:51 Zithromax 500 Mg/ 250 Ml Nacl Premix IV 12/13/19 15:34 250 mls/hr STAT ONE Administration Azithromycin Confirm 12/13/19 15:07 Zithromax 500 Mg/ 250 Ml Nacl Premix Administered 12/13/19 15:08 Dose 500 mg in 250 mls @ ud IV .STK-MED ONE Ceftriaxone Sodium/Dextrose Confirm 12/13/19 15:07 Rocephin 1 Gm-D5w 50 Ml Bag Administered 12/13/19 15:08 Dose 1 g in 50 mls @ ud IV .STK-MED ONE Sodium Chloride 1,000 mls @ 100 mls/hr 12/13/19 15:45 Sodium Chloride 0.9% 1000 Ml IV 01/12/20 15:44 .Q10H NAVIN Azithromycin 500 mg in 250 mls @ 250 mls/hr 12/14/19 10:00 Zithromax 500 Mg/ 250 Ml Nacl Premix IV 01/13/20 09:59 Q24H10 NAVIN Ceftriaxone Sodium/Dextrose 1 g in 50 mls @ 100 mls/hr 12/14/19 10:00 Rocephin 1 Gm-D5w 50 Ml Bag IV 01/13/20 09:59 Q24H10 NAVIN Sodium Chloride Confirm 12/13/19 11:07 Sodium Chloride 0.9% 1000 Ml Administered 12/13/19 11:08 Dose 1,000 mls @ ud .ROUTE .STK-MED ONE Ondansetron HCl 4 mg 12/13/19 15:45 Zofran 4 Mg/2 Ml Vial IV 01/12/20 15:44 Q6H PRN PRN NAUSEA/VOMITING Intake & Output (Last 24 hours) 12/13/19 12/14/19 12/15/19 12/16/19 11:59 11:59 11:59 11:59 Intake Total 1385 1318 Output Total 258 172 Balance 688 668 Weight 72.6 kg 77 kg Microbiology Results (Last 24 hours) 12/13/19 11:40 Blood Blood Culture Gram Stain - Pending 12/13/19 11:40 Blood Blood Culture - Preliminary NO GROWTH TO DATE 12/13/19 11:30 Blood Blood Culture Gram Stain - Pending 12/13/19 11:30 Blood Blood Culture - Preliminary NO GROWTH TO DATE Orders (Last 24 hours) Category Date Time Status Discharge Routine Discharge 12/15/19 Ordered Discharge/Telephone Order Routine Discharge 12/15/19 Active Ergocalciferol (Vitamin D2) [Vitamin D2] Med 12/21/19 10:00 Active 50,000 unit PO Q30D Ondansetron ODT 4 MG [Zofran Odt 4 mg] Med 12/15/19 11:36 Active 4 mg PO Q6H PRN PRN Patient Care Notes (Last 24 hours) 12/15/19 11:31 Physical Therapy Note by Stephanie Munson PT. IN BED UPON P.T. ARRIVAL TO ROOM. REPORTS SHE IS FEELING ABOUT THE SAME. AGREEABLE TO WALK. IS TO D/C TO [facility] TO CONT. W/ REHAB THIS PM. BED MOBILITY CGA-SBA W/ HOB ELEVATED. DIFFICULTY NOTED W/ SCOOTING TO EDGE OF BED BUT PT. WAS ABLE TO DO W/ SBA. SIT TO STAND - CGA. PT. AMBULATED ~ 60' W/ ROLLER WALKER AND CGA. REQUIRES V.C. TO PROMOTE ERECT POSTURE SHE AMBULATES W/ SIGNIFICANT KYPHOSIS. ALSO NEEDS CUEING TO PROMOTE FOOT POSITION IN MIDDLE OF WALKER SHE TENDS TO KEEP FEET TOO FAR POSTERIOR WHICH DECREASES BALANCE OF WALKER. PT. C/O NAUSEA AT END OF WALK. PROVIDED HER W/ EMESIS BAG AND CALL LIGHT. NURSE NOTIFIED WELL OF NAUSEA. STEPHANIE MUNSON PT Initialized on 12/15/19 11:31 - END OF NOTE 12/15/19 11:23 Case Management Note by Solange Cisneros S/W LAYLA AT [facility]- THEY HAVE ACCEPTED PATIENT AND GOT APPROVAL FROM INSURANCE. THEY ARE READY FOR HER TODAY. PATIENT INFORMED AND VERIFIED UNDERSTANDING. SON-SANJANA UPDATED WELL. PLAN TO TRANSITION TO [facility] TODAY. Initialized on 12/15/19 11:23 - END OF NOTE 12/14/19 14:34 Case Management Note by Nelda Ernst COMPLETE AT THIS TIME, NO LEVEL II REQUIRED. COPY FAXED TO [facility]. Initialized on 12/14/19 14:34 - END OF NOTE 12/14/19 14:11 Case Management Note by Nelda Ernst CALLED FROM [facility] AND REPORTED THAT SHE HAD STARTED PRECERT WITH PT'S INSURANCE, AND WILL KEEP US POSTED. Initialized on 12/14/19 14:11 - END OF NOTE - Vitals & Intake/Output Vital Signs: Vital Signs Temperature 98.8 F 12/15/19 11:56 Pulse Rate 74 12/15/19 11:56 Respiratory Rate 16 12/15/19 11:56 Blood Pressure 114/56 12/15/19 11:56 O2 Sat by Pulse Oximetry 92 L 12/15/19 11:56 Intake & Output: Intake & Output 12/13/19 12/14/19 12/15/19 12/16/19 11:59 11:59 11:59 11:59 Intake Total 1385 1318 Output Total 700 650 Balance 685 668 Weight 72.6 kg 77 kg - Lab Result Diagrams: 12/14/19 05:00 12/14/19 05:00 Micro Results-Entire Visit: Microbiology 12/13/19 11:40 Blood Culture - Preliminary Blood NO GROWTH TO DATE 12/13/19 11:30 Blood Culture - Preliminary Blood NO GROWTH TO DATE - Procedures and Test Procedures and Tests throughout Hospitalization: Therapy Orders & Screens 12/14/19 09:13 PT Eval & Treat ( Order) ROUTINE Reason for Eval:: NEEDS TO GO TO [facility] FOR REHAB STAY, INSURANCE WILL REQUIRE YOUR EVALUATION FOR PRECERT. Diagnosis: Pneumonia - Discharge Discharge Date: 12/15/19 Disposition: DC TO ANY "OTHER" [facility] Condition: Fair Prescriptions: New Albuterol/Ipratropium 3ml Neb* [DUONEB 0.5-3 MG/3 ml Neb] 3 ml IH TID 30 Days #42 ampul.neb Cephalexin Mh 500 mg [Keflex 500 mg] 500 mg PO TID 7 Days #30 capsule Continue Isosorbide Mononitrate 30 mg [Imdur 30 MG] 30 mg PO DAILY Spironolactone 25 mg [Aldactone 25 MG] 50 mg PO BID Aspirin EC 81 mg [Ecotrin 81 mg] 81 mg PO DAILY Ergocalciferol (Vitamin D2) [Vitamin D2] 50,000 unit PO UD Memantine HCl 10 mg PO BID Rosuvastatin Calcium 5 mg PO HS Carvedilol 3.125 mg [Coreg 3.125 MG] 3.125 mg PO HS Allopurinol 100 mg [Zyloprim 100 mg] 100 mg PO DAILY Multivitamin [Multivitamins] 1 each PO DAILY Mirabegron [Myrbetriq] 25 mg PO DAILY Prednisone 5 mg [Deltasone 5 mg] 5 mg PO BID 10 Days #20 tablet Additional Instructions: [facility] ORDERS: PT/OT EVAL AND TREAT SEE ATTTACHED MEDICATION LIST REGULAR DIET UP WITH ASSIST Follow up with: JAZZY RICHTER MD [Primary Care Provider] - 1 Week
[2019-12-21] MEDS ORDERED: VITAMIN D2 PO SCH (10:00)
== END 2019-12-15 13:05 ==
LOC: ED 10:37 → MED SURG 16:08
PROVIDERS: ADMIT General Practice; ATTEND General Practice
DX: R53.81 Other malaise (principal); J18.9 Pneumonia, unspecified organism; Z20.828 Contact with and (suspected) exposure to other viral communicable diseases; R11.10 Vomiting, unspecified; R19.7 Diarrhea, unspecified; Z79.899 Other long term (current) drug therapy; I10 Essential (primary) hypertension; E78.00 Pure hypercholesterolemia, unspecified; M19.90 Unspecified osteoarthritis, unspecified site; Z11.59 Encounter for screening for other viral diseases
CPT/HCPCS: 36000; 36415; 71045; 80053; 81001; 82150; 82550; 82728; 83605; 83615; 83690; 83735; 83880; 84484; 85025; 85610; 85730; 86140; 86308; 87040; 87631; 87651; 93005; 93041; 94760; 96360; 96365; 96367; 97161; 97530; 99285; G0378; U0003; J0456; J0696; Q0162; A9270-GY

== ENCOUNTER 2024-03-31 11:23 | Day surgery (SDC) | payer MEDICARE, SELFPAY ==
[2024-03-31] MEDS ORDERED: Decadron 4 MG INJ IV ONE (11:24)
[2024-03-31] MEDS ORDERED: Sodium Chloride 0.9(Preservative Free) 10 ML IJ ONE (11:24)
[2024-03-31] MEDS ORDERED: DIPRIVAN 200 MG/20 ML IV ONE (13:15)
--- NOTE | 2024-03-31 14:00 | XRAY ---
45 seconds of fluoroscopy was used in surgery for a right L4-S1 transforaminal SUE.
--- NOTE | 2024-03-31 14:00 | XRAY ---
Indication: Right L4-S1 transforaminal SUE Intraoperative fluoroscopy provided for 45 seconds. 8 digital spot image submitted for interpretation demonstrates posterior needle tips projecting over expected right L4 and L5 nerve roots. Small amount of contrast injected for needle tip placement. Correlate with intraoperative findings/report.
== END 2024-03-31 13:59 | disposition home or self-care (01) ==
LOC: SDC-PAIN 11:23
PROVIDERS: ATTEND Psychiatry & Neurology Pain Medicine
DX: M47.816 Spondylosis without myelopathy or radiculopathy, lumbar region (principal); M54.16 Radiculopathy, lumbar region; E11.9 Type 2 diabetes mellitus without complications
CPT/HCPCS: 64483; 64484; 72100; 77003; 82947; J1100; J2704; Q9966

== ENCOUNTER 2024-05-12 10:35 | Day surgery (SDC) | payer MEDICARE, SELFPAY ==
[2024-05-12] MEDS ORDERED: Depo-Medrol 40 MG/ML IM ONE (10:36)
[2024-05-12] MEDS ORDERED: BUPIVACAINE 0.5% VIAL IJ ONE (10:36)
[2024-05-12] MEDS ORDERED: SYNVISC 16 MG/2 ML SYRINGE IU ONE (10:36)
[2024-05-12] MEDS ORDERED: LIDOCAINE HCL 1% AMPUL 5 ML IJ ONE (10:36)
--- NOTE | 2024-05-12 13:24 | XRAY ---
Indication: Right knee, pes anserine bursa, and supra/infrapatella injection. Intraoperative fluoroscopy provided for 5 seconds. Single digital spot image submitted for interpretation demonstrates needle tip projecting over right femur intercondylar notch. Small amount of contrast injected for needle tip placement. Correlate with intraoperative findings/report.
--- NOTE | 2024-05-12 14:57 | XRAY ---
5 seconds of fluoroscopy was used in surgery for a right intra-articular knee, pes anserine bursa, infrapatellar and suprapatellar injection.
== END 2024-05-12 12:18 | disposition home or self-care (01) ==
LOC: SDC-PAIN 10:35
PROVIDERS: ATTEND Psychiatry & Neurology Pain Medicine
DX: M17.11 Unilateral primary osteoarthritis, right knee (principal); E11.9 Type 2 diabetes mellitus without complications
CPT/HCPCS: 20550; 20610; 73560; 77002; 82947; J7325; Q9966

== ENCOUNTER 2024-05-19 13:10 | Day surgery (SDC) | payer MEDICARE ==
[2024-05-19] MEDS ORDERED: SYNVISC 16 MG/2 ML SYRINGE IU ONE (13:11)
[2024-05-19] MEDS ORDERED: LIDOCAINE HCL 1% AMPUL 5 ML IJ ONE (13:11)
--- NOTE | 2024-05-19 16:32 | XRAY ---
Indication: Right knee injection. Intraoperative fluoroscopy provided for 8 seconds. Single digital spot image submitted for interpretation demonstrates needle tip projecting over right femur intercondylar notch. Small amount of contrast injected for needle tip placement. Correlate with intraoperative findings/report.
--- NOTE | 2024-05-19 16:45 | XRAY ---
8 seconds of fluoroscopy was used in surgery for a right intra-articular knee injection.
== END 2024-05-19 15:00 | disposition home or self-care (01) ==
LOC: SDC-PAIN 13:10
PROVIDERS: ATTEND Psychiatry & Neurology Pain Medicine
DX: M17.11 Unilateral primary osteoarthritis, right knee (principal); E11.9 Type 2 diabetes mellitus without complications
CPT/HCPCS: 20610; 73560; 77002; 82947; J7325; Q9966

== ENCOUNTER 2024-05-26 13:06 | Day surgery (SDC) | payer MEDICARE ==
[2024-05-26] MEDS ORDERED: BUPIVACAINE 0.5% VIAL IJ ONE (13:07)
[2024-05-26] MEDS ORDERED: SYNVISC 16 MG/2 ML SYRINGE IU ONE (13:07)
[2024-05-26] MEDS ORDERED: LIDOCAINE HCL 1% AMPUL 5 ML IJ ONE (13:07)
[2024-05-26] MEDS ORDERED: MORPHINE SULFATE 2 MG INJ ONE (14:30)
--- NOTE | 2024-05-26 14:52 | XRAY ---
Indication: Right knee injection. Intraoperative fluoroscopy provided for 5 seconds. Single digital spot image submitted for interpretation demonstrates needle tip projecting over right femur intercondylar notch. Small amount of contrast injected for needle placement. Correlate with intraoperative findings/report.
--- NOTE | 2024-05-26 15:00 | XRAY ---
5 seconds of fluoroscopy was used in surgery for a right intra-articular knee injection.
== END 2024-05-26 14:49 | disposition home or self-care (01) ==
LOC: SDC-PAIN 13:06
PROVIDERS: ATTEND Psychiatry & Neurology Pain Medicine
DX: M17.11 Unilateral primary osteoarthritis, right knee (principal); E11.9 Type 2 diabetes mellitus without complications
CPT/HCPCS: 73560; 77002; 82947; J2270; J7325